=== PATIENT | male | born 1945 ===

== ENCOUNTER 2021-03-28 17:29 | Emergency (ER) | payer MEDICARE, MEDICAID, SELFPAY ==
--- NOTE | ~2021-03-28 | XR_ITS ---
EXAMINATION: XR CHEST CLINICAL INFORMATION: Wheezing and dizziness. COMPARISON: None TECHNIQUE: Frontal view of the chest was obtained. 7:36 PM FINDINGS: Small linear band of atelectasis or scarring just above left diaphragm. The lungs are otherwise normally aerated. No acute abnormality. No pulmonary vascular congestion. There is no pleural effusion. The heart size is normal. The cardiac and mediastinal contours are normal. There are calcifications of the thoracic aorta. Normal gas filled loops under both right and left diaphragm. No evidence of free air in the abdomen. There are multilevel degenerative changes of dorsal spine. XR/XR chest 1V IMPRESSION: No acute abnormality of chest.
--- NOTE | ~2021-03-28 | CT_ITS ---
EXAMINATION: CT HEAD WITHOUT CONTRAST CLINICAL INFORMATION: Dizzy 5 days, history of pituitary tumor COMPARISON: None TECHNIQUE: Contiguous axial imaging was performed from the skull base to vertex without intravenous administration of contrast. This CT examination was performed using dose optimization techniques as appropriate, variously including the following: *Automated exposure control *Adjustment of mA and/or kV according to patient size (this includes techniques or standardized protocols for targeted exams where dose is matched to indication/reason for exam; i.e. extremities or head) *Use of iterative reconstruction technique DLP: 780 mGy-cm FINDINGS: There is no evidence of acute intracranial hemorrhage or territorial infarction. Mass is noted in the left aspect of the sella, suboptimally assessed on CT. No significant mass effect or midline shift is seen. Corley to white matter differentiation is well preserved. No extra-axial fluid collections are identified. The ventricles are normal in size. There is mild periventricular white matter hypoattenuation consistent with chronic small vessel ischemic disease. Mild volume loss is noted. The osseous structures and soft tissues are normal. The mastoid air cells and visualized portions of the paranasal sinuses are well aerated. CT/CT head/brain wo con IMPRESSION: No acute intracranial pathology. Sellar mass in keeping with history of pituitary tumor, suboptimally assessed on CT.
--- NOTE | 2021-03-28 18:55 | ECG_ITS ---
Test Reason : dizzy Blood Pressure : / mmHG Vent. Rate : 057 BPM Atrial Rate : 057 BPM P-R Int : 216 ms QRS Dur : 080 ms QT Int : 448 ms P-R-T Axes : 042 036 063 degrees QTc Int : 436 ms Sinus bradycardia with 1st degree A-V block Nonspecific ST and T wave abnormality Abnormal ECG No previous ECGs available Referred By: Generic ED Physician Electronically Signed By:ALFONZO CERDA
[2021-03-28 18:57] VITALS: BP 185/100; PULSE 62; RESP 20; TEMP 36.2; O2SAT 96; BMI 30.2
[2021-03-28 19:27] LABS: MANUAL DIFF FLAG NO
[2021-03-28 19:44] LABS: Basophils Percent Auto 0.7 % (0-2); Eosinophils Absolute Auto 0.2 X10*3/uL (0.0-0.4); Eosinophils Percent Auto 2.6 % (0-4); Hematocrit 39.2 % (42.0-52.0); Hemoglobin 12.7 g/dl (14.0-18.0); Imm Gran Abs Auto 0.01 X10*3/uL (0.00-0.03); Imm Gran Pct Auto 0.2 % (0.0-0.4); Lymphocytes Absolute Auto 1.5 X10*3/uL (1.2-4.9); Lymphocytes Percent Auto 24.5 % (20-40); Mean Corpuscular HGB Conc 32.4 g/dl (31.0-36.0); Mean Corpuscular Hemoglobin 28.4 pg (27.0-33.0); Mean Corpuscular Volume 87.7 fL (80.0-98.0); Mean Platelet Volume 10.3 fL (9.4-12.4); Monocytes Absolute Auto 0.4 X10*3/uL (0.1-1.2); Monocytes Percent Auto 7.2 % (2-11); Neutrophils Percent Auto 64.8 % (45-73); Platelet Count 208 X10*3/uL (160-400); Red Blood Count 4.47 X10*6/uL (4.60-5.80); Red Cell Distribution Width 13.9 % (11.0-16.0); White Blood Count 6.1 X10*3/uL (4.8-10.8)
[2021-03-28 19:47] LABS: COVID-19 Test Negative (Negative); IDNOW Serial# 9DD0AD1C
[2021-03-28 19:55] LABS: Anion Gap 11 (12-20); Blood Urea Nitrogen 15 mg/dL (9-16); Calcium 9.6 mg/dL (8.4-10.2); Carbon Dioxide 28 mmol/L (22-29); Chloride 107 mmol/L (96-108); Creatinine Clr Calc Pharmacy 91.4; Estimated Glomerular Filt Rate > 60; Glucose Random 103 mg/dL (60-115); Potassium 4.3 mmol/L (3.3-5.1); Sodium 142 mmol/L (135-145)
[2021-03-28 20:00] LABS: Troponin-I High Sensitivity 9.1 ng/L (<3.5-35.0)
[2021-03-28 22:47] VITALS: BP 185/103; PULSE 67; RESP 13; O2SAT 99
--- NOTE | 2021-03-28 23:05 | ED_ITS ---
HPI - Dizziness General Chief Complaint: Dizziness Stated Complaint: weakness,dizziness fatigue Time Seen by Provider: 03/28/21 22:39 Source: patient Mode of arrival: ambulatory Limitations: no limitations History of Present Illness HPI Narrative: Patient is brought today to the emergency room by his daughter. Patient is Agerian/Faroese speaking. the Faroese engine installer from the [employer] system the patient could not understand well each other. The engine installer suggested to get an citizen of [place] or surinamese engine installer or Stateless, but none of those 3 languages were available today. Patient understand Icelandic, patient is able to communicate back to us with small sentences. Patient states that for the last 5 days, he has been dizzy. Patient has been taking meclizine. The dizziness is intermittent. At this time patient states that he does not feel dizzy. However, he does feel weak and it has been ongoing for 5 days. Patient denies headache, no chest pain, no shortness of breath. Patient went to see his [facility] physician today and patient was sent to the emergency room. Patient states that he has history of hemorrhoids but at this time they are not bleeding. At this time, patient's only complaint is feeling weak. Denies fever or chills, no UTI symptoms I spoke with the patient's daughter. Seems that the patient has been having memory issues, therefore not compliant with his blood pressure medication. Patient takes amlodipine but today took his 1st dose after many months of not taking his medications. The daughter also reports that the patient falls approximately once to twice a week, seems that patient has been having shuffling-like gait for several months. Also, in 2019, patient had a significant ulcer bleed, patient required 3 units of packed red blood cells transfused. Patient's daughter also informed us that patient did not receive any treatment for the pituitary tumor. It was monitored and these symptoms self-resolved. Related Data Home Medications Medication Instructions Recorded Confirmed amlodipine 10 mg tablet 10 mg PO DAILY 03/28/21 atorvastatin 40 mg tablet 40 mg PO DAILY 03/28/21 cetirizine 10 mg tablet 10 mg PO DAILY PRN 03/28/21 Allergies Allergy/AdvReac Type Severity Reaction Status Date / Time Seasonal Allergies Allergy Mild sneezing, Verified 03/28/21 16:22 watery eyes Review of Systems Verdana 4l Review of Systems: Verdana 4d Verdana 4d Constitutional : No Weight loss, No Fever, No Chills, No Night Sweats, complaining of weakness ENT/Mouth : No Hearing loss, No Ear Pain, No Nasal Congestion, No Sinus Pain, No Hoarseness, No sore throat, No Rhinorrhea, No Swallowing DifficultyDifficulty Eyes: No Eye Pain, No Swelling, No Redness, No Foreign Body, No Discharge, No Vision Changes Cardiovascular : No Chest Pain, No SOB, No Dyspnea on Exertion, No Orthopnea, No Edema, No Palpitations Respiratory : No Cough, No Sputum, No Wheezing, No Smoke Exposure, No Dyspnea Gastrointestinal : No Nausea, No Vomiting, No Diarrhea, No Constipation, No abdominal Pain, No Hematochezia, No Melena Genitourinary : no irregular bleeding, No Dysuria, No Urinary Frequency, No Hematuria, No Urinary Incontinence, No Urgency, No Flank Pain, No Urinary Flow Changes, No Hesitancy Musculoskeletal : No joint pain, No Myalgias, No Joint Swelling Skin : No Skin Lesions, No rash Neuro : No Weakness, No Numbness, No Paresthesias, No Loss of Consciousness, complaining of intermittent dizziness, No Headache Psych : No Anxiety/Panic, No Depression, No SI/HI/AH/VH, No Social Issues, Heme/Lymph: No Bruising, No Bleeding,No Lymphadenopathy Endocrine : No Polyuria, No Polydipsia, No Temperature Intolerance [facility] Past Medical History Medical History (Updated 03/29/21 @ 01:16 by Jessica Child MD) GI bleed Hyperlipidemia Hypertension Seasonal allergies Social History Social History Alcohol intake: never Patient Tobacco Use Status: Never used Tobacco Use of substances other than those prescribed or required for medical reasons: No Advance Directives: No Physical Exam Verdana 4l Vital Signs: Verdana 4d Verdana 4d Vital Signs: Verdana 4d Verdana 4Bd Last Vital Signs Verdana 4d Denture Model Maker New 4d Denture Model Maker New 4d Temp 97.1 F 03/28/21 18:57 Denture Model Maker New 4d Pulse 70 03/28/21 23:21 Denture Model Maker New 4d Resp 13 03/28/21 22:47 BP 195/116 H 03/28/21 23:21 Pulse Ox 99 03/28/21 22:47 BMI result Body Mass Index 30.2 Const: Other: Appearance: Alert. Oriented X3. No acute distress. Eyes: Pupils equal, round and reactive to light. ENT: Pharynx normal. Neck: Normal inspection. Neck supple. No lymph nodes noted. No crepitus CVS: Normal heart rate and rhythm. Pulses normal. Normal S1 and S2 Respiratory: No respiratory distress. Breath sounds normal. No Wheezing. No rales Abdomen: Soft and nontender. No rigidity. No distention. MONICA: Very small amount of blood-tinged mucus, no stool obtained Skin: Skin warm and dry. Normal skin color. Normal skin turgor. Extremities: No lower extremity edema. No Lacerations. No Rash Neuro: Oriented X 3. No motor deficit. No sensory deficit. Moving all extermities. No slurred speech. Course Course Course Narrative: I discussed with the patient's daughter that the patient is having trouble provi ding a urine sample because of incontinence. Patient is not agreeable with the idea of having a straight catheterization. Patient will have a urinalysis with her PCP. Also, discussed with the patient's daughter that the hemoglobin is on the lower side and the guaiac test was positive. It is likely secondary to hemorrhoids, however he may need another colonoscopy. The daughter states the patient had a colonoscopy 2018 and was negative. Also, physical therapy/case management was offered, but patient's daughter will arrange everything to the patient's primary care physician. At this time, patient states that he has no dizziness. Patient's blood pressure on discharge 185 systolic. This blood pressure is chronic. Patient has not been taking any of his medication for months. Patient did receive 1 dose of 100 mg p.o. labetalol, blood pressure dropped from 200 systolic to 185 systolic. Patient states he is asymptomatic. MDM - Dizziness Lab Data Result diagrams: 03/28/21 19:18 03/28/21 19:18 Labs: Lab Results 03/28/21 03/28/21 03/28/21 Range/Units 19:18 19:18 19:18 WBC 6.1 (4.8-10.8) X10*3/uL RBC 4.47 L (4.60-5.80) X10*6/uL Hgb 12.7 L (14.0-18.0) g/dl Hct 39.2 L (42.0-52.0) % MCV 87.7 (80.0-98.0) fL MCH 28.4 (27.0-33.0) pg MCHC 32.4 (31.0-36.0) g/dl RDW 13.9 (11.0-16.0) % Plt Count 208 (160-400) X10*3/uL MPV 10.3 (9.4-12.4) fL Immature Gran % (Auto) 0.2 (0.0-0.4) % Neut % (Auto) 64.8 (45-73) % Lymph % (Auto) 24.5 (20-40) % [place] % (Auto) 7.2 (2-11) % Eos % (Auto) 2.6 (0-4) % Baso % (Auto) 0.7 (0-2) % Lymph # (Auto) 1.5 (1.2-4.9) X10*3/uL [place] # (Auto) 0.4 (0.1-1.2) X10*3/uL Eos # (Auto) 0.2 (0.0-0.4) X10*3/uL Baso # (Auto) 0.0 (0.0-0.2) X10*3/uL Abs Immat Gran (auto) 0.01 (0.00-0.03) X10*3/uL Absolute Neuts (auto) 4.0 (2.0-8.3) x10*3/uL Absolute Nucleated RBC 0.000 (0.0-0.012) X10*3/uL Nucleated RBC % (auto) 0.0 (0.0-0.2) /100WBC Sodium 142 (135-145) mmol/L Potassium 4.3 (3.3-5.1) mmol/L Chloride 107 (96-108) mmol/L Carbon Dioxide 28 (22-29) mmol/L Anion Gap 11 L (12-20) BUN 15 (9-16) mg/dL Creatinine 0.81 (0.5-1.4) mg/dL Estim Creat Clear Calc 91.4 Estimated GFR > 60 Random Glucose 103 (60-115) mg/dL Calcium 9.6 (8.4-10.2) mg/dL Troponin I High Sens 9.1 (<3.5-35.0) ng/L Stool Occult Blood (NEGATIVE) COVID-19 ([facility]) (Negative) COVID-19 Clin Com 03/28/21 03/28/21 Range/Units 19:18 23:29 WBC (4.8-10.8) X10*3/uL RBC (4.60-5.80) X10*6/uL Hgb (14.0-18.0) g/dl Hct (42.0-52.0) % MCV (80.0-98.0) fL MCH (27.0-33.0) pg MCHC (31.0-36.0) g/dl RDW (11.0-16.0) % Plt Count (160-400) X10*3/uL MPV (9.4-12.4) fL Immature Gran % (Auto) (0.0-0.4) % Neut % (Auto) (45-73) % Lymph % (Auto) (20-40) % [place] % (Auto) (2-11) % Eos % (Auto) (0-4) % Baso % (Auto) (0-2) % Lymph # (Auto) (1.2-4.9) X10*3/uL [place] # (Auto) (0.1-1.2) X10*3/uL Eos # (Auto) (0.0-0.4) X10*3/uL Baso # (Auto) (0.0-0.2) X10*3/uL Abs Immat Gran (auto) (0.00-0.03) X10*3/uL Absolute Neuts (auto) (2.0-8.3) x10*3/uL Absolute Nucleated RBC (0.0-0.012) X10*3/uL Nucleated RBC % (auto) (0.0-0.2) /100WBC Sodium (135-145) mmol/L Potassium (3.3-5.1) mmol/L Chloride (96-108) mmol/L Carbon Dioxide (22-29) mmol/L Anion Gap (12-20) BUN (9-16) mg/dL Creatinine (0.5-1.4) mg/dL Estim Creat Clear Calc Estimated GFR Random Glucose (60-115) mg/dL Calcium (8.4-10.2) mg/dL Troponin I High Sens (<3.5-35.0) ng/L Stool Occult Blood POSITIVE (NEGATIVE) COVID-19 ([facility]) Negative (Negative) COVID-19 Clin Com See Note Imaging Data CT scan - head: Radiologist's impression: FINDINGS: There is no evidence of acute intracranial hemorrhage or territorial infarction. Mass is noted in the left aspect of the sella, suboptimally assessed on CT. No significant mass effect or midline shift is seen. Corley to white matter differentiation is well preserved. No extra-axial fluid collections are identified. The ventricles are normal in size. There is mild periventricular white matter hypoattenuation consistent with chronic small vessel ischemic disease. Mild volume loss is noted. The osseous structures and soft tissues are normal. The mastoid air cells and visualized portions of the paranasal sinuses are well aerated. ? CT/CT head/brain wo con IMPRESSION: No acute intracranial pathology. Sellar mass in keeping with history of pituitary tumor, suboptimally assessed on CT. Discharge Plan Discharge Clinical Impression: Weakness, Hypertension, Anemia Patient Disposition: Home, Self-Care Instructions: Weakness (ED) Additional Instructions: Please follow-up with your primary care physician tomorrow. If you have any worsening or new symptoms, please return to the emergency room or call 911 Prescriptions: No Action amlodipine 10 mg tablet 10 mg PO DAILY 0RF atorvastatin 40 mg tablet 40 mg PO DAILY 0RF cetirizine 10 mg tablet 10 mg PO DAILY [id number] Interventions: ED Discharge Assessment Last Done: 03/29/21 01:12
[2021-03-28 23:16] VITALS: BP 183/111; PULSE 63
[2021-03-28] MEDS: Labetalol HCL 100 MG TABLET PO (23:17)
[2021-03-28 23:19] VITALS: BP 189/110; PULSE 68
[2021-03-28 23:21] VITALS: BP 195/116; PULSE 70
[2021-03-28 23:33] LABS: OBS Int Ctl Valid YES; OBS1 POSITIVE (NEGATIVE)
[2021-03-29 01:13] VITALS: BP 185/110; PULSE 68; RESP 14; TEMP 36.4; O2SAT 93
== END 2021-03-29 01:22 | disposition home or self-care (01) ==
PROVIDERS: Emergency Provider Emergency Medicine
DX: R53.1 Weakness (principal); I10 Essential (primary) hypertension; D64.9 Anemia, unspecified; Z20.822 Contact with and (suspected) exposure to COVID-19; Z91.14 Patient's other noncompliance with medication regimen
CPT/HCPCS: 36415; 70450; 71045; 80048; 82272; 84484; 85025; 87635; 93005; 99285

== ENCOUNTER 2021-12-02 06:13 | Emergency (ER) | payer MEDICARE, MEDICAID, SELFPAY ==
--- NOTE | ~2021-12-02 | XR_ITS ---
EXAMINATION: XR HAND, LEFT CLINICAL INFORMATION: Fall. Left hand pain. COMPARISON: None TECHNIQUE: PA, lateral, and oblique views of the left hand. FINDINGS: There is irregular lucency involving the proximal end distal phalanx first digit most suggestive of fracture. No additional fracture seen. There is mild osteopenia There is no soft tissue swelling. XR/XR hand LT min 3V IMPRESSION: Suspect nondisplaced fracture base of distal phalanx proximal segment Mild osteopenia.
--- NOTE | ~2021-12-02 | CT_ITS ---
EXAMINATION: CT BRAIN AND CT CERVICAL SPINE WITHOUT CONTRAST. CLINICAL INFORMATION: Head injury. Fell down the stairs. COMPARISON: CT brain 03/28/2021 TECHNIQUE: 5 mm thin axial and reformatted 2 mm thin sagittal and coronal images of brain were obtained. Subsequently axial 3 mm thin and reformatted 2 mm thin sagittal coronal images of cervical spine were obtained. DL 1366 FINDINGS: Brain: There is no acute intra-axial, extra-axial bleed, masses or midline shift. Both lateral ventricles are symmetrical in size and configuration without enlargement. There is no acute infarction evolution. No evidence of edema. 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 Bone windows reveal no calvarial abnormality. Bilateral paranasal sinuses and mastoid air cells are symmetrical and normal. There is no scalp soft tissue abnormality. Cervical spine: On sagittal reconstructed images there is normal cervical lordosis. The vertebral heights and alignment is normal. There is loss of C5-C6, C6-C7 and C7-T1 disc heights with ventral and posterior spondylosis. No visible acute fracture, dislocations subluxation seen. The craniovertebral junction and the C1-C2 alignment is normal. There is left C3-C4, C4-C5 moderate facet joint arthropathy. No aggressive lytic or sclerotic process seen. The prevertebral and paravertebral soft tissues are normal. CT/CT head/brain wo IV con IMPRESSION: No acute intracranial process seen. No change in known left cerebellar mass from previous exam 03/28/2021. Degenerative disc changes cervical spine see 5-6, C6-C7 and C7-T1 disc levels. No visible acute fracture, dislocation or subluxation seen.
--- NOTE | ~2021-12-02 | CT_ITS ---
EXAMINATION: CT BRAIN AND CT CERVICAL SPINE WITHOUT CONTRAST. CLINICAL INFORMATION: Head injury. Fell down the stairs. COMPARISON: CT brain 03/28/2021 TECHNIQUE: 5 mm thin axial and reformatted 2 mm thin sagittal and coronal images of brain were obtained. Subsequently axial 3 mm thin and reformatted 2 mm thin sagittal coronal images of cervical spine were obtained. DL 1366 FINDINGS: Brain: There is no acute intra-axial, extra-axial bleed, masses or midline shift. Both lateral ventricles are symmetrical in size and configuration without enlargement. There is no acute infarction evolution. No evidence of edema. 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 Bone windows reveal no calvarial abnormality. Bilateral paranasal sinuses and mastoid air cells are symmetrical and normal. There is no scalp soft tissue abnormality. Cervical spine: On sagittal reconstructed images there is normal cervical lordosis. The vertebral heights and alignment is normal. There is loss of C5-C6, C6-C7 and C7-T1 disc heights with ventral and posterior spondylosis. No visible acute fracture, dislocations subluxation seen. The craniovertebral junction and the C1-C2 alignment is normal. There is left C3-C4, C4-C5 moderate facet joint arthropathy. No aggressive lytic or sclerotic process seen. The prevertebral and paravertebral soft tissues are normal. CT/CT cervical spine wo IV con IMPRESSION: No acute intracranial process seen. No change in known left cerebellar mass from previous exam 03/28/2021. Degenerative disc changes cervical spine see 5-6, C6-C7 and C7-T1 disc levels. No visible acute fracture, dislocation or subluxation seen.
[2021-12-02 06:31] VITALS: BP 155/94; PULSE 78; RESP 16; TEMP 37; O2SAT 97; BMI 32.1
--- NOTE | 2021-12-02 06:39 | ECG_ITS ---
Test Reason : chest pain Blood Pressure : / mmHG Vent. Rate : 070 BPM Atrial Rate : 070 BPM P-R Int : 224 ms QRS Dur : 080 ms QT Int : 408 ms P-R-T Axes : 060 -03 077 degrees QTc Int : 440 ms Sinus rhythm with 1st degree A-V block Otherwise normal ECG When compared with ECG of 28-MAR-2021 19:07, Nonspecific ST and T wave abnormality is no longer Present Referred By: Itz Rios Electronically Signed By:JUANITA DIAZ
--- NOTE | 2021-12-02 07:20 | ED_ITS ---
HPI - Fall General Chief Complaint: Fall Stated Complaint: lac on ear Time Seen by Provider: 12/02/21 07:08 Source: patient and family (Daughter, Kerri) Mode of arrival: ambulatory Limitations: language barrier (The patient speaks Slovak and Irish. He does speak some Moroccan. The patient's daughter gave most of the information since the patient does have memory deficits) History of Present Illness HPI Narrative: 76-year-old male who presents emergency department for evaluation of injuries from a fall. The patient was walking down stairs at around 04:30 hours when he lost his balance and fell. The patient was wearing ear buds at the time and he fell on his right side striking the right side of his head and ear as he fell. The ear bud broke and did cause a laceration to his ear. The patient had no l oss of consciousness. He has no headache, nausea or vomiting since the fall. He is complaining of right ear pain , neck pain, left hand pain and lower back pain with pain radiating down his left leg. The patient's daughter Kerri is here in the emergency department. She is a nurse. She states that her father has been falling frequently and was seen last week at [facility] for a fall. Patient had a negative workup at that time. The patient has been referred to physical therapy to try to help with his balance and strength issues. complaint: fall Onset (ago): hour(s) (3) Fall from: down stairs (#) (Walking down stairs, fell down 8 steps) Fall witnessed: no Place fall occurred: home Loss of consciousness: none Prolonged down time: no Symptoms prior to fall: other (He lost his balance) Context: history of frequent falls Location of injury: head, face (Right ear), neck and back (Lower back) Severity: moderate Severity scale (1-10): 7 Quality: sharp Associated symptoms (after fall): numbness (Left leg) Related Data Home Medications Medication Instructions Recorded Confirmed amlodipine 10 mg tablet 10 mg PO DAILY 03/28/21 atorvastatin 40 mg tablet 40 mg PO DAILY 03/28/21 cetirizine 10 mg tablet 10 mg PO DAILY PRN 03/28/21 Previous Rx's Medication Instructions Recorded cephalexin 500 mg capsule 500 mg PO TID 5 days #15 caps 12/02/21 Allergies Allergy/AdvReac Type Severity Reaction Status Date / Time Seasonal Allergies Allergy Mild sneezing, Verified 03/28/21 16:22 watery eyes Review of Systems Review of Systems: Yes all other systems are reviewed and are negative [facility] Past Medical History [facility] Narrative: Social history: The patient lives with his daughter me staton. He does not smoke cigarettes, drink alcohol or use drugs. Medical History GI bleed Hyperlipidemia Hypertension Seasonal allergies Social History Social History Alcohol intake: never Patient Tobacco Use Status: Never used Tobacco Advance Directives: Yes Advance Directives Information Provided: Yes Advance Directives on File: No Physical Exam Vital Signs: Vital Signs: Last Vital Signs Temp 98.6 F 12/02/21 06:31 Pulse 78 12/02/21 06:31 Resp 16 12/02/21 06:31 BP 155/94 H 12/02/21 06:31 Pulse Ox 97 12/02/21 06:31 O2 Del Method 12/02/21 06:31 BMI result Body Mass Index 32.1 Const: Other: Awake, alert, male patient, pleasant, cooperative, does answer questions appropriately, does not appear to be in distress Orientation/consciousness: oriented to person and oriented to place HEENT: Other: 4.0 cm, complex Flap laceration to the right ear. There is also a small area of skin avulsion which is actively bleeding Head: Yes normal to inspection, Yes normocephalic and Yes atraumatic General nose exam: Normal external nose present Face and sinus: Yes normal facial exam Mouth: Normal oral and palatal mucosa present Throat: Yes posterior oropharynx normal Eyes: General: appearance normal, both eyes and all related structures Pupils: Equal, round and reactive pupils present Neck: Other: C-spine tenderness diffusely and tenderness with paraspinal muscles bilaterally Neck: Yes normal visual inspection, Yes no lymphadenopathy, Yes trachea midline and Yes supple Chest: Chest palpation & inspection: normal inspection of the chest and normal palpation of entire chest wall Resp: Effort & Inspection: normal respiratory effort and able to speak in complete sentences Auscultation: clear to auscultation bilaterally Cardio: Rate: regular rate Rhythm: regular rhythm Heart sounds: S1 normal heart sound present, S2 normal heart sound present and no murmurs GI: Inspection: Yes normal to inspection Palpation (GI): Soft to palpation, nontender and no guarding Auscultation: normal bowel sounds : General: Yes no CVA tenderness Back/Spine/Pelvis: Other: Tender bilateral paraspinal muscles, no point tenderness palpation of the vertebrae, increased tenderness on the left compared to the right, negative straight leg raises bilaterally Back: no CVA tenderness Skin: General skin exam: no rashes or lesions noted Neuro: General: oriented to person and oriented to place Cranial nerves: Yes CN's II-XII intact bilaterally and Yes Equal, round and reactive pupils present Cognition (Neuro): normal cognition Motor exam (neuro): 5/5 motor strength present throughout Extrem: General: Yes normal to inspection Psych: Appearance: grossly normal Speech and movement: Normal speech and movement present Affect: normal affect Attitude: cooperative Course Course Course Narrative: 76-year-old male who presents emergency department for evaluation of injuries after falling down 8 steps at 04:30 hours this morning. The patient did strike his head when he fell and also injured his right ear from a year but that broke. He is currently complaining of neck pain, lower back pain and left hand pain. Examination did reveal a flap laceration to the right ear which will require repair. I did order laboratory evaluation includes CBC, CMP, PT/INR, PTT, EKG. I will also obtain a CT scan of the patient's head and cervical spine. X-rays of patient's left hand will be obtained as well. Patient did receive acetaminophen and ibuprofen prior to coming to emergency department for I did order Toradol 15 mg IV for his pain. The daughter would like to avoid narcotics in this patient since she is concerned that all neck is balance worse and making confused and I agree with this plan. 0900: The patient's your laceration was repaired by me using Vicryl Rapide 5.0 sutures times 14 sutures total. Patient tolerated the procedure well. Patient does have a small area of avulsion is air which is oozing blood, this was dressed with bacitracin and a Surgicel dressing. X-ray of the patient's left hand did reveal a fracture of the base of the distal phalanx of the thumb however the patient does not have tenderness palpation of this area in his tenderness is more over the base of the proximal phalanx of the thumb. Patient was placed in a thumb spica splint. 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 CT scan of the cervical spine revealed no acute fractures but significant degenerative disc disease of the cervical spine C5-6, C6-C7, C7-T1. The patient will be started on ibuprofen and Tylenol for pain. He has also started prophylactically on Keflex 500 mg 3 times a day for 5 days to try to prevent infection of the cartilage of his ear.. Procedures Procedure Narrative Procedure Narrative: Complex 4.0 flap laceration to the right ear: The patient's laceration was prepped with Betadine and anesthetized with 1% lidocaine with epinephrine. After the wound was anesthetized I pulled back the flap, there is exposed underlying cartilage but there does not appear to be any obvious cartilage fracture. The area was irrigated with normal saline. The flap was then tacked back down using 5.0 Vicryl Rapide sutures times 14 sutures. There is a small area of abrasion which is using blood which cannot be surgically repaired. This was dressed with bacitracin and Surgicel and a pressure dressing was applied by the nurse. Given the cartilage exposure, the patient was started prophyl actically on Keflex and given his 1st dose 500 mg orally here in the emergency department. The patient tolerated the procedure well. MDM - Fall Lab Data Result diagrams: 12/02/21 07:37 12/02/21 07:37 Labs: Lab Results 12/02/21 12/02/21 12/02/21 Range/Units 07:37 07:37 07:37 WBC 8.4 (4.8-10.8) X10*3/uL RBC 4.52 L (4.60-5.80) X10*6/uL Hgb 12.3 L (14.0-18.0) g/dl Hct 37.7 L (42.0-52.0) % MCV 83.4 (80.0-98.0) fL MCH 27.2 (27.0-33.0) pg MCHC 32.6 (31.0-36.0) g/dl RDW 14.5 (11.0-16.0) % Plt Count 203 (160-400) X10*3/uL MPV 9.5 (9.4-12.4) fL Immature Gran % (Auto) 0.5 H (0.0-0.4) % Neut % (Auto) 81.2 H (45-73) % Lymph % (Auto) 10.3 L (20-40) % [place] % (Auto) 6.8 (2-11) % Eos % (Auto) 0.8 (0-4) % Baso % (Auto) 0.4 (0-2) % Lymph # (Auto) 0.9 L (1.2-4.9) X10*3/uL [place] # (Auto) 0.6 (0.1-1.2) X10*3/uL Eos # (Auto) 0.1 (0.0-0.4) X10*3/uL Baso # (Auto) 0.0 (0.0-0.2) X10*3/uL Abs Immat Gran (auto) 0.04 H (0.00-0.03) X10*3/uL Absolute Neuts (auto) 6.9 (2.0-8.3) x10*3/uL Absolute Nucleated RBC 0.000 (0.0-0.012) X10*3/uL Nucleated RBC % (auto) 0.0 (0.0-0.2) /100WBC PT 12.3 (10.0-13.1) SEC INR 1.1 (0.9-1.1) APTT 34.0 (26.0-36.4) SEC Sodium 141 (135-145) mmol/L Potassium 3.8 (3.3-5.1) mmol/L Chloride 105 (96-108) mmol/L Carbon Dioxide 27 (22-29) mmol/L Anion Gap 13 (12-20) BUN 21 H (9-16) mg/dL Creatinine 0.83 (0.5-1.4) mg/dL Estim Creat Clear Calc 87.7 Estimated GFR > 60 Random Glucose 131 H (60-115) mg/dL Calcium 9.3 (8.4-10.2) mg/dL Total Bilirubin 0.3 (0.0-1.0) mg/dL AST 24 (5-37) U/L ALT 11 (0-40) U/L Alkaline Phosphatase 85 (39-117) U/L Total Protein 6.8 (6.5-8.0) g/dL Albumin 4.0 (3.5-5.0) g/dL Discharge Plan Discharge Clinical Impression: Fall down stairs Qualifiers: Encounter type: initial encounter Qualified Code(s): W10.8XXA - Fall (on) (from) other stairs and steps, initial encounter Complex laceration of right ear Qualifiers: Encounter type: initial encounter Qualified Code(s): S01.311A - Laceration without foreign body of right ear, initial encounter Acute neck sprain Qualifiers: Encounter type: initial encounter Qualified Code(s): S13.9XXA - Sprain of joints and ligaments of unspecified parts of neck, initial encounter Closed head injury Qualifiers: Encounter type: initial encounter Qualified Code(s): S09.90XA - Unspecified injury of head, initial encounter Patient Disposition: Home, Self-Care Instructions: Head Injury (ED), Cervical Sprain (ED), Thumb Fracture (ED) Additional Instructions: The CT scan of your brain did not reveal any skull fracture/broken bones or bleeding in the brain from the fall. The x-ray of your cervical spine did not reveal any acute fracture/broken bones but you do have degenerative disc disease which is normal for your age. The x-ray of your left thumb did reveal possible fracture of the base of the distal phalanx however were not tender in this area. I am treating you with a thumb spica splint, you should wear this splint for 2 weeks and follow-up with the orthopedic doctor on-call (Dr. Ta) for re-evaluation. I used Vicryl Rapide 5.0 sutures to repair your your laceration. These are dissolvable stitches that should dissolved in 7-10 days. If they do not dissolve completely then you should have your doctor remove the stitches that remain in place. You have a small skin avulsion which is using blood, this was dressed with Surgicel which is a special gauze that keeps blood right in the area and helps clotting. Try to leave the Surgicel dressing on for 2 days, replace the Surgi joe dressing if it falls off. Apply bacitracin twice a day until the stitches dissolved. Take Keflex (cephalexin) 500 mg pills, 1 pill 3 times a day prophylactically to try to prevent infection of the cartilage of your ear. Follow-up with your doctor in 2 days. Please return to the emergency department if your symptoms get worse or if you develop any symptoms that are concerning to you. Prescriptions: New cephalexin 500 mg capsule 500 mg PO TID 5 Days Qty: 15 0RF No Action amlodipine 10 mg tablet 10 mg PO DAILY atorvastatin 40 mg tablet 40 mg PO DAILY cetirizine 10 mg tablet 10 mg PO DAILY PRN Referrals: Wesley Ta MD [Physician] - 2 weeks
[2021-12-02 07:41] LABS: MANUAL DIFF FLAG NO
[2021-12-02 07:45] LABS: Basophils Percent Auto 0.4 % (0-2); Eosinophils Absolute Auto 0.1 X10*3/uL (0.0-0.4); Eosinophils Percent Auto 0.8 % (0-4); Hematocrit 37.7 % (42.0-52.0); Hemoglobin 12.3 g/dl (14.0-18.0); Imm Gran Abs Auto 0.04 X10*3/uL (0.00-0.03); Imm Gran Pct Auto 0.5 % (0.0-0.4); Lymphocytes Absolute Auto 0.9 X10*3/uL (1.2-4.9); Lymphocytes Percent Auto 10.3 % (20-40); Mean Corpuscular HGB Conc 32.6 g/dl (31.0-36.0); Mean Corpuscular Hemoglobin 27.2 pg (27.0-33.0); Mean Corpuscular Volume 83.4 fL (80.0-98.0); Mean Platelet Volume 9.5 fL (9.4-12.4); Monocytes Absolute Auto 0.6 X10*3/uL (0.1-1.2); Monocytes Percent Auto 6.8 % (2-11); Neutrophils Absolute Auto 6.9 x10*3/uL (2.0-8.3); Neutrophils Percent Auto 81.2 % (45-73); Platelet Count 203 X10*3/uL (160-400); Red Blood Count 4.52 X10*6/uL (4.60-5.80); Red Cell Distribution Width 14.5 % (11.0-16.0); White Blood Count 8.4 X10*3/uL (4.8-10.8)
[2021-12-02 07:47] LABS: INTERNATIONAL NORM RATIO 1.1 (0.9-1.1); Prothrombin Time 12.3 SEC (10.0-13.1)
[2021-12-02 08:02] LABS: Alanine Aminotransferase 11 U/L (0-40); Alkaline Phosphatase 85 U/L (39-117); Anion Gap 13 (12-20); Aspartate Amino Transferase 24 U/L (5-37); Bilirubin Total 0.3 mg/dL (0.0-1.0); Blood Urea Nitrogen 21 mg/dL (9-16); Calcium 9.3 mg/dL (8.4-10.2); Carbon Dioxide 27 mmol/L (22-29); Chloride 105 mmol/L (96-108); Creatinine Clr Calc Pharmacy 87.7; Estimated Glomerular Filt Rate > 60; Glucose Random 131 mg/dL (60-115); Potassium 3.8 mmol/L (3.3-5.1); Sodium 141 mmol/L (135-145); Total Protein 6.8 g/dL (6.5-8.0)
--- NOTE | 2021-12-02 08:12 | PC.NURSE ---
s/p fall right ear lac, provider at bedside doing sutures
[2021-12-02] MEDS: Diphth,Pertus(ACell),Tet Adult 0.5 ML SYRINGE IM (08:19)
[2021-12-02] MEDS: Lidocaine HCl 2% PF/Epi 1:200 20 ML VIAL INFILTRATI (08:21)
[2021-12-02] MEDS: Ketorolac Tromethamine 60 MG/2 ML VIAL IM (09:18)
[2021-12-02] MEDS: cephALEXin 500 MG CAPSULE PO (09:25)
== END 2021-12-02 10:00 | disposition home or self-care (01) ==
PROVIDERS: Emergency Provider Emergency Medicine Emergency Medical Services; PCP Student in an Organized Health Care Education/Training Program
DX: S09.90XA Unspecified injury of head, initial encounter (principal); R51.9 Headache, unspecified; S00.411A Abrasion of right ear, initial encounter; R07.89 Other chest pain; M54.2 Cervicalgia; M79.642 Pain in left hand; M54.50 Low back pain, unspecified; W10.9XXA Fall (on) (from) unspecified stairs and steps, initial encounter; Y93.9 Activity, unspecified; Y92.9 Unspecified place or not applicable; Y99.9 Unspecified external cause status; Z79.899 Other long term (current) drug therapy
CPT/HCPCS: 36415; 70450; 72125; 73130; 80053; 85025; 85610; 85730; 90471; 90715; 93005; 96372; 99284; J1885

== ENCOUNTER 2022-07-25 23:11 | Emergency (ER) | payer MEDICARE, MEDICAID, SELFPAY ==
--- NOTE | ~2022-07-25 | XR_ITS ---
EXAMINATION: XR FEMUR, LEFT CLINICAL INFORMATION: Status post fall COMPARISON: None available. TECHNIQUE: AP and lateral views of the left femur were obtained. FINDINGS: Alignment across the hip and knee is anatomic. No acute fracture is seen. No significant focal soft tissue abnormality identified. XR/XR femur LT 2V IMPRESSION: No acute findings identified.
--- NOTE | ~2022-07-25 | CT_ITS ---
EXAMINATION: NONCONTRAST HEAD CT NONCONTRAST CERVICAL SPINE CT INDICATION INFORMATION: Trauma COMPARISON: 12/02/2021 TECHNIQUE: Separate noncontrast CT examinations of the head and cervical spine were performed. Coronal head CT images and coronal and sagittal cervical spine images were created at the technologist workstation. DLP: 1289 mGy-cm DOSE LOWERING TECHNIQUES: This CT examination was performed using dose optimization techniques as appropriate, variously including the following: - Automated exposure control - Adjustment of mA and/or kV according to patient size (this includes techniques or standardized protocols for targeted exams were dose is matched to indication/reason for exam; i.e. extremities or head) - Use of iterative reconstruction technique FINDINGS: Head: There is no evidence of acute intracranial hemorrhage or territorial infarction. No abnormal mass-effect or midline shift is seen. Corley to white matter differentiation is well preserved. No extra-axial fluid collections are identified. The ventricles are normal in size. Left sellar mass appears similar to prior. There is mild periventricular white matter hypoattenuation consistent with chronic small vessel ischemic disease. Mild volume loss is noted. The osseous structures and soft tissues are normal. The mastoid air cells and visualized portions of the paranasal sinuses are well-aerated. Cervical spine: There is anatomic alignment of the vertebral bodies and posterior elements. Vertebral body heights are maintained. There is disc space narrowing and endplate osteophyte formation of the lower cervical spine. Mild to moderate multilevel facet arthropathy. No evidence of acute fracture. No prevertebral soft tissue swelling. Visualized portions of the lung apices are unremarkable. The thyroid gland is unremarkable. CT/CT cervical spine wo IV con IMPRESSION: 1. No acute findings identified in the head or cervical spine. 2. Chronic appearing changes as noted above.
--- NOTE | ~2022-07-25 | CT_ITS ---
EXAMINATION: CT CHEST, ABDOMEN AND PELVIS WITH CONTRAST CLINICAL INFORMATION: Trauma, fall COMPARISON: None TECHNIQUE: Multidetector volumetric imaging was performed through the chest, abdomen and pelvis following the administration of 85 mL of Omnipaque 350 intravenous contrast. Sagittal and coronal reformatted images were obtained on the technologist's workstation. Axial MIP volume rendering provided. This CT examination was performed using dose optimization techniques as appropriate, variously including the following: *Automated exposure control *Adjustment of mA and/or kV according to patient size (this includes techniques or standardized protocols for targeted exams where dose is matched to indication/reason for exam; i.e. extremities or head) *Use of iterative reconstruction technique DLP: 1819 mGy-cm FINDINGS: CHEST: Lungs: Suboptimally assessed due to respiratory motion artifact. Symmetric dependent regions of groundglass opacity bilaterally are favored to reflect atelectasis. Mediastinum: The visualized thyroid gland is unremarkable. There are subcentimeter mediastinal lymph nodes within the range of normal variation. Cardiac size is within normal limits; no pericardial effusion. Prominent ascending aorta measures 4.1 cm in diameter. Scattered calcifications noted along the aorta. Pleura: There is no significant effusion. No pleural mass or thickening. Chest Wall/Axilla: No axillary lymphadenopathy is present. ABDOMEN/PELVIS: Liver, Gallbladder, Biliary Tree: The liver is normal in size, shape, and attenuation. No focal hepatic lesion or biliary ductal dilatation is present. The gallbladder is unremarkable with no evidence of radiopaque gallstones, gallbladder wall thickening, or pericholecystic inflammatory changes. Pancreas: Unremarkable. Spleen: Unremarkable. Adrenal Glands: Unremarkable. Kidneys and Ureters: Bilateral nephrograms are symmetric. No hydronephrosis or obstructing calculus identified. There are numerous hypoattenuating lesions throughout both kidneys which are overall favored to represent cysts, though some are too small to definitively characterize; no dedicated follow-up recommended. Bladder: Unremarkable. Gastrointestinal Tract: No evidence of bowel obstruction or significant wall thickening. The appendix is unremarkable. No free fluid or free air is seen. Abdominal Wall: Fat-containing left inguinal hernia. There is a fluid collection in the deep subcutaneous tissues lateral to the right hip measuring approximately 10.2 x 3.4 x 14.1 cm. There is a thin peripheral rim and slight internal heterogeneity. This could reflect evolving hematoma if there is a history of recent trauma. Abscess could also be considered in the proper clinical setting. Lymphovascular Structures: Lymph nodes: Normal. Vascular: Moderate atherosclerotic calcification. Pelvic Viscera: Unremarkable. OSSEOUS STRUCTURES: There is a nondisplaced fracture of the anterolateral right ninth rib. Degenerative changes are noted in the spine. Proximal femurs appear intact. CT/CT abdomen pelvis w IV con IMPRESSION: 1. Nondisplaced fracture of the anterolateral right ninth rib. 2. Fluid collection in the deep subcutaneous tissues lateral to the right hip measuring up to 14.1 cm. This could reflect evolving hematoma if there is a history of recent trauma. Abscess could also be considered in the proper clinical setting. 3. Prominent ascending aorta measuring 4.1 cm in diameter.
--- NOTE | 2022-07-25 23:23 | ECG_ITS ---
Test Reason : CHEST PAIN Blood Pressure : / mmHG Vent. Rate : 074 BPM Atrial Rate : 074 BPM P-R Int : 218 ms QRS Dur : 078 ms QT Int : 408 ms P-R-T Axes : 072 -06 035 degrees QTc Int : 452 ms Sinus rhythm with 1st degree A-V block Inferior infarct , age undetermined Abnormal ECG When compared with ECG of 02-DEC-2021 07:29, No significant change was found Referred By: Kirill Marie Electronically Signed By:RUDDY GUTIERREZ MD
[2022-07-25 23:25] VITALS: BP 160/70; BP 162/89; PULSE 78; PULSE 81; RESP 16; TEMP 36.6; O2SAT 97; O2SAT 98; BMI 33.4
[2022-07-25 23:30] VITALS: BP 162/89; PULSE 81; RESP 16; TEMP 36.6; O2SAT 98
--- NOTE | 2022-07-25 23:34 | ED.WEAKNESS ---
HPI - Weakness General Chief complaint: Weakness Stated complaint: lethargy Time Seen by Provider: 07/25/22 23:34 Source: patient Mode of arrival: ambulatory Limitations: no limitations History of Present Illness HPI Narrative: Patient is 77 years old history of hypertension with dementia apparently fell about 7 days ago on the stairs about 8 steps no loss of consciousness family found him on the ground been watching him at home for concussion symptoms now bringing him as they noticed patient is more lethargic and confused and difficulty in walking patient denies any headache no neck pain no back has bruising or bilateral femur history of frequent falls in the past patient complaining of mid chest pain today, no shortness of breath Related Data Home Medications Medication Instructions Recorded Confirmed amlodipine 10 mg tablet 10 mg PO DAILY 03/28/21 atorvastatin 40 mg tablet 40 mg PO DAILY 03/28/21 cetirizine 10 mg tablet 10 mg PO DAILY PRN 03/28/21 Previous Rx's Medication Instructions Recorded cephalexin 500 mg capsule 500 mg PO TID 5 days #15 caps 12/02/21 ibuprofen 600 mg tablet 600 mg PO Q6H PRN fever or pain 07/26/22 #30 tabs Allergies Allergy/AdvReac Type Severity Reaction Status Date / Time Seasonal Allergies Allergy Mild sneezing, Verified 03/28/21 16:22 watery eyes Review of Systems Review of Systems: Yes all other systems are reviewed and are negative [facility] Past Medical History Medical History GI bleed Hyperlipidemia Hypertension Seasonal allergies Social History Social History Alcohol intake: never Patient Tobacco Use Status: Never used Tobacco Smoked in Last 30 Days: No Use of substances other than those prescribed or required for medical reasons: No Advance Directives: No Advance Directives Information Provided: No Physical Exam Vital Signs: Vital Signs: Last Vital Signs Temp 98.2 F 07/26/22 02:07 Pulse 79 07/26/22 02:07 Resp 16 07/26/22 02:07 BP 155/83 H 07/26/22 02:07 Pulse Ox 94 07/26/22 02:07 O2 Del Method Room Air 07/26/22 02:07 BMI result Body Mass Index 33.4 Appearance: Alert. Oriented X2. No acute distress. Eyes: PERRLA, No Nystagmus HEENT: Pharynx normal. Oral Mucosa moist AT NC Neck: Normal inspection. Neck supple. CVS: Normal heart rate and rhythm. Pulses normal. Respiratory: No respiratory distress. Equal air entry bilateral, no wheezing/rales/rhonchi lower rib tenderness+ Abdomen: Soft and nontender. Bowel sounds are present, no mass palpable, no CVA tenderness Skin: Skin warm and dry. Normal skin color. Normal skin turgor ecchymosis of different ages bilateral thigh. Extremities: No lower extremity edema. No calf tenderness stable good range of hip movements Neuro: Oriented X 3. No motor deficit. No sensory deficit.No cerebellar signs , cranial nerves II-XII intact Medications Administered Discontinued Medications Generic Name Dose Route Start Last Admin Trade Name Freq PRN Reason Stop Dose Admin Iohexol 85 ml 07/26/22 01:31 07/26/22 01:32 Iohexol 350 Mg/Ml 100 Ml Infus..Btl IV 07/26/22 01:32 85 ml ONCE ONE Administration Medical Decision Making Medical Decision Making [facility] Narrative: Patient dementia status post mechanical fall workup showed right 9th nondisplaced rib fracture patient family and health proxy does not want patient to go to rehab at this time will take the patient home patient able to ambulate few steps in the ER Lab Data [facility] Lab Attestation statement: I reviewed the patient's lab results. 07/26/22 00:23 07/26/22 00:23 Labs: Lab Results 07/26/22 07/26/22 07/26/22 Range/Units 00:23 00:23 00:23 WBC 5.7 (4.8-10.8) X10*3/uL RBC 3.72 L (4.60-5.80) X10*6/uL Hgb 10.5 L (14.0-18.0) g/dl Hct 32.1 L (42.0-52.0) % MCV 86.3 (80.0-98.0) fL MCH 28.2 (27.0-33.0) pg MCHC 32.7 (31.0-36.0) g/dl RDW 14.5 (11.0-16.0) % Plt Count 230 (160-400) X10*3/uL MPV 9.1 L (9.4-12.4) fL Immature Gran % (Auto) 0.4 (0.0-0.4) % Neut % (Auto) 72.4 (45-73) % Lymph % (Auto) 14.5 L (20-40) % [place] % (Auto) 9.3 (2-11) % Eos % (Auto) 3.0 (0-4) % Baso % (Auto) 0.4 (0-2) % Lymph # (Auto) 0.8 L (1.2-4.9) X10*3/uL [place] # (Auto) 0.5 (0.1-1.2) X10*3/uL Eos # (Auto) 0.2 (0.0-0.4) X10*3/uL Baso # (Auto) 0.0 (0.0-0.2) X10*3/uL Abs Immat Gran (auto) 0.02 (0.00-0.03) X10*3/uL Absolute Neuts (auto) 4.1 (2.0-8.3) x10*3/uL Absolute Nucleated RBC 0.000 (0.0-0.012) X10*3/uL Nucleated RBC % (auto) 0.0 (0.0-0.2) /100WBC PT 13.1 (10.0-13.1) SEC INR 1.1 (0.9-1.1) Sodium (135-145) mmol/L Potassium (3.3-5.1) mmol/L Chloride (96-108) mmol/L Carbon Dioxide (22-29) mmol/L Anion Gap (12-20) BUN (9-16) mg/dL Creatinine (0.5-1.4) mg/dL Estim Creat Clear Calc Estimated GFR Random Glucose (60-115) mg/dL Calcium (8.4-10.2) mg/dL Magnesium (1.6-2.6) mg/dL Total Bilirubin (0.0-1.0) mg/dL AST (5-37) U/L ALT (0-40) U/L Alkaline Phosphatase (39-117) U/L Troponin I High Sens 9.6 (<3.5-35.0) ng/L Total Protein (6.5-8.0) g/dL Albumin (3.5-5.0) g/dL Vitamin B12 (200-900) pg/mL Folate (> or = 4.0) ng/mL TSH (0.32-4.0) uIU/mL 07/26/22 07/26/22 Range/Units 00:23 00:23 WBC (4.8-10.8) X10*3/uL RBC (4.60-5.80) X10*6/uL Hgb (14.0-18.0) g/dl Hct (42.0-52.0) % MCV (80.0-98.0) fL MCH (27.0-33.0) pg MCHC (31.0-36.0) g/dl RDW (11.0-16.0) % Plt Count (160-400) X10*3/uL MPV (9.4-12.4) fL Immature Gran % (Auto) (0.0-0.4) % Neut % (Auto) (45-73) % Lymph % (Auto) (20-40) % [place] % (Auto) (2-11) % Eos % (Auto) (0-4) % Baso % (Auto) (0-2) % Lymph # (Auto) (1.2-4.9) X10*3/uL [place] # (Auto) (0.1-1.2) X10*3/uL Eos # (Auto) (0.0-0.4) X10*3/uL Baso # (Auto) (0.0-0.2) X10*3/uL Abs Immat Gran (auto) (0.00-0.03) X10*3/uL Absolute Neuts (auto) (2.0-8.3) x10*3/uL Absolute Nucleated RBC (0.0-0.012) X10*3/uL Nucleated RBC % (auto) (0.0-0.2) /100WBC PT (10.0-13.1) SEC INR (0.9-1.1) Sodium 144 (135-145) mmol/L Potassium 3.7 (3.3-5.1) mmol/L Chloride 110 H (96-108) mmol/L Carbon Dioxide 27 (22-29) mmol/L Anion Gap 11 L (12-20) BUN 22 H (9-16) mg/dL Creatinine 0.96 (0.5-1.4) mg/dL Estim Creat Clear Calc 78.3 Estimated GFR > 60 Random Glucose 109 (60-115) mg/dL Calcium 9.0 (8.4-10.2) mg/dL Magnesium 2.1 (1.6-2.6) mg/dL Total Bilirubin 0.5 (0.0-1.0) mg/dL AST 19 (5-37) U/L ALT 14 (0-40) U/L Alkaline Phosphatase 73 (39-117) U/L Troponin I High Sens (<3.5-35.0) ng/L Total Protein 6.0 L (6.5-8.0) g/dL Albumin 3.4 L (3.5-5.0) g/dL Vitamin B12 420 (200-900) pg/mL Folate 7.7 (> or = 4.0) ng/mL TSH 2.30 (0.32-4.0) uIU/mL Discharge Plan Discharge Clinical Impression: Weakness, Dementia, Rib fracture, Fall (on) (from) other stairs and steps, initial encounter Patient Disposition: Home, Self-Care Instructions: Rib Fracture (ED), Dementia (ED), Weakness (ED), Fall Prevention (ED) Additional Instructions: Patient has right 9th rib fracture which is nondisplaced Care and caution as advised Ibuprofen for pain Report to the ER if worsening of pain Prescriptions: New ibuprofen 600 mg tablet 600 mg PO Q6H PRN (Reason: fever or pain) Qty: 30 0RF No Action cephalexin 500 mg capsule 500 mg PO TID 5 Days Qty: 15 0RF amlodipine 10 mg tablet 10 mg PO DAILY atorvastatin 40 mg tablet 40 mg PO DAILY cetirizine 10 mg tablet 10 mg PO DAILY PRN Interventions: ED Discharge Assessment Last Done: 07/26/22 04:30 Discharge Date/Time: 07/26/22 04:30
[2022-07-26 00:29] LABS: Basophils Percent Auto 0.4 % (0-2); Eosinophils Absolute Auto 0.2 X10*3/uL (0.0-0.4); Hematocrit 32.1 % (42.0-52.0); Hemoglobin 10.5 g/dl (14.0-18.0); Imm Gran Abs Auto 0.02 X10*3/uL (0.00-0.03); Imm Gran Pct Auto 0.4 % (0.0-0.4); Lymphocytes Absolute Auto 0.8 X10*3/uL (1.2-4.9); Lymphocytes Percent Auto 14.5 % (20-40); MANUAL DIFF FLAG NO; Mean Corpuscular HGB Conc 32.7 g/dl (31.0-36.0); Mean Corpuscular Hemoglobin 28.2 pg (27.0-33.0); Mean Corpuscular Volume 86.3 fL (80.0-98.0); Mean Platelet Volume 9.1 fL (9.4-12.4); Monocytes Absolute Auto 0.5 X10*3/uL (0.1-1.2); Monocytes Percent Auto 9.3 % (2-11); Neutrophils Absolute Auto 4.1 x10*3/uL (2.0-8.3); Neutrophils Percent Auto 72.4 % (45-73); Platelet Count 230 X10*3/uL (160-400); Red Blood Count 3.72 X10*6/uL (4.60-5.80); Red Cell Distribution Width 14.5 % (11.0-16.0); White Blood Count 5.7 X10*3/uL (4.8-10.8)
[2022-07-26 00:35] LABS: INTERNATIONAL NORM RATIO 1.1 (0.9-1.1); Prothrombin Time 13.1 SEC (10.0-13.1)
--- OUTSIDE RECORDS SUMMARY | 2022-07-26 00:42 | XMS_ITS | Continuity of Care Document ---
Author Name Unknown Organization [facility] Primary [facility] e Cheng Address [address] [place] [address]- Care Team Providers Care Contractor General Building Name Role Phone Jermaine Sullivan Primary Care Physician Encounter [facility] Date(s): 04/27/22 - 05/27/22 [facility] Care Cheng [address] [place] [address]- Allergies, Adverse Reactions, Alerts No Known Allergies Immunizations Given and Recorded Vaccine Date Status Refusal Reason tetanus/diphtheria/pertussis, acel(Tdap) 12/02/21 Recorded Medications acetaminophen 325 mg oral capsule See Instructions, 2 tabs daily prn, 0 Refills, Maintenance, 12/27/21 16:49:00 EDT, Partial fill upon patient request if the prescription is for a schedule II opioid drug. Start Date: 12/27/21 Status: Ordered amLODIPine 10 mg oral tablet 1 tablet, By Mouth, Daily, # 90 tablet, 0 Refills, Maintenance, 02/08/22 10:10:00 [facility] #[id number], 175, cm, 12/28/21 14:37:00 EDT, Height Start Date: 02/08/22 Status: Ordered cetirizine 10 mg oral tablet 1 tablet, By Mouth, Daily, # 30 tablet, 0 Refills, Maintenance, 04/10/22 10:11:00 [facility] #[id number], 175, cm, 12/28/21 14:37:00 EDT, Height Start Date: 04/10/22 Status: Ordered Colace sodium 100 mg oral capsule 100 mg, 1, capsule, By Mouth, 2 times a day, PRN, # 20 capsule, Refills 0, Maintenance, for constipation, 05/23/21 15:25:00 EDT, Partial fill upon patient request if the prescription is for a schedule II opioid drug. Start Date: 05/23/21 Status: Ordered Disposable Liner/Shield/Pad/Undergarmet Disposable Liner/Shield/Pad/Undergarmet, See Instructions, # 156 each, Refills 5, Tot. Refills 5, Maintenance, R32, 05/19/22 17:00:00 EDT, Supply Start Date: 05/19/22 Status: Ordered ferrous sulfate 325 mg oral enteric coated tablet 325 mg, 1, tablet, By Mouth, Daily, # 90 tablet, Refills 3, Tot. Refills 3, Maintenance, 11/22/21 14:02:00 EDT, Route to Pharmacy Electronically, [facility] #[id number], Partial fill upon patient request if the prescription is for a schedule II o... Start Date: 11/22/21 Status: Ordered Glucosamine Chondroitin By Mouth, Daily, 0 Refills, Maintenance, 05/23/21 15:26:00 EDT, Partial fill upon patient request if the prescription is for a schedule II opioid drug. Start Date: 05/23/21 Status: Ordered Ibuprofen See Instructions, 400mg daily, Refills 0, Maintenance, 12/27/21 16:48:00 EDT, Instructions Replace Required Details, Partial fill upon patient request if the prescription is for a schedule II opioid drug. Start Date: 12/27/21 Status: Ordered Incontinence Underwear Incontinence Underwear, See Instructions, # 40 each, Refills 11, Tot. Refills 11, Maintenance, Use up to 8 per day. Size Large. DX: R39.81, 12/27/21 17:47:00 EDT, Supply, 175, cm, 12/27/21 16:54:00 EDT, Height Start Date: 12/27/21 Status: Ordered losartan 50 mg oral tablet 1 tablet, By Mouth, Daily, # 30 tablet, 3 Refills, Maintenance, 01/09/22 11:48:00 EST, [facility] #[id number], 175, cm, 12/28/21 14:37:00 EDT, Height Start Date: 01/09/22 Status: Ordered meclizine 25 mg oral tablet 1 tablet = 25 mg, By Mouth, 3 times a day, PRN for dizziness, # 30 tablet, 0 Refills, Maintenance, 05/23/21 15:24:00 EDT, Tablet, Partial fill upon patient request if the prescription is for a schedule II opioid drug. Start Date: 05/23/21 Status: Ordered Melatonin Daily at bedtime, 0 Refills, Maintenance, 05/23/21 15:24:00 EDT, Partial fill upon patient request if the prescription is for a schedule II opioid drug. Start Date: 05/23/21 Status: Ordered Protective Underwear/Pull-on, Large Protective Underwear/Pull-on, Large, See Instructions, # 160 each, Refills 5, Tot. Refills 5, Maintenance, 160 per month lifetime R32, 05/19/22 16:58:00 EDT, Supply Start Date: 05/19/22 Status: Ordered ROLLATOR ROLLATOR, See Instructions, # 1 each, Refills 0, Tot. Refills 0, Maintenance, DX: N17.10 HT: 5ft 10in WT: 214lbs, 06/03/21 14:25:00 EDT, Supply Start Date: 06/03/21 Status: Ordered Problem List Condition Confirmation Course Effective Dates Status H ealth Status Informant Bilateral leg edema Confirmed Active HLD (hyperlipidemia) Confirmed Active Hypertension Confirmed Active Obese class I Confirmed Active Knee osteoarthritis Confirmed Active Spinal stenosis Confirmed Active Urinary incontinence Confirmed Active Vertigo Confirmed Active Social History Social History Type Response Smoking Status Never (less than 100 in lifetime) entered on: 05/23/21 Sex Patient Care team information Care Team Personnel Name: Jermaine Sullivan Position: S PCO Associate Professional Member Role: PCP Address: Address: [address] [place] [address] [place] [address]- Care Team Related Persons Name: MANUEL BRIDGES Address: home [address] [place] [address] Name: MANUEL BRIDGES Address: home [address] [facility] [address] [place] [id number] Name: MANUEL BRIDGES Address: home [address] [place] [address] Name: DAYNA CÁRDENAS Address: [address] [place] [address] Name: DAYNA CÁRDENAS Address: home [address] [place] [address]
--- OUTSIDE RECORDS SUMMARY | 2022-07-26 00:42 | XMS_ITS | Continuity of Care Document ---
Author Name Unknown Organization [facility] Primary [facility] e Cheng Address [address] [place] [address]- Care Team Providers Care Welfare Service Aide Name Role Phone Jermaine Sullivan Primary Care Physician [phone] Encounter [facility] Date(s): 05/08/22 - 06/07/22 [facility] Care Cheng [address] [place] [address]- Allergies, Adverse Reactions, Alerts No Known Allergies [...] Daily, # 90 tablet, 0 Refills, Maintenance, 05/29/22 12:06:00 EDT, [facility] #[id number], 175, cm, 12/28/21 14:37:00 EDT, Height Start Date: 05/29/22 Status: Ordered cetirizine 10 mg oral tablet 1 tablet, By Mouth, Daily, # 30 tablet, 0 Refills, Maintenance, 04/10/22 10:11:00 EST, [facility] #[id number], 175, cm, 12/28/21 14:37:00 EDT, Height Start [...] 11/22/21 14:02:00 EDT, Route to Pharmacy Electronically, [facility] #[id number], Partial fill upon patient request if the [...] tablet, By Mouth, Daily, # 30 tablet, 2 Refills, Maintenance, 05/29/22 12:06:00 EDT, [facility] #[id number], 175, cm, 12/28/21 14:37:00 EDT, Height Start Date: 05/29/22 Status: Ordered meclizine 25 mg oral tablet [...] team information Care Team Personnel Name: Jermaine Slulivan Position: S PCO Associate Professional Member Role: PCP Address: Address: [address] [place] [address] [place] [address]- Care Team Related Persons Name: MANUEL BRIDGES Address: home [address] [facility] [address] [place] [id number] Name: MANUEL BRIDGES Address: home [address] [place] [address] Name: MANUEL BRIDGES Address: [address] [place] [address] Name: DAYNA CÁRDENAS Address: [address] [place] [address] Name: DAYNA CÁRDENAS Address: home [address] [place] [address]
--- OUTSIDE RECORDS SUMMARY | 2022-07-26 00:42 | XMS_ITS | Continuity of Care Document ---
Author Name Unknown Organization [facility] Primary Car e Cheng Address [address] [place] [address]- Care Team Providers Care Training Generalist Name Role Phone Jermaine Sullivan Primary Care Physician Encounter [facility] Date(s): 11/15/21 - 12/15/21 [facility] Care Cheng [address] [place] [address]- Allergies, Adverse Reactions, Alerts No Known Allergies Medications amLODIPine 10 mg oral tablet 1 tablet, By Mouth, Daily, # 90 tablet, 0 Refills, Maintenance, 11/11/21 14:50:00 EDT, [facility] #[id number], 175, cm, 08/04/21 16:06:00 EDT, Height Start Date: 11/11/21 Status: Ordered Colace sodium 100 mg oral capsule 100 mg, 1, capsule, By Mouth, 2 times a day, PRN, # 20 capsule, Refills 0, Maintenance, for constipation, 05/23/21 15:25:00 EDT, Partial fill upon patient request if the prescription is for a schedule II opioid drug. Start Date: 05/23/21 Status: Ordered Euflexxa Intra-articular, 0 Refills, Maintenance, 07/27/21 16:28:00 EDT, Partial fill upon patient request if the prescription is for a schedule II opioid drug. Start Date: 07/27/21 Status: Ordered ferrous sulfate 325 mg oral enteric coated tablet 325 mg, 1, tablet, By Mouth, Daily, # 90 tablet, Refills 3, Tot. Refills 3, Maintenance, 11/22/21 14:02:00 EDT, Route to Pharmacy Electronically, [facility] #[id number], Partial fill upon patient request if the prescription is for a schedule II o... Start Date: 11/22/21 Status: Ordered Glucosamine Chondroitin By Mouth, Daily, 0 Refills, Maintenance, 05/23/21 15:26:00 EDT, Partial fill upon patient request if the prescription is for a schedule II opioid drug. Start Date: 05/23/21 Status: Ordered Incontinence Underwear Incontinence Underwear, See Instructions, # 40 each, Refills 11, Tot. Refills 11, Maintenance, Use up to 8 per day. Size Large. DX: R39.81, 09/01/21 14:55:00 EDT, Supply, 175, cm, 08/04/21 16:06:00 EDT, Height Start Date: 09/01/21 Status: Ordered losartan 50 mg oral tablet 1 tablet, By Mouth, Daily, # 30 tablet, 0 Refills, Maintenance, 12/04/21 12:37:00 EDT, [facility] #[id number], 175, cm, 11/22/21 13:37:00 EDT, Height Start Date: 12/04/21 Status: Ordered meclizine 25 mg oral tablet [...] opioid drug. Start Date: 05/23/21 Status: Ordered ROLLATOR ROLLATOR, See Instructions, # 1 each, Refills 0, Tot. Refills 0, Maintenance, DX: N17.10 HT: 5ft 10in WT: 214lbs, 06/03/21 14:25:00 EDT, Supply Start Date: 06/03/21 Status: Ordered ZyrTEC 10 mg oral tablet 1 tablet = 10 mg, By Mouth, Daily, needs ov before future refills, # 30 tablet, 0 Refills, Maintenance, 11/11/21 8:31:00 EDT, Tablet, [facility] #[id number], Partial fill upon patient request ifthe prescription is for a schedule II opioid drug.,... Start Date: 11/11/21 Status: Ordered Problem List Condition Confirmation Course Effective Dates Status Health St [facility] Informant Hypertension Confirmed Active Obese class I Confirmed Active Urinary incontinence Confirmed Active Vertigo Confirmed Active Social History Social History Type Response Smoking Status Never (less than 100 in lifetime) entered on: 05/23/21 Sex Patient Care team information Personnel Name: Jermiane Sullivan Address: Address: [address] [place] [address] [place], [place] [address]
--- OUTSIDE RECORDS SUMMARY | 2022-07-26 00:42 | XMS_ITS | Continuity of Care Document ---
Author Name Unknown Organization [facility] ter Address [address] [place] [address]- Care Team Providers Care Talent Acquisition Sourcer Name Role Phone Jermaine Sullivan Primary [facility] Phys[id number] Date[facility] 11/25/[facility] - 12/25/[address] [address]- Attending Physician: Not on Staff, Attending MD Admitting Physician: Not on Staff, Admitting MD Referring Physician: Not on Staff, Referring MD Allergies, Adverse Reactions, Alerts No Known Allergies Medications amLODIPine 10 mg oral tablet 1 tablet, By Mouth, Daily, # 90 tablet, 0 Refills, Maintenance, 11/11/21 14:50:00 EDT, [facility] #[id number], 175, cm, 08/04/21 16:06:00 EDT, Height Start [...] 11/22/21 14:02:00 EDT, Route to Pharmacy Electronically, [facility] #[id number], Partial fill upon patient request if the [...] tablet, 0 Refills, Maintenance, 12/04/21 12:37:00 EDT, [facility] #[id number], 175, cm, 11/22/21 13:37:00 EDT, Height Start [...] 0 Refills, Maintenance, 11/11/21 8:31:00 EDT, Tablet, [facility] #[id number], Partial fill upon patient request ifthe prescription [...] Sex Patient Care team information Personnel Name: Jermaine Sullivan Address: Address: [address] [place] [address] [place] [address]
--- OUTSIDE RECORDS SUMMARY | 2022-07-26 00:42 | XMS_ITS | Continuity of Care Document ---
Author Name Unknown Organization [facility] Primary Car e Cheng Address [address] [place] [address]- Care Team Providers Care Publicity Director Name Role Phone Jermaine Sullivan Primary Care Physician [phone] Encounter [facility] Date(s): 11/18/21 - 12/18/21 [facility] Care Cheng [address] [place] [address]- Allergies, Adverse Reactions, Alerts No Known Allergies Medications amLODIPine 10 mg oral tablet 1 tablet, By Mouth, Daily, # 90 tablet, 0 Refills, Maintenance, 11/11/21 14:50:00 EDT, [facility] #[id number], 175, cm, 08/04/21 16:06:00 EDT, Height Start [...] 11/22/21 14:02:00 EDT, Route to Pharmacy Electronically, [facility] #[id number], Partial fill upon patient request if the [...] tablet, 0 Refills, Maintenance, 12/04/21 12:37:00 EDT, [facility] #[id number], 175, cm, 11/22/21 13:37:00 EDT, Height Start [...] 0 Refills, Maintenance, 11/11/21 8:31:00 EDT, Tablet, [facility] #[id number], Partial fill upon patient request ifthe prescription [...] information Personnel Name: Jermaine Sullivan Address: Address: [address] [place] [address] [place] [address]
--- OUTSIDE RECORDS SUMMARY | 2022-07-26 00:42 | XMS_ITS | Continuity of Care Document ---
Author Name Unknown Organization [facility] Primary [address] Address [address] [place] [address]- Care Team Providers Care Tape Duplicator Name Role Phone Jermaine Sullivan Primary Care Physician Encounter [facility] Date(s): 05/04/21 - 06/03/21 [facility] Care Cheng [address] [place], [place] [address] Allergies, Adverse Reactions, Alerts No Known Allergies Medications amLODIPine 10 mg oral tablet 10 mg, 1, tablet, By Mouth, Daily, # 30 tablet, Refills 0, Maintenance, 05/25/18 14:59:46 EDT Start Date: 05/25/18 Status: Ordered atorvastatin 40 mg oral tablet 1 tablet = 40 mg, By Mouth, Daily, # 30 tablet, 0 Refills, Maintenance, Tablet Start Date: 05/25/18 Status: Ordered losartan 50 mg oral tablet 50 mg, 1, tablet, By Mouth, Daily, # 30 tablet, Refills 0, Maintenance, 05/25/18 15:00:04 EDT Start Date: 05/25/18 Status: Ordered Problem List Condition Effective Dates Status Health Status Inform ant Hypertension(Confirmed) Active Obese class I(Confirmed) Active Vertigo(Confirmed) Active Vital Signs Most recent to oldest [Reference Range]: 1 Blood Pressure [90-138/55-84 mm Hg] 148/ 82mm Hg *H* (05/31/21 3:07 PM) Social History Social History Type Response Smoking Status Never (less than 100 in lifetime) entered on: 05/23/21 Sex
--- OUTSIDE RECORDS SUMMARY | 2022-07-26 00:42 | XMS_ITS | Continuity of Care Document ---
Author Name Unknown Organization [facility] Primary [facility] Address [address] [place] [address]- Care Team Providers Care Embroidery Designer Name Role Phone Not on Staff, PCP Primary Care Physician Unavail able Encounter [facility] Date(s): 04/19/21 - 05/19/21 [facility] Care Cheng [address] [place] [address]- Allergies, Adverse Reactions, Alerts No Known Allergies Medications amLODIPine 10 mg oral tablet 10 mg, 1, tablet, By Mouth, Daily, # 30 tablet, Refills 0, Maintenance, 05/25/18 14:59:46 EDT Start Date: 05/25/18 Status: Ordered atorvastatin 40 mg oral tablet 1 tablet = 40 mg, By Mouth, Daily, # 30 tablet, 0 Refills, Maintenance, Tablet Start Date: 05/25/18 Status: Ordered Iron 100 Plus 1 tablet, By Mouth, Daily, 0 Refills, Maintenance, 05/25/18 15:00:10 EDT Start Date: 05/25/18 Status: Ordered losartan 50 mg oral tablet 50 mg, 1, tablet, By Mouth, Daily, # 30 tablet, Refills 0, Maintenance, 05/25/18 15:00:04 EDT Start Date: 05/25/18 Status: Ordered ProAir HFA 90 mcg/inh inhalation aerosol with adapter 1, puffs, Inhalation, 2 times a day, PRN, # 1 each, Refills 0, Tot. Refills 0, Maintenance, 05/25/18 15:58:12 EDT, Aerosol, Route to Pharmacy Electronically, [id number], [facility]/pharmacy #[id number] Start Date: 05/25/18 Stop Date: 06/01/18 Status: Ordered
--- OUTSIDE RECORDS SUMMARY | 2022-07-26 00:42 | XMS_ITS | Continuity of Care Document ---
Author Name Unknown Organization [facility] Primary [facility] e [place] Address [address] [place] [address]- Care Team Providers Care Truck Car And Bus Cleaner Name Role Phone Jermaine Sullivan Primary Care Physician Encounter [facility] Date(s): 05/03/22 - 06/02/22 [facility] Care [place] [address] [place] [address]- Attending Physician: Oziel Kurtz Admitting Physician: AdmOziel hernandez Referring Physician: AdmtrOziel Allergies, Adverse Reactions, Alerts No Known Allergies [...] tablet, 0 Refills, Maintenance, 05/29/22 12:06:00 EDT, [facility] #[id number], 175, cm, 12/28/21 14:37:00 EDT, Height Start Date: 05/29/22 Status: Ordered cetirizine 10 mg oral tablet 1 tablet, By Mouth, Daily, # 30 tablet, 0 Refills, Maintenance, 04/10/22 10:11:00 EST, [facility] #[id number], 175, cm, 12/28/21 14:37:00 EDT, Height Start [...] 11/22/21 14:02:00 EDT, Route to Pharmacy Electronically, [facility] #[id number], Partial fill upon patient request if the [...] tablet, 2 Refills, Maintenance, 05/29/22 12:06:00 EDT, [facility] #[id number], 175, cm, 12/28/21 14:37:00 EDT, Height Start [...] 100 in lifetime) entered on: 05/23/21 Sex Hospital Consult note * Event Display: Inpatient Consult Note, Non-BH Authored Date: Note * Event Display: Non BH Lab Results Authored Date: * Event Display: Non BH Lab Results Authored Date: * Event Display: MRI Spine, Non- BH Authored Date: * Event Display: MRI Spine, Non- BH Authored Date: * Event Display: X-Ray Chest, Non- BH Authored Date: * Event Display: X-Ray Knee, Non- BH Authored Date: * Event Display: X-Ray Knee, Non- BH Authored Date: * Event Display: X-Ray Hip/Groin, Non- BH Authored Date: * Event Display: Non BH Lab Results Authored Date: * Event Display: X-Ray Knee, Non- BH Authored Date: * Event Display: Ultrasound Renal, Non BH Authored Date: * Event Display: Ultrasound Pelvis, Non-BH Authored Date: * Event Display: X-Ray Hand/Wrist, Non- BH Authored Date: * Event Display: Ultrasound Renal, Non BH Authored Date: * Event Display: Ultrasound Renal, Non BH Authored Date: * Event Display: CT Scan Abdomen, Non- BH Authored Date: * Event Display: CT Scan Abdomen, Non- BH Authored Date: * Event Display: X-Ray Spine, Non- BH Authored Date: * Event Display: X-Ray Abdomen, Non- BH Authored Date: CT Skeletal system Multisection for bone density * Event Display: Bone Density Authored Date: Patient Care team information Care Team Personnel Name: Jermaine Sullivan Position: S PCO Associate Professional Member Role: PCP Address: Address: [address] [place] [address] Care Team Related Persons Name: MANUEL BRIDGES Address: home [address] [place] [address] Name: MANUEL BRIDGES Address: home [address] [place] [address] Name: MANUEL BRIDGES Address: home [address] [place] [address] Name: DAYNA ÁCRDENAS Address: home [address] [place] [address] Name: DAYNA CÁRDENAS Address: home [address] [place] [address]
--- OUTSIDE RECORDS SUMMARY | 2022-07-26 00:42 | XMS_ITS | Continuity of Care Document ---
Author Name Unknown Organization [facility] [place] Address [address] [place] [address]- Care Team Providers Care Rocket Motor Tester Name Role Phone Jermaine Sullivan Primary Care Physician Encounter [facility] Date(s): 05/24/21 - 07/08/21 [facility] [address] [place] [address]- Attending Physician: Marco Mccoy MD Referring Physician: Jermaine Sullivan Allergies, Adverse Reactions, Alerts No Known Allergies Medications amLODIPine 10 mg oral tablet 10 mg, 1, tablet, By Mouth, Daily, # 30 tablet, Refills 0, Maintenance, 05/25/18 14:59:46 EDT Start Date: 05/25/18 Status: Ordered Problem List Condition Effective Dates Status Health Status Inform ant Hypertension(Confirmed) Active Obese class I(Confirmed) Active Vertigo(Confirmed) Active Social History Social History Type Response Smoking Status Never (less than 100 in lifetime) entered on: 05/23/21 Sex
--- OUTSIDE RECORDS SUMMARY | 2022-07-26 00:42 | XMS_ITS | Continuity of Care Document ---
Author Name Unknown Organization [facility] Primary Car e Cheng Address [address] [place] [address]- Care Team Providers Care Machine Staker Name Role Phone Jermaine Sullivan Primary Care Physician [phone] Encounter [facility] Date(s): 12/02/21 - 01/01/22 [facility] Care [place] [address] [place] [address]- Allergies, Adverse Reactions, Alerts No Known Allergies [...] tablet, 0 Refills, Maintenance, 11/11/21 14:50:00 EDT, [facility] #[id number], 175, cm, 08/04/21 16:06:00 EDT, Height Start Date: 11/11/21 Status: Ordered Colace sodium 100 mg oral capsule 100 mg, 1, capsule, By Mouth, 2 times a day, PRN, # 20 capsule, Refills 0, Maintenance, for constipation, 05/23/21 15:25:00 EDT, Partial fill upon patient request if the prescription is for a schedule II opioid drug. Start Date: 05/23/21 Status: Ordered ferrous sulfate 325 mg oral enteric coated tablet 325 mg, 1, tablet, By Mouth, Daily, # 90 tablet, Refills 3, Tot. Refills 3, Maintenance, 11/22/21 14:02:00 EDT, Route to Pharmacy Electronically, [facility] #[id number], Partial fill upon patient request if the [...] tablet, 0 Refills, Maintenance, 12/04/21 12:37:00 EDT, [facility] #[id number], 175, cm, 11/22/21 13:37:00 EDT, Height Start [...] 0 Refills, Maintenance, 11/11/21 8:31:00 EDT, [id number], Partial fill upon patient request ifthe prescription [...] information Personnel Name: Jermaine Sullivan Address: Address: [address] [place] [address] [place] [address]
--- OUTSIDE RECORDS SUMMARY | 2022-07-26 00:42 | XMS_ITS | Continuity of Care Document ---
Author Name Unknown Organization [facility] Primary Car e Cheng Address [address] [place] [address]- Care Team Providers Care Yarn Handler Name Role Phone Jermaine Sullivan Primary Care Physician Encounter [facility] Date(s): 11/17/21 - 12/17/21 [facility] Care [place] [address] [place] [address]- Allergies, Adverse Reactions, Alerts No Known Allergies Medications amLODIPine 10 mg oral tablet 1 tablet, By Mouth, Daily, # 90 tablet, 0 Refills, Maintenance, 11/11/21 14:50:00 EDT, [facility] #[id number], 175, cm, 08/04/21 16:06:00 EDT, Height Start [...] 11/22/21 14:02:00 EDT, Route to Pharmacy Electronically, [facility] #[id number], Partial fill upon patient request if the [...] tablet, 0 Refills, Maintenance, 12/04/21 12:37:00 EDT, [facility] #[id number], 175, cm, 11/22/21 13:37:00 EDT, Height Start [...] 0 Refills, Maintenance, 11/11/21 8:31:00 EDT, Tablet, [facility] #[id number], Partial fill upon patient request ifthe prescription [...] information Personnel Name: Jermaine Sullivan Address: Address: [address] [place] [address] [place] [address]
--- OUTSIDE RECORDS SUMMARY | 2022-07-26 00:42 | XMS_ITS | Continuity of Care Document ---
Author Name Unknown Organization [facility] Primary [facility] e Cheng Address [address] [place] [address]- Care Team Providers Care Soaker Hides Name Role Phone Jermaine Sullivan Primary Care Physician [phone] Encounter [facility] Date(s): 05/22/22 - 06/21/22 [facility] Care [place] [address] [place] [address]- Allergies, Adverse Reactions, Alerts No Known Allergies [...] tablet, 0 Refills, Maintenance, 05/29/22 12:06:00 EDT, [facility] #[id number], 175, cm, 12/28/21 14:37:00 EDT, Height Start Date: 05/29/22 Status: Ordered cetirizine 10 mg oral tablet 1 tablet, By Mouth, Daily, # 30 tablet, 0 Refills, Maintenance, 04/10/22 10:11:00 EST, [facility] #[id number], 175, cm, 12/28/21 14:37:00 EDT, Height Start [...] 11/22/21 14:02:00 EDT, Route to Pharmacy Electronically, [facility] #[id number], Partial fill upon patient request if the [...] tablet, 2 Refills, Maintenance, 05/29/22 12:06:00 EDT, [facility] #[id number], 175, cm, 12/28/21 14:37:00 EDT, Height Start [...] opioid drug. Start Date: 05/23/21 Status: Ordered MiraLax oral powder for reconstitution = 17 Gm, By Mouth, 2 times a day, dissolve in water or juice. May increase to 3 or more times a dayas needed for constipation, # 1,020 Gm, 5 Refills, Maintenance, 06/12/22 15:02:00 EDT, [facility] #[id number], Partial fill upon patient request... Start Date: 06/12/22 Stop Date: 12/09/22 Status: Ordered Protective Underwear/Pull-on, Large Protective Underwear/Pull-on, [...] Associate Professional Member Role: PCP Address: Address: [address] [place] [address] [place] [address]- Care Team Related Persons Name: MANUEL BRIDGES Address: home [address] [place] [address] Name: MANUEL BRIDGES Address: home [address] [place] [address] Name: MELIDAEDISONMORIS HOAM Address: home [address] [place] [address] Name: DAYNA CÁRDENAS Address: home [address] [place] [address] Name: DAYNA CÁRDENAS Address: home [address] [place] [address]
--- OUTSIDE RECORDS SUMMARY | 2022-07-26 00:42 | XMS_ITS | Continuity of Care Document ---
Author Name Unknown Organization [facility] Primary Car e [place] Address [address] [place] [address]- Care Team Providers Care Electronic Equipment Trades Worker Name Role Phone Jermaine Sullivan Primary Care Physician Encounter [facility] Date(s): 06/28/21 - 07/28/21 [facility] Care [place] [address] [place] [address]- Allergies, Adverse Reactions, Alerts No Known Allergies [...]
--- OUTSIDE RECORDS SUMMARY | 2022-07-26 00:42 | XMS_ITS | Continuity of Care Document ---
Author Name Unknown Organization [facility] Primary [facility] e Cheng Address [address] [place] [address]- Care Team Providers Care Alteration Worker Name Role Phone Jermaine Sullivan Primary Care Physician [phone] Encounter [facility] Date(s): 02/02/22 - 06/02/22 [facility] Care [place] [address] [place] [address]- Attending Physician: Jermaine Sullivan Allergies, Adverse Reactions, Alerts [...] tablet, 0 Refills, Maintenance, 05/29/22 12:06:00 EDT, [facility] #[id number], 175, cm, 12/28/21 14:37:00 EDT, Height Start Date: 05/29/22 Status: Ordered cetirizine 10 mg oral tablet 1 tablet, By Mouth, Daily, # 30 tablet, 0 Refills, Maintenance, 04/10/22 10:11:00 EST, [facility] #[id number], 175, cm, 12/28/21 14:37:00 EDT, Height Start [...] 11/22/21 14:02:00 EDT, Route to Pharmacy Electronically, [facility] #[id number], Partial fill upon patient request if the [...] tablet, 2 Refills, Maintenance, 05/29/22 12:06:00 EDT, [facility] #[id number], 175, cm, 12/28/21 14:37:00 EDT, Height Start [...] Associate Professional Member Role: PCP Address: Address: [address] [place] [address] [place] [address]- Care Team Related Persons Name: MANUEL BRIDGES Address: home [address] [place] [address] Name: MANUEL BRIDGES Address: home [address] [place] [address] Name: MANUEL BRIDGES Address: home [address] [place] [address] Name: DAYNA CÁRDENAS Address: home [address] [place] [address] Name: DAYNA CÁRDENAS Address: home [address] [place] [address]
--- OUTSIDE RECORDS SUMMARY | 2022-07-26 00:42 | XMS_ITS | Continuity of Care Document ---
Author Name Unknown Organization [facility] Primary Car e [place] Address [address] [place] [address]- Care Team Providers Care Cost Estimator Name Role Phone Jermaine Sullivan Primary Care Physician [phone] Encounter [facility] Date(s): 07/27/21 - 08/26/21 [facility] Care [place] [address] [place] [address]- Attending Physician: Oziel Kurtz Admitting Physician: Oziel Kurtz Referring Physician: AdmtrOziel Allergies, Adverse Reactions, Alerts [...]
--- OUTSIDE RECORDS SUMMARY | 2022-07-26 00:42 | XMS_ITS | Continuity of Care Document ---
Author Name Unknown Organization [facility] Address [address] [place] [address]- Care Team Providers Care Field Supervisor Name Role Phone Jermaine Sullivan Primary Care Physician Encounter [facility] Date(s): 08/04/21 - 09/03/21 [facility] [address] [place] [address]- Attending Physician: Oziel Kurtz Admitting Physician: AdmOziel hernandez Referring Physician: AdmtrOziel Allergies, Adverse Reactions, Alerts No Known Allergies Medications amLODIPine 10 mg oral tablet 10 mg, 1, tablet, By Mouth, Daily, # 30 tablet, Refills 0, Maintenance, 05/25/18 14:59:46 EDT Start Date: 05/25/18 Status: Ordered Problem List Condition Effective Dates Status Health Status Inform ant Hypertension(Confirmed) Active Obese class I(Confirmed) Active Urinary incontinence(Confirmed) Active Vertigo(Confirmed) Active Vital Signs Most recent to oldest [Reference Range]: 1 Blood Pressure [90-138/55-84 mm Hg] 130/ 78mm Hg (09/01/21 1:30 PM) Social History Social History Type Response Smoking Status Never (less than 100 in lifetime) entered on: 05/23/21 Sex
--- OUTSIDE RECORDS SUMMARY | 2022-07-26 00:42 | XMS_ITS | Continuity of Care Document ---
Author Name Unknown Organization [facility] Primary Car e Cheng Address [address] [place] [address]- Care Team Providers Care Spiral Binder Name Role Phone Jermaine Sullivan Primary Care Physician [phone] Encounter [facility] Date(s): 12/21/21 - 01/20/22 [facility] Care [place] [address] [place] [address]- Allergies, Adverse Reactions, Alerts No Known Allergies [...] tablet, 0 Refills, Maintenance, 11/11/21 14:50:00 EDT, [facility] #[id number], 175, cm, 08/04/21 16:06:00 EDT, Height Start Date: 11/11/21 Status: Ordered cetirizine 10 mg oral tablet 1 tablet, By Mouth, Daily, # 30 tablet, 0 Refills, Maintenance, 01/09/22 11:48:00 EST, [facility] #[id number], 175, cm, 12/28/21 14:37:00 EDT, Height Start Date: 01/09/22 Status: Ordered Colace sodium 100 mg oral [...] 11/22/21 14:02:00 EDT, Route to Pharmacy Electronically, [facility] #[id number], Partial fill upon patient request if the [...] tablet, 3 Refills, Maintenance, 01/09/22 11:48:00 EST, [facility] #[id number], 175, cm, 12/28/21 14:37:00 EDT, Height Start [...] Associate Professional Member Role: PCP Address: Address: [address] [place] [address] [place] [address]- Care Team Related Persons Name: MANUEL BRIDGES Address: home [address] [place] [address] Name: MANUEL BRIDGES Address: home [address] [place] [address] Name: MANUEL BRIDGES Address: home [address] [place] [address] Name: DAYNA CÁRDENAS Address: home [address] [place] [address] Name: DAYNA CÁRDENAS Address: home [address] [place] [address]
--- OUTSIDE RECORDS SUMMARY | 2022-07-26 00:42 | XMS_ITS | Continuity of Care Document ---
Author Name Unknown Organization [facility] Primary Car e Cheng Address [address] [place] [address]- Care Team Providers Care Senior Staff Specialized Employment Name Role Phone Jermaine Sullivan Primary Care Physician Encounter [facility] Date(s): 11/17/21 - 12/17/[address] [facility] Care [place] [address] [place] [address]- Allergies, Adverse Reactions, Alerts No Known Allergies Medications amLODIPine 10 mg oral tablet 1 tablet, By Mouth, Daily, # 90 tablet, 0 Refills, Maintenance, 11/11/21 14:50:00 EDT, [facility] #[id number], 175, cm, 08/04/21 16:06:00 EDT, Height Start [...] 11/22/21 14:02:00 EDT, Route to Pharmacy Electronically, [facility] #[id number], Partial fill upon patient request if the [...] tablet, 0 Refills, Maintenance, 12/04/21 12:37:00 EDT, [facility] #[id number], 175, cm, 11/22/21 13:37:00 EDT, Height Start [...] 0 Refills, Maintenance, 11/11/21 8:31:00 EDT, Tablet, [facility] #[id number], Partial fill upon patient request ifthe prescription [...] information Personnel Name: Jermaine Sullivan Address: Address: [address] [place] [address] [place] [address] [place]
--- OUTSIDE RECORDS SUMMARY | 2022-07-26 00:42 | XMS_ITS | Continuity of Care Document ---
Author Name Unknown Organization [facility] Primary [facility] e [place] Address [address] [place] [address]- Care Team Providers Care Patient Accounts Specialist Name Role Phone Jermaine Sullivan Primary Care Physician [phone] Encounter [facility] Date(s): 06/01/21 - 07/01/21 [facility] Care [place] [address] [place] [address]- Allergies, Adverse Reactions, Alerts No Known Allergies [...]
--- OUTSIDE RECORDS SUMMARY | 2022-07-26 00:42 | XMS_ITS | Continuity of Care Document ---
Author Name Unknown Organization [facility] Primary [facility] e Cheng Address [address] [place] [address]- Care Team Providers Care Architectural Drafter Name Role Phone Jermaine Sullivan Primary Care Physician Encounter [facility] Date(s): 05/31/22 - 06/30/22 [facility] Care [place] [address] [place] [address]- Allergies, Adverse Reactions, Alerts No Known Allergies [...] tablet, 0 Refills, Maintenance, 05/29/22 12:06:00 EDT, [facility] #[id number], 175, cm, 12/28/21 14:37:00 EDT, Height Start Date: 05/29/22 Status: Ordered cetirizine 10 mg oral tablet 1 tablet, By Mouth, Daily, # 30 tablet, 0 Refills, Maintenance, 04/10/22 10:11:00 EST, [facility] #[id number], 175, cm, 12/28/21 14:37:00 EDT, Height Start [...] 11/22/21 14:02:00 EDT, Route to Pharmacy Electronically, [facility] #[id number], Partial fill upon patient request if the [...] tablet, 2 Refills, Maintenance, 05/29/22 12:06:00 EDT, [facility] #[id number], 175, cm, 12/28/21 14:37:00 EDT, Height Start [...] Gm, 5 Refills, Maintenance, 06/12/22 15:02:00 EDT, [facility] #[id number], Partial fill upon patient request... Start Date: [...] Associate Professional Member Role: PCP Address: Address: [address] [place] [address] [place] [address]- Care Team Related Persons Name: MANUEL BRIDGES Address: home [address] [place] [address] Name: MANUEL BRIDGES Address: home [address] [place] [address] Name: MANUEL BRIDGES Address: home [address] [place] [address] Name: DAYNA CÁRDENAS Address: home [address] [place] [address] Name: DAYNA CÁRDENAS Address: home [address] [place] [address]
--- OUTSIDE RECORDS SUMMARY | 2022-07-26 00:42 | XMS_ITS | Continuity of Care Document ---
Author Name Unknown Organization [facility] [place] Address [address] [place] [address]- Care Team Providers Care Jewelry Designer Name Role Phone Jermaine Sulliavn Primary Care Physician Encounter [facility] Date(s): 07/14/21 - 08/20/21 [facility] [address] [place] [address]- Attending Physician: Darius CORDERO, Marco Hughes Allergies, Adverse Reactions, Alerts No Known Allergies [...]
--- OUTSIDE RECORDS SUMMARY | 2022-07-26 00:42 | XMS_ITS | Continuity of Care Document ---
Author Name Unknown Organization [facility] Primary [facility] e Cheng Address [address] [place] [address]- Care Team Providers Care Field Inspector Name Role Phone Jermaine Sullivan Primary Care Physician Encounter [facility] Date(s): 01/18/22 - 02/17/22 [facility] Care [place] [address] [place] [address]- Allergies, Adverse Reactions, Alerts No Known Allergies [...] 90 tablet, 0 Refills, Maintenance, 02/08/22 10:10:00 [facility] #[id number], 175, cm, 12/28/21 14:37:00 EDT, Height Start Date: 02/08/22 Status: Ordered cetirizine 10 mg oral tablet 1 tablet, By Mouth, Daily, # 30 tablet, 0 Refills, Maintenance, 02/08/22 10:10:00 [facility] #[id number], 175, cm, 12/28/21 14:37:00 EDT, Height Start Date: 02/08/22 Status: Ordered Colace sodium 100 mg oral [...] 11/22/21 14:02:00 EDT, Route to Pharmacy Electronically, [facility] #[id number], Partial fill upon patient request if the [...] tablet, 3 Refills, Maintenance, 01/09/22 11:48:00 EST, [facility] #57155, 175, cm, 12/28/21 14:37:00 EDT, Height Start [...] Care Team Personnel Name: Jermaine Sullivan Position: [facility] PCO Associate Professional Member Role: PCP Address: Address: [address] [place] [address]- Care Team Related Persons Name: MANUEL BRIDGES Address: home [address] [place] [address] Name: MANUEL BRIDGES Address: home [address] [facility] [address] [place] [address] Name: MANUEL BRIDGES Address: home [address] [place] [address] Name: DAYNA CÁRDENAS Address: [address] [place] [address] Name: DAYNA CÁRDENAS Address: home [address] [place] [address]
--- OUTSIDE RECORDS SUMMARY | 2022-07-26 00:42 | XMS_ITS | Continuity of Care Document ---
Author Name Unknown Organization [facility] Primary [facility] e [facility] Address [address] [place] [address]- Care Team Providers Care Certified Orthotist Practice Manager Name Role Phone Jermaine Sullivan Primary Care Physician Encounter [facility] Date(s): 11/16/21 - 12/16/21 [facility] Care [place] [address] [place] [address]- Allergies, Adverse Reactions, Alerts No Known Allergies Medications amLODIPine 10 mg oral tablet 1 tablet, By Mouth, Daily, # 90 tablet, 0 Refills, Maintenance, 11/11/21 14:50:00 EDT, [facility] #[id number], 175, cm, 08/04/21 16:06:00 EDT, Height Start [...] 11/22/21 14:02:00 EDT, Route to Pharmacy Electronically, [facility] #[id number], Partial fill upon patient request if the [...] tablet, 0 Refills, Maintenance, 12/04/21 12:37:00 EDT, [facility] #[id number], 175, cm, 11/22/21 13:37:00 EDT, Height Start [...] 0 Refills, Maintenance, 11/11/21 8:31:00 EDT, Tablet, [facility] #[id number], Partial fill upon patient request ifthe prescription [...] information Personnel Name: Jermaine Sullivan Address: Address: [address] [place] [address] [place] [address]
--- OUTSIDE RECORDS SUMMARY | 2022-07-26 00:42 | XMS_ITS | Continuity of Care Document ---
Author Name Unknown Organization [facility] Primary [facility] e [facility] Address [address] [place] [address]- Care Team Providers Care Music Publisher Name Role Phone Jermaine Sullivan Primary Care Physician [phone] Encounter [facility] Date(s): 04/26/22 - 05/26/22 [facility] Care [place] [address] [place] [address]- Allergies, Adverse Reactions, Alerts No Known Allergies [...] 90 tablet, 0 Refills, Maintenance, 02/08/22 10:10:00 [facility] #[id number], 175, cm, 12/28/21 14:37:00 EDT, Height Start Date: 02/08/22 Status: Ordered cetirizine 10 mg oral tablet 1 tablet, By Mouth, Daily, # 30 tablet, 0 Refills, Maintenance, 04/10/22 10:11:00 [facility] #[id number], 175, cm, 12/28/21 14:37:00 EDT, Height Start [...] 11/22/21 14:02:00 EDT, Route to Pharmacy Electronically, [facility] #[id number], Partial fill upon patient request if the [...] tablet, 3 Refills, Maintenance, 01/09/22 11:48:00 EST, [facility] #[id number], 175, cm, 12/28/21 14:37:00 EDT, Height Start [...] Associate Professional Member Role: PCP Address: Address: [address] [place] [address] [place] [address]- Care Team Related Persons Name: MANUEL BRIDGES Address: home [address] [place], [place] Name: MANUEL BRIDGES Address: home [address] [facility] [address] [place] [address] Name: MANUEL BRIDGES Address: [address] [place] [address] Name: DAYNA CÁRDENAS Address: [address] [place] [address] Name: DAYNA CÁRDENAS Address: home [address] [place] [address]
--- OUTSIDE RECORDS SUMMARY | 2022-07-26 00:42 | XMS_ITS | Continuity of Care Document ---
Author Name Unknown Organization [facility] Primary [facility] e [facility] Address [address] [place] [address]- Care Team Providers Care Enterprise Systems Administrator Name Role Phone Jermaine Sullivan Primary Care Physician Encounter [facility] Date(s): 06/21/22 - 07/21/22 [facility] Care Cheng [address] [place] [address]- Allergies, Adverse Reactions, Alerts No Known Allergies [...] tablet, 0 Refills, Maintenance, 05/29/22 12:06:00 EDT, [facility] #[id number], 175, cm, 12/28/21 14:37:00 EDT, Height Start Date: 05/29/22 Status: Ordered cetirizine 10 mg oral tablet 1 tablet, By Mouth, Daily, # 30 tablet, 0 Refills, Maintenance, 04/10/22 10:11:00 EST, [facility][id number], 175, cm, 12/28/21 14:37:00 EDT, Height Start [...] 11/22/21 14:02:00 EDT, Route to Pharmacy Electronically, [facility] #[id number], Partial fill upon patient request if the [...] tablet, 2 Refills, Maintenance, 05/29/22 12:06:00 EDT, [facility] #[id number], 175, cm, 12/28/21 14:37:00 EDT, Height Start [...] Gm, 5 Refills, Maintenance, 06/12/22 15:02:00 EDT, [facility] #[id number], Partial fill upon patient request... Start Date: [...] Associate Professional Member Role: PCP Address: Address: [address] [place] [address] [place] [address]- Care Team Related Persons Name: MANUEL BRIDGES Address: home [address] [place] [address] Name: MANUEL BRIDGES Address: home [address] [place] [address] Name: MANUEL BRIDGES Address: home [address] [place] [address] Name: DAYNA CÁRDENAS Address: home [address] [place] [address] Name: DAYNA CÁRDENAS Address: home [address] [place] [address]
--- OUTSIDE RECORDS SUMMARY | 2022-07-26 00:42 | XMS_ITS | Continuity of Care Document ---
Author Name Unknown Organization [facility] Primary [facility] e Cheng Address [address] [place] [address]- Care Team Providers Care Collet Gluer Name Role Phone Jermaine Sullivan Primary Care Physician Encounter [facility] Date(s): 11/17/21 - 12/23/21 [facility] Care Cheng [address] [place] [address]- Attending Physician: Jermaine Sullivan Allergies, Adverse Reactions, Alerts No Known Allergies Medications amLODIPine 10 mg oral tablet 1 tablet, By Mouth, Daily, # 90 tablet, 0 Refills, Maintenance, 11/11/21 14:50:00 EDT, [facility] #[id number], 175, cm, 08/04/21 16:06:00 EDT, Height Start [...] 11/22/21 14:02:00 EDT, Route to Pharmacy Electronically, [facility] #[id number], Partial fill upon patient request if the [...] tablet, 0 Refills, Maintenance, 12/04/21 12:37:00 EDT, [facility] #[id number], 175, cm, 11/22/21 13:37:00 EDT, Height Start [...] 0 Refills, Maintenance, 11/11/21 8:31:00 EDT, Tablet, [facility] #[id number], Partial fill upon patient request ifthe prescription [...] information Personnel Name: Jermaine Sullivan Address: Address: [address] [place] [address] [place] [address]
--- OUTSIDE RECORDS SUMMARY | 2022-07-26 00:42 | XMS_ITS | Continuity of Care Document ---
Author Name Unknown Organization [facility] Address [address] [place] [address]- Care Team Providers Care Pilot Steam Yacht Name Role Phone Jermaine Sullivan Primary Care Physician [place] [facility] Date(s): 06/12/22 - 07/12/22 [facility] [address] [place] [address]- Attending Physician: Oziel Kurtz Admitting Physician: Oziel Kurtz Referring Physician: Oziel Kurtz Allergies, Adverse Reactions, Alerts No Known Allergies [...] tablet, 0 Refills, Maintenance, 05/29/22 12:06:00 EDT, [facility] #[id number], 175, cm, 12/28/21 14:37:00 EDT, Height Start Date: 05/29/22 Status: Ordered cetirizine 10 mg oral tablet 1 tablet, By Mouth, Daily, # 30 tablet, 0 Refills, Maintenance, 04/10/22 10:11:00 EST, [facility] #[id number], 175, cm, 12/28/21 14:37:00 EDT, Height Start [...] 11/22/21 14:02:00 EDT, Route to Pharmacy Electronically, [facility] #[id number], Partial fill upon patient request if the [...] tablet, 2 Refills, Maintenance, 05/29/22 12:06:00 EDT, [facility] #[id number], 175, cm, 12/28/21 14:37:00 EDT, Height Start [...] Gm, 5 Refills, Maintenance, 06/12/22 15:02:00 EDT, [facility] #[id number], Partial fill upon patient request... Start Date: [...] Professional Member Role: PCP Address: Address: [address] [place] [address]- Care Team Related Persons Name: MANUEL BRIDGES Address: home [address] [place] [address] Name: MANUEL BRIDGES Address: home [address] [place] [address] Name: MANUEL BRIDGES Address: home [address] [place] [address] Name: DAYNA CÁRDENAS Address: [address] [place] [address] Name: DAYNA CÁRDENAS Address: home [address] [place] [address]
--- OUTSIDE RECORDS SUMMARY | 2022-07-26 00:42 | XMS_ITS | Continuity of Care Document ---
Author Name Unknown Organization [facility] Address [address] [place] [address]- Care Team Providers Care Manager Quality Compliance Name Role Phone Jermaine Sullivan Primary Care Physician [phone] Encounter 11/29/21 - 03/16/22 [facility] [address] [place] [address]- Discharge Disposition: CLIENT NO LONGER REQUIRES SKILLED CARE Allergies, Adverse Reactions, Alerts No Known Allergies [...] 90 tablet, 0 Refills, Maintenance, 02/08/22 10:10:00 [facility] #[id number], 175, cm, 12/28/21 14:37:00 EDT, Height Start Date: 02/08/22 Status: Ordered cetirizine 10 mg oral tablet 1 tablet, By Mouth, Daily, # 30 tablet, 0 Refills, Maintenance, 03/09/22 13:03:00 [facility] #[id number], 175, cm, 12/28/21 14:37:00 EDT, Height Start Date: 03/09/22 Status: Ordered Colace sodium 100 mg oral [...] 11/22/21 14:02:00 EDT, Route to Pharmacy Electronically, [facility] #[id number], Partial fill upon patient request if the [...] tablet, 3 Refills, Maintenance, 01/09/22 11:48:00 EST, [facility] #[id number], 175, cm, 12/28/21 14:37:00 EDT, Height Start [...] Care Team Personnel Name: Jermaine Sullivan Position: [facility] PCO Associate Professional Member Role: PCP Address: Address: [address] [place] [address]- Care Team Related Persons Name: MANUEL BRIDGES Address: home [address] [place] [address] Name: MANUEL BRIDGES Address: home [address] [place] [address] Name: MANUEL BRIDGES Address: home [address] [place] [address] Name: DAYNA CÁRDENAS Address: [address] [place] [address] Name: DAYNA CÁRDENAS Address: home [address] [place] [address]
--- OUTSIDE RECORDS SUMMARY | 2022-07-26 00:42 | XMS_ITS | Continuity of Care Document ---
Author Name Unknown Organization [facility] Primary [facility] [place] Address [address] [place] [address]- Care Team Providers Care Traction Power Engineer Name Role Phone Jermaine Sullivan Primary Care Physician [phone] Encounter [facility] Date(s): 11/22/21 - 12/22/21 [facility] Care [place] [address] [place] [address]- Attending Physician: Oziel Kurtz Admitting Physician: Admtr, Oziel Referring Physician: Admtr, Ar8 Allergies, Adverse Reactions, Alerts No Known Allergies Medications amLODIPine 10 mg oral tablet 1 tablet, By Mouth, Daily, # 90 tablet, 0 Refills, Maintenance, 11/11/21 14:50:00 EDT, [facility] #[id number], 175, cm, 08/04/21 16:06:00 EDT, Height Start [...] 11/22/21 14:02:00 EDT, Route to Pharmacy Electronically, [facility] #[id number], Partial fill upon patient request if the [...] tablet, 0 Refills, Maintenance, 12/04/21 12:37:00 EDT, [facility] #[id number], 175, cm, 11/22/21 13:37:00 EDT, Height Start [...] 0 Refills, Maintenance, 11/11/21 8:31:00 EDT, Tablet, [facility] #[id number], Partial fill upon patient request ifthe prescription [...] information Personnel Name: Jermaine Sullivan Address: Address: [address] [place] [address] [place] [address]
--- OUTSIDE RECORDS SUMMARY | 2022-07-26 00:42 | XMS_ITS | Continuity of Care Document ---
Author Name Unknown Organization [facility] Primary Car e [facility] Address [address] [place] [address]- Care Team Providers Care Body Builder Name Role Phone Jermaine Sullivan Primary Care Physician [phone] Encounter [facility] Date(s): 07/26/21 - 08/25/21 [facility] Care [place] [address] [place] [address]- Allergies, Adverse Reactions, Alerts No Known Allergies [...]
--- OUTSIDE RECORDS SUMMARY | 2022-07-26 00:42 | XMS_ITS | Continuity of Care Document ---
Author Name Unknown Organization [facility] Primary [facility] [place] Address [address] [place] [address]- Care Team Providers Care Hitcher Name Role Phone Jermaine Sullivan Primary Care Physician Encounter [facility] Date(s): 06/06/21 - 07/06/21 [facility] Care [place] [address] [place] [address]- Allergies, Adverse Reactions, Alerts No Known Allergies [...] Range]: 1 Blood Pressure [90-138/55-84 mm Hg] 138/ 82mm Hg (06/14/21 4:25 PM) Social History Social History Type Response Smoking Status Never (less than 100 in lifetime) entered on: 05/23/21 Sex
[2022-07-26 00:43] LABS: Alanine Aminotransferase 14 U/L (0-40); Albumin Level 3.4 g/dL (3.5-5.0); Alkaline Phosphatase 73 U/L (39-117); Anion Gap 11 (12-20); Aspartate Amino Transferase 19 U/L (5-37); Bilirubin Total 0.5 mg/dL (0.0-1.0); Blood Urea Nitrogen 22 mg/dL (9-16); Carbon Dioxide 27 mmol/L (22-29); Chloride 110 mmol/L (96-108); Creatinine Clr Calc Pharmacy 78.3; Estimated Glomerular Filt Rate > 60; Glucose Random 109 mg/dL (60-115); Magnesium 2.1 mg/dL (1.6-2.6); Potassium 3.7 mmol/L (3.3-5.1); Sodium 144 mmol/L (135-145)
--- OUTSIDE RECORDS SUMMARY | 2022-07-26 00:43 | XMS_ITS | Continuity of Care Document ---
Author Name Unknown Organization [facility] Primary [facility] e Cheng Address [address] [place] [address]- Care Team Providers Care Electrical Systems Drafter Name Role Phone Jermaine Sullivan Primary Care Physician [phone] Encounter [facility] Date(s): 11/15/21 - 12/15/21 [facility] Care Cheng [address] [place] [address]- Allergies, Adverse Reactions, Alerts No Known Allergies Medications amLODIPine 10 mg oral tablet 1 tablet, By Mouth, Daily, # 90 tablet, 0 Refills, Maintenance, 11/11/21 14:50:00 EDT, [facility] #[id number], 175, cm, 08/04/21 16:06:00 EDT, Height Start [...] 11/22/21 14:02:00 EDT, Route to Pharmacy Electronically, [facility] #[id number], Partial fill upon patient request if the [...] tablet, 0 Refills, Maintenance, 12/04/21 12:37:00 EDT, [facility] #[id number], 175, cm, 11/22/21 13:37:00 EDT, Height Start [...] 0 Refills, Maintenance, 11/11/21 8:31:00 EDT, Tablet, [facility] #[id number], Partial fill upon patient request ifthe prescription [...] information Personnel Name: Jermaine Sullivan Address: Address: [address] [place] [address] [place], [place] [address]
--- OUTSIDE RECORDS SUMMARY | 2022-07-26 00:43 | XMS_ITS | Continuity of Care Document ---
Author Name Unknown Organization [facility] [place] Address [address] [place] [address]- Care Team Providers Care Marketing Professor Name Role Phone Jermaine Sullivan Primary Care Physician [phone] Encounter [facility] Date(s): 07/14/21 - 08/27/21 [facility] Cheng [address] [place] [address]- Attending Physician: Darius CORDERO, Marco Hughes Allergies, [...]
--- OUTSIDE RECORDS SUMMARY | 2022-07-26 00:43 | XMS_ITS | Continuity of Care Document ---
Author Name Unknown Organization [facility] Primary Car e [facility] Address [address] [place] [address]- Care Team Providers Care Change Management Administrator Name Role Phone Jermaine Sullivan Primary Care Physician [phone] Encounter [facility] Date(s): 11/15/21 - 12/15/21 [facility] Care Cheng [address] [place] [address]- Allergies, Adverse Reactions, Alerts No Known Allergies Medications amLODIPine 10 mg oral tablet 1 tablet, By Mouth, Daily, # 90 tablet, 0 Refills, Maintenance, 11/11/21 14:50:00 EDT, [facility] #[id number], 175, cm, 08/04/21 16:06:00 EDT, Height Start [...] 11/22/21 14:02:00 EDT, Route to Pharmacy Electronically, [facility] #[id number], Partial fill upon patient request if the [...] tablet, 0 Refills, Maintenance, 12/04/21 12:37:00 EDT, [facility] #[id number], 175, cm, 11/22/21 13:37:00 EDT, Height Start [...] 0 Refills, Maintenance, 11/11/21 8:31:00 EDT, Tablet, [facility] #[id number], Partial fill upon patient request ifthe prescription [...] information Personnel Name: Jermaine Sullivan Address: Address: [address] [place] [address] [place] [address]
--- OUTSIDE RECORDS SUMMARY | 2022-07-26 00:43 | XMS_ITS | Continuity of Care Document ---
Author Name Unknown Organization [facility] Primary [facility] [place] Address [address] [place] [address]- Care Team Providers Care Manager Of Planning Name Role Phone Jermaine Sullivan Primary Care Physician Encounter [facility] Date(s): 05/23/21 - 08/26/21 [facility] Care [place] [address] [place] [address]- Attending Physician: Lionel CORDERO, Siobhan Hughes Allergies, Adverse Reactions, Alerts No Known [...]
[2022-07-26 00:49] LABS: Troponin-I High Sensitivity 9.6 ng/L (<3.5-35.0)
--- NOTE | 2022-07-26 00:59 | PC.NURSE ---
20g IV inserted to right AC
[2022-07-26] MEDS: iohexoL 350 MG/ML 100 ML INFUS..BTL 85 ML IV (01:32)
[2022-07-26 01:36] LABS: Folate 7.7 ng/mL (> or = 4.0); Vitamin B12 420 pg/mL (200-900)
[2022-07-26 02:07] VITALS: BP 155/83; PULSE 79; RESP 16; TEMP 36.8; O2SAT 94
--- NOTE | 2022-07-26 02:42 | MHC.EDTECH ---
Patient changed and cleaned
== END 2022-07-26 04:30 | disposition home or self-care (01) ==
PROVIDERS: Emergency Provider Internal Medicine; PCP Student in an Organized Health Care Education/Training Program
DX: S22.31XA Fracture of one rib, right side, initial encounter for closed fracture (principal); W10.8XXA Fall (on) (from) other stairs and steps, initial encounter; R53.1 Weakness; F03.90 Unspecified dementia, unspecified severity, without behavioral disturbance, psychotic disturbance, mood disturbance, and anxiety; I10 Essential (primary) hypertension; E78.5 Hyperlipidemia, unspecified; Z79.899 Other long term (current) drug therapy; Z79.02 Long term (current) use of antithrombotics/antiplatelets; Y93.9 Activity, unspecified; Y92.018 Other place in single-family (private) house as the place of occurrence of the external cause; Y99.9 Unspecified external cause status
CPT/HCPCS: 36415; 70450; 71260; 72125; 73552; 74177; 80053; 82607; 82746; 83735; 84443; 84484; 85025; 85610; 93005; 99284; 99285; Q9967

== ENCOUNTER 2022-11-15 12:28 | Observation (INO) | payer OTHER, SELFPAY ==
--- NOTE | ~2022-11-15 | CT_ITS ---
EXAMINATION: CT HEAD WITHOUT CONTRAST CLINICAL INFORMATION: Fall with altered mental status. COMPARISON: CT head 07/26/2022. TECHNIQUE: Contiguous axial imaging was performed from the skull base to vertex without intravenous administration of contrast. This CT examination was performed using dose optimization techniques as appropriate, variously including the following: *Automated exposure control *Adjustment of mA and/or kV according to patient size (this includes techniques or standardized protocols for targeted exams where dose is matched to indication/reason for exam; i.e. extremities or head) *Use of iterative reconstruction technique DLP: 868 mGy-cm FINDINGS: There is no acute intracranial hemorrhage or abnormal extra-axial collection. No intracranial mass effect or midline shift. Lateral and third ventricles are proportionate to the subarachnoid spaces. No hydrocephalus. Scattered nonspecific foci of hypoattenuation are visualized within the periventricular white matter that most likely represent a chronic manifestation of small vessel ischemia. Corley-white matter projection is otherwise preserved and there is no evidence of acute territorial infarct. The calvarium and skull base are intact. Mastoid air cells and middle ear cavities are well aerated. Mild paranasal sinus disease primarily affecting the ethmoid air cells. Globes and orbits are grossly symmetric. CT/CT head/brain wo IV con IMPRESSION: There are scattered chronic small vessel ischemic changes within the periventricular white matter. Otherwise unremarkable examination. No evidence of acute territorial infarct or hemorrhage.
--- NOTE | ~2022-11-15 | XR_ITS ---
Indication: Fall with shortness of breath EXAMINATION: Portable chest, right wrist and right elbow. Single view of the chest is compared to clinical laboratory technician film from CT dated 07/26/2022 and chest film dated 03/28/2021 There is no evidence of a displaced fracture. There is no pneumothorax. No effusion. The cardiac contour is comparable to previous. Some increasing bilateral basilar opacities may be atelectasis or infiltrate or possibly contusion given history. Tortuous versus ectatic arch with calcification. Paramediastinal density in the upper lung zone similar to previous. 4 views of the right wrist demonstrate probable old fracture deformity in the distal radius. Correlation recommended clinically. There is no convincing evidence for an acute fracture or dislocation. 3 views of the right elbow demonstrate some minimal incongruity and one view only involving the radial head toward the radial aspect. This may be degenerative in nature. Small fracture cannot be completely excluded XR/XR chest 1V IMPRESSION: Bilateral basilar opacities may be areas of atelectasis or infiltrate or possibly contusion given the history. There is no displaced fracture. No pneumothorax or effusion. No acute fracture or dislocation right wrist. Probable old fracture deformity distal radius. Correlation recommended clinically. As described on one view only there is minimal step-off of the radial head cortex contour toward the radial aspect. This could well be degenerative in nature. Underlying fracture cannot be completely excluded. No effusion is seen.
--- NOTE | ~2022-11-15 | XR_ITS ---
Indication: Fall with shortness of breath EXAMINATION: Portable chest, right wrist and right elbow. Single view of the chest is compared to manufacturer's service representative film from CT dated 07/26/2022 and chest film dated 03/28/2021 There is no evidence of a displaced fracture. There is no pneumothorax. No effusion. The cardiac contour is comparable to previous. Some increasing bilateral basilar opacities may be atelectasis or infiltrate or possibly contusion given history. Tortuous versus ectatic arch with calcification. Paramediastinal density in the upper lung zone similar to previous. 4 views of the right wrist demonstrate probable old fracture deformity in the distal radius. Correlation recommended clinically. There is no convincing evidence for an acute fracture or dislocation. 3 views of the right elbow demonstrate some minimal incongruity and one view only involving the radial head toward the radial aspect. This may be degenerative in nature. Small fracture cannot be completely excluded XR/XR wrist RT min 3V IMPRESSION: Bilateral basilar opacities may be areas of atelectasis or infiltrate or possibly contusion given the history. There is no displaced fracture. No pneumothorax or effusion. No acute fracture or dislocation right wrist. Probable old fracture deformity distal radius. Correlation recommended clinically. As described on one view only there is minimal step-off of the radial head cortex contour toward the radial aspect. This could well be degenerative in nature. Underlying fracture cannot be completely excluded. No effusion is seen.
--- NOTE | ~2022-11-15 | CT_ITS ---
EXAMINATION: CT CHEST WITH CONTRAST CLINICAL INFORMATION: Confusion and chest x-ray. Multiple falls. COMPARISON: Chest x-ray 11/15/2022 TECHNIQUE: Multidetector volumetric CT imaging of the chest was obtained after the administration of 50 mL of Omnipaque 350 intravenous contrast without immediate adverse reactions. Axial MIP volume rendering provided. Sagittal and coronal reformatted images were obtained. This CT examination was performed using dose optimization techniques as appropriate, variously including the following: *Automated exposure control *Adjustment of mA and/or kV according to patient size (this includes techniques or standardized protocols for targeted exams where dose is matched to indication/reason for exam; i.e. extremities or head) *Use of iterative reconstruction technique DLP: 496 mGy-cm FINDINGS: CREEL HAND: Well-expanded lungs. LUNGS: The lungs are well-expanded bilateral lower lobe compressive atelectasis and minimal bibasilar scarring. No consolidation, mass or contusion seen.. There is a 3 minute calcified nodule right upper lobe axial image 210/5. No additional noncalcified pulmonary nodules seen. MEDIASTINUM: The thyroid lobes are symmetrical and normal. Central trachea and the bronchi are widely patent. Heart size and the great vessels are normal caliber. There are small shotty pretracheal and precarinal lymph nodes. PLEURA: There is no pleural effusion. No pleural mass or thickening. AXILLA: No lymphadenopathy. UPPER ABDOMEN: Visualized liver, spleen, pancreas and bilateral adrenal glands are unremarkable. There there are bilateral upper pole renal cyst. No radiopaque gallstones seen.. OSSEOUS STRUCTURES: No aggressive lytic or sclerotic process seen. There is mild ventral spondylosis. CT/CT chest w IV con IMPRESSION: 1. Bilateral lower lobe compressive atelectasis and minimal bibasilar scarring. 2. There is a 3 mm calcified nodule right upper lobe. No noncalcified pulmonary nodules seen. 3. No abnormal mediastinal or axillary lymphadenopathy. 4. Bilateral upper pole renal cysts. Fleischner guidelines were followed.
--- NOTE | ~2022-11-15 | XR_ITS ---
Indication: Fall with shortness of breath EXAMINATION: Portable chest, right wrist and right elbow. Single view of the chest is compared to generating plant superintendent film from CT dated 07/26/2022 and chest film dated 03/28/2021 There is no evidence of a displaced fracture. There is no pneumothorax. No effusion. The cardiac contour is comparable to previous. Some increasing bilateral basilar opacities may be atelectasis or infiltrate or possibly contusion given history. Tortuous versus ectatic arch with calcification. Paramediastinal density in the upper lung zone similar to previous. 4 views of the right wrist demonstrate probable old fracture deformity in the distal radius. Correlation recommended clinically. There is no convincing evidence for an acute fracture or dislocation. 3 views of the right elbow demonstrate some minimal incongruity and one view only involving the radial head toward the radial aspect. This may be degenerative in nature. Small fracture cannot be completely excluded XR/XR elbow RT 2V IMPRESSION: Bilateral basilar opacities may be areas of atelectasis or infiltrate or possibly contusion given the history. There is no displaced fracture. No pneumothorax or effusion. No acute fracture or dislocation right wrist. Probable old fracture deformity distal radius. Correlation recommended clinically. As described on one view only there is minimal step-off of the radial head cortex contour toward the radial aspect. This could well be degenerative in nature. Underlying fracture cannot be completely excluded. No effusion is seen.
--- NOTE | 2022-11-15 12:41 | ECG_ITS ---
Test Reason : FALL Blood Pressure : / mmHG Vent. 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
[2022-11-15 12:51] VITALS: BP 157/86; BP 168/90; PULSE 63; PULSE 72; RESP 20; TEMP 36.7; O2SAT 96; O2SAT 97; BMI 32.2
--- NOTE | 2022-11-15 13:07 | ED.GENADULT ---
HPI - General Adult General Chief complaint: General Medical Stated complaint: SOB, INCR ALTERED S/P FALL /HEAD STRIKE T-1 Time Seen by Provider: 11/15/22 12:38 Source: patient and EMS Mode of arrival: EMS Limitations: no limitations History of Present Illness HPI narrative: This is a 77-year-old male history of hypertension, pituitary tumor, JAYASHREE on CPAP, anemia, GI bleed, hyperlipidemia presenting to the emergency department for evaluation of weakness, multiple falls within the past few weeks last fall this morning, according to family member who is at the bedside patient has been weak, falling frequently, yesterday had a fall that involved a head strike without loss of consciousness, since then patient has been altered according to family, slow to respond to questions and just has been acting differently. Daughter at the bedside reports patient has been having shortness of breath for a few months as well as a productive cough, no associated chest pain. Daughter reports he has been more weak than usual and this has also been worsening over the past few days. Daughter was used for interpretation. No fevers, chills, nausea, vomiting, abdominal pain, vision changes, dizziness Related Data Home Medications Medication Instructions Recorded Confirmed amlodipine 10 mg tablet 10 mg PO DAILY 03/28/21 atorvastatin 40 mg tablet 40 mg PO DAILY 03/28/21 cetirizine 10 mg tablet 10 mg PO DAILY PRN 03/28/21 Previous Rx's Medication Instructions Recorded cephalexin 500 mg capsule 500 mg PO TID 5 days #15 caps 12/02/21 ibuprofen 600 mg tablet 600 mg PO Q6H PRN fever or pain 07/26/22 #30 tabs albuterol sulfate 90 mcg/actuation 2 inh inhalation Q4-6H PRN 11/15/22 breath activated powder inhaler shortness of breath or wheezing #1 ea doxycycline hyclate 100 mg capsule 100 mg PO BID 10 days #20 caps 11/15/22 prednisone 20 mg tablet 20 mg PO DAILY 5 days #5 tabs 11/15/22 Allergies Allergy/AdvReac Type Severity Reaction Status Date / Time Seasonal Allergies Allergy Mild sneezing, Verified 03/28/21 16:22 watery eyes Review of Systems Review of Systems: Constitutional : No Weight loss, No Fever, No Chills, No Fatigue, No Malaise ENT/Mouth : No sore throat, No Rhinorrhea Eyes: No Eye Pain, No Swelling, No Redness Cardiovascular : No Chest Pain, + SOB, No Dyspnea on Exertion, No Orthopnea, No Edema, No Palpitations Respiratory : + Cough, + Sputum, No Wheezing Gastrointestinal : No Nausea, No Vomiting, No Diarrhea, No Constipation, No abdominal Pain, No Hematochezia, No Melena Genitourinary : No Dysuria, No Urinary Frequency, No Hematuria, Musculoskeletal : No joint pain, No Myalgias, No Joint Swelling Skin : No Skin Lesions, No rash Neuro : No Weakness, No Numbness, No Dizziness, No Headache Psych : No Anxiety/Panic, No Depression All other systems reviewed and are negative Yes all other systems are reviewed and are negative [facility] Past Medical History Attestation statement: The following information was validated with the patient. Source: old records reviewed and nursing notes reviewed Medical History GI bleed Hyperlipidemia Hypertension Seasonal allergies Social History Social History Alcohol intake: never Patient Tobacco Use Status: Never used Tobacco Advance Directives: Yes Advance Directives on File: No Physical Exam ED Vital Signs: Vital Signs - 24 hr 11/15/22 12:51 11/15/22 13:30 Temperature 98.0 F Pulse Rate 72 60 Respiratory Rate 20 16 Blood Pressure 157/86 H 135/82 Pulse Oximetry 97 93 Oxygen Delivery Method Room Air Room Air BMI result Body Mass Index 32.2 vss Appearance: Alert.? Oriented X3.? No acute distress.? Head: Normocephalic, atraumatic, no step-offs or deformities Eyes: Pupils equal, round and reactive to light.? Extraocular movements intact, pain-free. ENT: Pharynx normal.? Neck: Normal inspection.? Neck supple.? CVS: Normal heart rate and rhythm.? Pulses normal.? Respiratory: No respiratory distress.? Breath sounds normal.? Abdomen: Soft and nontender.? Skin: Skin warm and dry.? Normal skin color.? Normal skin turgor.? Extremities: No lower extremity edema.? No calf ttp. Global weakness. Neuro: Oriented X 3.? No motor deficit.? No sensory deficit. CN 2-12 intact . Normal [id number], negative Romberg and pronator drift GCS 15. NIH stroke scale 0. Course Reevaluation(s) Reevaluation #1: CBC appears to be around patient's baseline within normocytic anemia, chemistry no acute findings requiring intervention, troponin 19.2 a repeat troponin has been scheduled for 16:00, although low suspicion for ACS as patient does have a nonischemic EKG. Patient is noted to have an x-ray with bilateral basilar opacities which could be areas of atelectasis or infiltrate or possible contusion given the history based off this read of CT of the chest will be ordered for further evaluation. No fractures noted or pneumothorax. No acute fracture dislocation of the right wrist probable old fracture in the distal radius, daughter reports this is an old finding. As described there is a minimal step-off of the radial head cortex contoured towards the radial aspect of wrist likely degenerative, no point tenderness unlikely acute fracture. Patient moving all extremities without difficulty. CT of head no acute findings. Time: 14:26 Reevaluation #2: Daughter and patient refusing PT/CM patient has CCA at home. Time: 14:53 Reevaluation #3: Second troponin pending as well as repeat urine & Ct scan. Sign out to TIFFANIE Chang Time: 15:58 Medications Administered Discontinued Medications Generic Name Dose Route Start Last Admin Trade Name Freq PRN Reason Stop Dose Admin Iohexol 65 ml 11/15/22 15:47 11/15/22 15:48 Iohexol 350 Mg/Ml 100 Ml Infus..Btl IV 11/15/22 15:48 65 ml ONCE ONE Administration Medical Decision Making Medical Decision Making [facility] Narrative: 1305 77-year-old male presents status post multiple falls over the past few weeks, last fall morning, yesterday sustained a fall which included a head strike, no loss of consciousness. Not on blood thinners. Daughter reports increasing shortness of breath, cough, weakness, altered mental status. Physical examination essentially benign other than global weakness. NIH stroke scale 0. GCS 15 Will rule out intracranial hemorrhage. Unlikely posterior stroke, no signs of trauma to chest, abdomen, pelvis or neck. Will rule out metabolic derangements and urinary infection. No signs of elevated ICP. Other differentials include early dementia/Alzheimer's, gait instability, dehydration Plan labs, imaging, urine. Differential Diagnosis Differential Diagnoses: The differential diagnosis associated with the presentation includes Will rule out intracranial hemorrhage. Unlikely posterior stroke, no signs of trauma to chest, abdomen, pelvis or neck. Will rule out metabolic derangements and urinary infection. No signs of elevated ICP. Other differentials include early dementia/Alzheimer's, gait instability, dehydration Lab Data 11/15/22 13:09 11/15/22 13:09 Labs: Lab Results 11/15/22 Range/Units 13:09 WBC 5.3 (4.8-10.8) X10*3/uL RBC 4.10 L (4.60-5.80) X10*6/uL Hgb 11.4 L (14.0-18.0) g/dl Hct 35.0 L (42.0-52.0) % MCV 85.4 (80.0-98.0) fL MCH 27.8 (27.0-33.0) pg MCHC 32.6 (31.0-36.0) g/dl RDW 14.4 (11.0-16.0) % Plt Count 200 (160-400) X10*3/uL MPV 9.3 L (9.4-12.4) fL Immature Gran % (Auto) 0.4 (0.0-0.4) % Neut % (Auto) 62.8 (45-73) % Lymph % (Auto) 22.9 (20-40) % Gonzales % (Auto) 11.0 (2-11) % Eos % (Auto) 2.3 (0-4) % Baso % (Auto) 0.6 (0-2) % Lymph # (Auto) 1.2 (1.2-4.9) X10*3/uL Gonzales # (Auto) 0.6 (0.1-1.2) X10*3/uL Eos # (Auto) 0.1 (0.0-0.4) X10*3/uL Baso # (Auto) 0.0 (0.0-0.2) X10*3/uL Abs Immat Gran (auto) 0.02 (0.00-0.03) X10*3/uL Absolute Neuts (auto) 3.3 (2.0-8.3) x10*3/uL Absolute Nucleated RBC 0.000 (0.0-0.012) X10*3/uL Nucleated RBC % (auto) 0.0 (0.0-0.2) /100WBC Sodium 139 (135-145) mmol/L Potassium 3.9 (3.3-5.1) mmol/L Chloride 108 (96-108) mmol/L Carbon Dioxide 27 (22-29) mmol/L Anion Gap 8 L (12-20) BUN 17 H (9-16) mg/dL Creatinine 0.85 (0.5-1.4) mg/dL Estim Creat Clear Calc 87.0 Estimated GFR > 60 Random Glucose 97 (60-115) mg/dL Calcium 9.6 D (8.4-10.2) mg/dL Magnesium 2.2 (1.6-2.6) mg/dL Total Bilirubin 0.4 (0.0-1.0) mg/dL AST 14 (5-37) U/L ALT 7 (0-40) U/L Alkaline Phosphatase 78 (39-117) U/L Total Creatine Kinase 76 (38-174) U/L Troponin I High Sens 19.2 D (<3.5-35.0) ng/L B-Natriuretic Peptide 59 (<100) pg/mL Total Protein 6.7 (6.5-8.0) g/dL Albumin 3.7 (3.5-5.0) g/dL Critical Care Time Critical Care Time Critical Care Time: No Discharge Plan Discharge Clinical Impression: Frequent falls, Physical deconditioning, Bronchitis Patient Disposition: Home, Self-Care Additional Instructions: Take your medications as prescribed. If you were prescribed antibiotics today, it is important that you take your medication to their entirety, do not skip any doses, do not finish them early. Follow-up with your primary care provider this week. Return to the emergency department with new or worsening symptoms. Such as fevers, chills, chest pain, shortness of breath, nausea, vomiting, dizziness, headache, vision changes, lethargy In case of emergency call 911 Prescriptions: New doxycycline hyclate 100 mg capsule 100 mg PO BID 10 Days Qty: 20 0RF prednisone 20 mg tablet 20 mg PO DAILY 5 Days Qty: 5 0RF albuterol sulfate 90 mcg/actuation aerosol powdr breath activated 2 inh inhalation Q4-6H PRN (Reason: shortness of breath or wheezing) Qty: 1 0RF No Action cephalexin 500 mg capsule 500 mg PO TID 5 Days Qty: 15 0RF ibuprofen 600 mg tablet 600 mg PO Q6H PRN (Reason: fever or pain) Qty: 30 0RF amlodipine 10 mg tablet 10 mg PO DAILY atorvastatin 40 mg tablet 40 mg PO DAILY cetirizine 10 mg tablet 10 mg PO DAILY PRN
[2022-11-15 13:13] LABS: MANUAL DIFF FLAG NO
[2022-11-15 13:16] LABS: Basophils Percent Auto 0.6 % (0-2); Eosinophils Absolute Auto 0.1 X10*3/uL (0.0-0.4); Eosinophils Percent Auto 2.3 % (0-4); Hemoglobin 11.4 g/dl (14.0-18.0); Imm Gran Abs Auto 0.02 X10*3/uL (0.00-0.03); Imm Gran Pct Auto 0.4 % (0.0-0.4); Lymphocytes Absolute Auto 1.2 X10*3/uL (1.2-4.9); Lymphocytes Percent Auto 22.9 % (20-40); Mean Corpuscular HGB Conc 32.6 g/dl (31.0-36.0); Mean Corpuscular Hemoglobin 27.8 pg (27.0-33.0); Mean Corpuscular Volume 85.4 fL (80.0-98.0); Mean Platelet Volume 9.3 fL (9.4-12.4); Monocytes Absolute Auto 0.6 X10*3/uL (0.1-1.2); Neutrophils Absolute Auto 3.3 x10*3/uL (2.0-8.3); Neutrophils Percent Auto 62.8 % (45-73); Platelet Count 200 X10*3/uL (160-400); Red Cell Distribution Width 14.4 % (11.0-16.0); White Blood Count 5.3 X10*3/uL (4.8-10.8)
[2022-11-15 13:30] VITALS: BP 135/82; PULSE 60; RESP 16; O2SAT 93
[2022-11-15 13:38] LABS: Alanine Aminotransferase 7 U/L (0-40); Albumin Level 3.7 g/dL (3.5-5.0); Alkaline Phosphatase 78 U/L (39-117); Anion Gap 8 (12-20); Aspartate Amino Transferase 14 U/L (5-37); Bilirubin Total 0.4 mg/dL (0.0-1.0); Blood Urea Nitrogen 17 mg/dL (9-16); Calcium 9.6 mg/dL (8.4-10.2); Carbon Dioxide 27 mmol/L (22-29); Chloride 108 mmol/L (96-108); Estimated Glomerular Filt Rate > 60; Glucose Random 97 mg/dL (60-115); Magnesium 2.2 mg/dL (1.6-2.6); Potassium 3.9 mmol/L (3.3-5.1); Sodium 139 mmol/L (135-145); Total Protein 6.7 g/dL (6.5-8.0)
[2022-11-15 13:42] LABS: B Type Natriuretic Peptide 59 pg/mL (<100)
[2022-11-15 13:44] LABS: Troponin-I High Sensitivity 19.2 ng/L (<3.5-35.0)
[2022-11-15] MEDS: iohexoL 350 MG/ML 100 ML INFUS..BTL 65 ML IV (15:48)
[2022-11-15 15:56] VITALS: BP 137/86; PULSE 61; RESP 14; O2SAT 93
--- NOTE | 2022-11-15 16:10 | PC.NURSE ---
assumed care of patient at 1500, per daughter, patient is becoming increasingly more lethargic. IV fluids initiated on patient, condom cath placed on patient due to incontinence. Per patient and daughter, they do not want a straight cath. Pt has perked up a bit more, talking with this RN and daughter. Patient was able to self reposition with assistance
[2022-11-15 16:30] VITALS: RESP 17
[2022-11-15 16:34] LABS: COVID-19 Test Negative (Negative); IDNOW Serial# BCCEAD1C
[2022-11-15 17:09] LABS: Appearance Urine Clear; Color Urine Yellow; Glucose Urine UA Negative (Negative); Leukocyte Esterase Urine Negative (Negative); Nitrite Urine Negative (Negative); PH 7.5 (5.0-9.0); Urine Blood Negative (Negative); Urine Ketones Negative (Negative); Urine Protein Negative (Neg-Trace)
--- NOTE | 2022-11-15 17:19 | PC.NURSE ---
Pt changed due to soiled linens, patient was able to lift self up to put pants on. Pt appears more oriented now and offers no complaints to this RN. Pt requiring 2L NC O2 to maintain above 95%
--- NOTE | 2022-11-15 19:41 | PHA.MEDREC ---
Addendum entered by Mesha Rowell RPh 11/15/22 19:57: Patient's daughter arrived. Reported all medications. Reports taking amlodipine 5 mg, dose was decrease when losartan dose was increased. Original Note: Pharmacy Consult ? Medication Reconciliation Pharmacy has completed the medication reconciliation. Patient altered, called daughter with no answer. [employer] claim history and called pharmacy to confirm. Patient last filled amlodipine 06/01/22 therefore I removed for med list. Only recently medication is losartan. Mesha Rowell, PharmD
--- NOTE | 2022-11-15 20:37 | PM.IMHP ---
History of Present Illness Date of Service: 11/15/22 <DIANA Allan - Last Filed: 11/15/22 23:16> Attending physician on admission: Isatu Ocampo <DIANA Allan - Last Filed: 11/15/22 23:16> Chief Complaint: Multiple falls, generalized weakness, AMS <DIANA Allan - Last Filed: 11/15/22 23:16> Pt is a 77-year-old male with a PMH significant for?HTN, pituitary tumor, JAYASHREE on CPAP, and hx of GI bleed who presents to the ED for evaluation generalized weakness, multiple falls, and altered mental status. ?Patient is accompanied by his daughter provides most of the detailed HPI. Patient himself is alert but lethargic, slow to respond, get answers appropriately. Patient is somnolent at times but easily arousable but drifts in and out of sleep. Patient's daughter states that he has fallen 5 times in the past 7 days, twice with headstrikes including one with a small bleeding laceration to back of his skull yesterday. Pt had two falls earlier today and was evaluated by home PT who advised to come to the ED for further evaluation. Daughter notes one fall in particular seemed seizure-like : Patient fell in the kitchen and was nonresponsive but patient still had his eyes open, his hands clenched ?like claws?, and his face like a ?rictus . Has occasionally acted confused during this time. He has also has been experiencing increased shortness of breath and productive cough for the past 2 days. Daughter notes patient has always been very active both physically and mentally. Has been declining some during the past 3-4 years, but has markedly and sharply declined in the past 7 days. Of note, patient has been monitored for the past 15 years for a known pituitary tumor. Patient is not currently followed by Neurology, though has an order for an outpatient MRI for Parkinson's and dementia workup by PCP. Patient is also on a waiting list to see outpatient Neurology at [facility], though will not be seen for many months. In the ED patient was afebrile and slightly hypertensive up to 157/86, satting at 93% on RA. Labs were significant for stable normocytic anemia of 11.4/35.0, initial troponin 19.2 with repeat flat at 16.0. Electrolytes WNL. Renal function baseline. Hepatic function baseline. UA negative for UTI. Patient tested negative for COVID. CXR showed bilateral basilar opacities that may be areas of atelectasis or infiltrate or possibly contusion. No pneumothorax, effusion, or displaced fracture. X-ray of right wrist found no acute fracture or dislocation, but showed a probable old fracture deformity of distal radius. Also found minimal step-off of the radial head cortex toward the radial aspect that could be degenerative in nature but in underlying fracture cannot be completely excluded. CT of head found scattered chronic small vessel ischemia changes within the periventricular white matter but no evidence of acute territorial infarct or hemorrhage. CT of chest found bilateral lower lobe compressive atelectasis and minimal bibasilar scarring with a 3 mm calcified nodule of the right upper lobe. ?EKG demonstrated sinus rhythm with first-degree AV block and no evidence of ST elevations or depressions. Pt will be admitted to the hospital under observation for further evaluation of generalized weakness and altered mental status. <DIANA Allan - Last Filed: 11/15/22 23:16> Review of Systems Review of Systems: Frequent falls at home x7 days Lethargy Confusion Shortness of breath, productive cough x2 days Denies chest pain/pressure, palpitations No fever, chills, nausea, vomiting, abdominal pain <DIANA Allan - Last Filed: 11/15/22 23:16> [facility] Medical History: Medical History Seasonal allergies Hyperlipidemia Hypertension GI bleed <DIANA Allan - Last Filed: 11/15/22 23:16> Social History: Social History Alcohol intake: current Alcohol intake frequency: holidays/special occasions only Patient Tobacco Use Status: Never used Tobacco Smoked in Last 30 Days: No Use of substances other than those prescribed or required for medical reasons: No Advance Directives: Yes Advance Directives on File: No Advance Directives Date on File: 11/16/22 Nutrition Risks: No Nutritional Risk <DIANA Allan Last Filed: 11/15/22 23:16> Meds Allergies/Adverse reactions: Allergies Allergy/AdvReac Type Severity Reaction Status Date / Time Seasonal Allergies Allergy Mild sneezing, Verified 03/28/21 16:22 watery eyes <DIANA Allan - Last Filed: 11/15/22 23:16> Active Medications: Current Medications Acetaminophen (Acetaminophen 325 Mg Tablet) 650 mg PO Q6H PRN PRN Reason: Pain, Mild (Pain Scale 1-3) Enoxaparin Sodium (Enoxaparin Sodium 40 Mg/0.4 Ml Syringe) 40 mg SUBCUT Q24H LISA Melatonin (Melatonin 3 Mg Tablet) 6 mg PO BEDTIME PRN PRN Reason: Insomnia Ondansetron HCl (Ondansetron Hcl 4 Mg/2 Ml Vial) 4 mg IVPUSH Q8H PRN PRN Reason: Nausea and Vomiting Sodium Chloride (0.9 % Sodium Chloride Flush 3 Ml Syringe) 3 ml IVFLUSH QSHIFT LISA <DIANA Allan - Last Filed: 11/15/22 23:16> Home medications: Home Medications Medication Instructions Recorded Confirmed Last Taken Type amlodipine 5 mg tablet 5 mg PO BEDTIME 11/15/22 11/15/22 11/14/22 History ascorbic acid (vitamin C) 500 mg 500 mg PO DAILY 11/15/22 11/15/22 11/15/22 History tablet cholecalciferol (vitamin D3) 25 25 mcg PO DAILY 11/15/22 11/15/22 11/15/22 History mcg (1,000 unit) tablet cyanocobalamin (vitamin B-12) 1,000 mcg PO DAILY 11/15/22 11/15/22 11/15/22 History 1,000 mcg tablet ferrous sulfate 324 mg (65 mg 324 mg PO BEDTIME 11/15/22 11/15/22 11/14/22 History iron) tablet,delayed release losartan 100 mg tablet 100 mg PO DAILY 11/15/22 11/15/22 11/15/22 History <DIANA Allan - Last Filed: 11/15/22 23:16> Physical Exam Vital Signs and Narrative: Vital Signs: Last Vital Signs Temp 98.0 F 11/15/22 12:51 Pulse 61 11/15/22 15:56 Resp 17 11/15/22 16:30 BP 137/86 11/15/22 15:56 Pulse Ox 93 11/15/22 15:56 O2 Del Method Room Air 11/15/22 15:56 BMI result Body Mass Index 32.2 <DIANA Allan - Last Filed: 11/15/22 23:16> Constitutional: Alert, somnolent but arousable. Lethargic, slow to respond but answers appropriately, in no acute distress. Mental Status: Oriented to person, place and time. Eyes: Pupils are equal, round, and reactive to light. Ear, Nose, and Throat: Oropharynx clear, mucous membranes moist. Ears and nose without deformities. Trachea midline. Respiratory: Clear to auscultation bilaterally. No wheezing, rales, or rhonchi. Cardiovascular: S1, S2 regular. No murmurs, rubs, or gallops. Gastrointestinal: Abdomen soft, non-tender, non-distended. Normal bowel sounds. Neurologic: Cranial nerves II-XII are grossly intact bilaterally. No focal neurological deficits. Moves all extremities spontaneously. Skin: Dry, warm. Musculoskeletal: No cyanosis or clubbing. Extremities: Non pitting bilateral edema. <DIANA Allan - Last Filed: 11/15/22 23:16> Results Labs CBC and Chem 7: 11/15/22 13:09 11/15/22 13:09 <DIANA Allan - Last Filed: 11/15/22 23:16> Labs: Laboratory Results - last 24 hr 11/15/22 11/15/22 11/15/22 13:09 15:52 16:58 MCV 85.4 MCH 27.8 MCHC 32.6 RDW 14.4 Plt Count 200 MPV 9.3 L Immature Gran % (Auto) 0.4 Neut % (Auto) 62.8 Lymph % (Auto) 22.9 [place] % (Auto) 11.0 Eos % (Auto) 2.3 Baso % (Auto) 0.6 Lymph # (Auto) 1.2 [place] # (Auto) 0.6 Eos # (Auto) 0.1 Baso # (Auto) 0.0 Abs Immat Gran (auto) 0.02 Absolute Neuts (auto) 3.3 Absolute Nucleated RBC 0.000 Nucleated RBC % (auto) 0.0 Anion Gap 8 L Estim Creat Clear Calc 87.0 Estimated GFR > 60 Random Glucose 97 Calcium 9.6 D Magnesium 2.2 Total Bilirubin 0.4 AST 14 ALT 7 Alkaline Phosphatase 78 Total Creatine Kinase 76 B-Natriuretic Peptide 59 Total Protein 6.7 Albumin 3.7 Urine Color Yellow Urine Appearance Clear Urine pH 7.5 Ur Specific [place] 1.020 Urine Protein Negative Urine Glucose (UA) Negative Urine Ketones Negative Urine Blood Negative Urine Nitrite Negative Ur Leukocyte Esterase Negative COVID-19 (TINA) Negative COVID-19 Clin Com See Note <DIANA Allan - Last Filed: 11/15/22 23:16> Imaging Radiologist's Impressions: Impressions Chest X-Ray 11/15/22 13:47 IMPRESSION: Bilateral basilar opacities may be areas of atelectasis or infiltrate or possibly contusion given the history. There is no displaced fracture. No pneumothorax or effusion. No acute fracture or dislocation right wrist. Probable old fracture deformity distal radius. Correlation recommended clinically. As described on one view only there is minimal step-off of the radial head cortex contour toward the radial aspect. This could well be degenerative in nature. Underlying fracture cannot be completely excluded. No effusion is seen. Elbow X-Ray 11/15/22 13:47 IMPRESSION: Bilateral basilar opacities may be areas of atelectasis or infiltrate or possibly contusion given the history. There is no displaced fracture. No pneumothorax or effusion. No acute fracture or dislocation right wrist. Probable old fracture deformity distal radius. Correlation recommended clinically. As described on one view only there is minimal step-off of the radial head cortex contour toward the radial aspect. This could well be degenerative in nature. Underlying fracture cannot be completely excluded. No effusion is seen. Wrist X-Ray 11/15/22 13:47 IMPRESSION: Bilateral basilar opacities may be areas of atelectasis or infiltrate or possibly contusion given the history. There is no displaced fracture. No pneumothorax or effusion. No acute fracture or dislocation right wrist. Probable old fracture deformity distal radius. Correlation recommended clinically. As described on one view only there is minimal step-off of the radial head cortex contour toward the radial aspect. This could well be degenerative in nature. Underlying fracture cannot be completely excluded. No effusion is seen. Head CT 11/15/22 13:53 IMPRESSION: There are scattered chronic small vessel ischemic changes within the periventricular white matter. Otherwise unremarkable examination. No evidence of acute territorial infarct or hemorrhage. Chest CT 11/15/22 16:02 IMPRESSION: 1. Bilateral lower lobe compressive atelectasis and minimal bibasilar scarring. 2. There is a 3 mm calcified nodule right upper lobe. No noncalcified pulmonary nodules seen. 3. No abnormal mediastinal or axillary lymphadenopathy. 4. Bilateral upper pole renal cysts. Fleischner guidelines were followed. <DIANA Allan - Last Filed: 11/15/22 23:16> Assessment and Plan (1) Physical deconditioning: Status: Acute <DIANA Allan - Last Filed: 11/15/22 23:16> (2) Frequent falls: Status: Acute <DIANA Allan - Last Filed: 11/15/22 23:16> (3) Generalized weakness: Status: Acute <DIANA Allan - Last Filed: 11/15/22 23:16> is a 77-year-old male with a PMH significant for?HTN, pituitary tumor, JAYASHREE on CPAP, and hx of GI bleed who presents to the ED for evaluation generalized weakness, multiple falls, and altered mental status. ?Pt will be admitted to the hospital under observation for further evaluation of generalized weakness with frequent falls. Generalized weakness with frequent falls Has been ongoing for past 7 days Etiology unclear: Neurologic versus cardiac No clear infectious source: No leukocytosis, CT of chest negative for infiltrate, UA negative for UTI CT of head negative for acute territorial infarct or hemorrhage Neurology consult PT evaluation Monitor on telemetry HTN Continue losartan, amlodipine Normocytic anemia H&H 11.4/35.0, stable at baseline Continue ferrous sulfate Follow CBC JAYASHREE CPAP at night Full Code Attending:?Dr. Ocampo DVT Prophylaxis: Lovenox Patient admitted to the hospital under observation on telemetry for further evaluation of generalized weakness with frequent falls with close monitoring and specialist consultation. <DIANA Allan - Last Filed: 11/15/22 23:16> is a 77-year-old male with a PMH significant for?HTN, pituitary tumor, JAYASHREE on CPAP, and hx of GI bleed who presents to the ED for evaluation generalized weakness, multiple falls, and altered mental status. ?Pt will be admitted to the hospital under observation for further evaluation of generalized weakness with frequent falls. Generalized weakness with frequent falls Has been ongoing for past 7 days Etiology unclear: Neurologic versus deconditioning No clear infectious source: No leukocytosis, CT of chest negative for infiltrate, UA negative for UTI CT of head negative for acute territorial infarct or hemorrhage Neurology consult. TSH Vit B12 pending PT evaluation Monitor on telemetry HTN Continue losartan, amlodipine Normocytic anemia H&H 11.4/35.0, stable at baseline Continue ferrous sulfate Follow CBC JAYASHREE CPAP at night Full Code Attending:?Dr. Ocampo DVT Prophylaxis: Anikax Patient admitted to the hospital under observation on telemetry for further evaluation of generalized weakness with frequent falls with close monitoring and specialist consultation. <Isatu Ocampo MD - Last Filed: 11/16/22 00:44> Time Spent With Patient Time: Total time managing care of this patient today ____ minutes. <DIANA Allan - Last Filed: 11/15/22 23:16> Quality Stroke Does the patient have a stroke diagnosis?: No <DIANA Allan - Last Filed: 11/15/22 23:16> VTE Prior VTE?: No <DIANA Allan - Last Filed: 11/15/22 23:16> VTE Risk Level:: Medical - moderate - high <DIANA Allan - Last Filed: 11/15/22 23:16> VTE Device Contraindication: Treatment Not Indicated <DIANA Allan - Last Filed: 11/15/22 23:16> VTE Drug Contraindication: N/A - Med Ordered <DIANA Allan - Last Filed: 11/15/22 23:16>
[2022-11-15 20:48] LABS: Ammonia 27 umol/L (13-55)
[2022-11-15 21:15] LABS: Thyroid Stimulating Hormone 1.71 uIU/mL (0.32-4.0)
[2022-11-15 21:22] LABS: Vitamin B12 509 pg/mL (200-900)
[2022-11-15 23:38] VITALS: PULSE 60; O2SAT 94
[2022-11-16] VITALS: BP 154/82; PULSE 56; RESP 18; TEMP 36.4; O2SAT 97
[2022-11-16] MEDS: 0.9 % Sodium Chloride Flush 3 ML SYRINGE IVFLUSH ×2 (00:47→10:18)
[2022-11-16 03:06] VITALS: BP 167/73; PULSE 61; RESP 20; TEMP 36.4; O2SAT 99
[2022-11-16 06:40] VITALS: BMI 31.6
[2022-11-16 08:00] VITALS: BP 162/89; PULSE 62; RESP 20; TEMP 37.1; O2SAT 95
[2022-11-16 08:05] LABS: Alanine Aminotransferase 7 U/L (0-40); Albumin Level 3.5 g/dL (3.5-5.0); Alkaline Phosphatase 79 U/L (39-117); Anion Gap 10 (12-20); Aspartate Amino Transferase 12 U/L (5-37); Bilirubin Total 0.4 mg/dL (0.0-1.0); Blood Urea Nitrogen 11 mg/dL (9-16); Calcium 9.3 mg/dL (8.4-10.2); Carbon Dioxide 26 mmol/L (22-29); Chloride 109 mmol/L (96-108); Creatinine Clr Calc Pharmacy 96.4; Estimated Glomerular Filt Rate > 60; Glucose Random 90 mg/dL (60-115); Potassium 4.2 mmol/L (3.3-5.1); Sodium 141 mmol/L (135-145); Total Protein 6.5 g/dL (6.5-8.0)
[2022-11-16 08:35] LABS: TSH reflex Free T4 1.68 uIU/mL (0.32-4.0)
[2022-11-16 08:41] LABS: Folate 6.5 ng/mL (> or = 4.0); Vitamin B12 443 pg/mL (200-900)
[2022-11-16] MEDS: Cyanocobalamin (Vitamin B-12) 1,000 MCG TABLET 1000 MCG PO (10:16)
[2022-11-16] MEDS: Cholecalciferol (Vitamin D3) 25 MCG TABLET PO (10:17)
[2022-11-16] MEDS: Losartan Potassium 50 MG TABLET 100 MG PO (10:17)
[2022-11-16] MEDS: Ascorbic Acid 500 MG TABLET PO (10:17)
[2022-11-16] MEDS: Acetaminophen 325 MG TABLET 650 MG PO (10:18)
--- NOTE | 2022-11-16 11:49 | MHC.SL.SWA ---
Speech Pathologist Impression: Risk of Aspiration Due to: Reduced Cognition Dysphasia Diet Status: All aspects of swallow WFL Liquid Consistency and Strategies for Safe Swallow: Liquid Intake Recommendation: Thin Liquid Intake Strategies: Solid Food Consistency: Dietary Recommendations: Regular Additional Modifications to Solid Foods: Due to mild confusion, patient will need some supervision at the start of meal to assure that all containers are open and he can easily access all aspects of meal. Periodic checks recommended to assure patient is progressing with meal without spilling food or liquid. Oral Medication Intake: Whole with Liquid Please contact the pharmacy regarding appropriate crushable or liquid drug formulations that are available whenever modified delivery is recommended. Compensatory Strategies and Precautions to be Taken for Safe Swallow: Sitting Upright (90 deg) Liquids from Cup Small Bites and Sips Supervision While Eating and Drinking for Safe Swallow: Intermittent Supervision Foods to Avoid: Very cold food/liquid due to dental sensitivity. Swallowing Recommended Treatments: Recommendation for Speech: NA:Typical Evaluation Comment: Patient presents with all aspects of oral motor and swallow function WFL. Patient is mildly confused, will need some periodic supervision during meals to assure that he can access all foods/liquids and is progressing with meal (when family members are not present). Recommend UPGRADE to Regular Diet with Thin Liquids pills whole with puree. MD, RD, RN notified of recommendations by secure text. As all aspects of swallow are WFL, and patient is on least restrictive diet, recommend D/C speech at this time. Please re-contact if any additional concerns arise. Frequency/Duration: Date Range for Service Req: Timeline to reassess: Sales Engineer Account Manager Clinican/Clinical Fellow: No Supervisory Statement: I have reviewed and agree with the student/clinical fellow's documentation: N/A Speech Language Pathologist: Yvette Helton M.A., CCC-CRULLER MAKER MACHINE
[2022-11-16 12:00] VITALS: BP 166/82; PULSE 65; RESP 16; TEMP 36.7; O2SAT 94
--- NOTE | 2022-11-16 14:28 | MHC.CM.PN ---
CM met with Patient and Daughter/HCP at bedside and addressed [facility] with them (original given to Daughter and a copy placed on the chart). Patient lives in a house with his Daughter(Works a for [employer])and Son-in Law and he is active with [facility], receives 22 hours/week of [facility]/ [facility] services [employer] is reviewing the home for a possible stair lift. Home/resume said services is the goal and CM has initiated and will follow for dc planning. PCP is Dr. Jermaine Lao.
--- NOTE | 2022-11-16 15:56 | HO.PM.IMPN ---
Subjective Subjective Date of Service: 11/16/22 Interval History: history obtained by daughter patient Yi speaking , at present patient denies headache, no dizziness, no nausea ,no vomiting, no abdominal pain, offers no acute complaints, tolerated diet. Review of Systems all other system reviewed and negative Physical Exam Vital Signs: Vital Signs: Last Vital Signs Temp 98.1 F 11/16/22 12:00 Pulse 65 11/16/22 12:00 Resp 16 11/16/22 12:00 BP 166/82 H 11/16/22 12:00 Pulse Ox 94 11/16/22 12:00 O2 Del Method Room Air 11/16/22 12:00 BMI result Body Mass Index 31.6 Const: Other: General awake alert, resting comfortably in no acute distress. Neck supple no JVD. CVS regular rate rhythm, Respiratory lungs clear to auscultation, no respiratory distress, no wheeze, no rhonchi. Gastrointestinal abdomen soft, nontender, bowel sounds audible, no guarding , no rigidity. Extremities no edema. Neuro . normal speech, moderate cogwheel rigidity upper extremities with clumsy fine finger movements, difficulty getting up from chair, small stepped gait with significant loss of balance, no tremors Skin ecchymosis Objective Data Active Medications Acetaminophen (Acetaminophen 325 Mg Tablet) 650 mg PO Q6H PRN PRN Reason: Pain, Mild (Pain Scale 1-3) Last Admin: 11/16/22 10:18 Dose: 650 mg Documented By: KAMILA Amlodipine Besylate (Amlodipine Besylate 5 Mg Tablet) 5 mg PO BEDTIME [facility]; Protocol Last Admin: 11/16/22 00:07 Dose: Not Given Documented By: LAURIE Non-Admin Reason: pt sleeping Ascorbic Acid (Ascorbic Acid 500 Mg Tablet) 500 mg PO DAILY [facility] Last Admin: 11/16/22 10:17 Dose: 500 mg Documented By: KAMILA Cyanocobalamin (Cyanocobalamin (Vitamin B-12) 1,000 Mcg Tablet) 1,000 mcg PO DAILY [facility] Last Admin: 11/16/22 10:16 Dose: 1,000 mcg Documented By: KAMILA Enoxaparin Sodium (Enoxaparin Sodium 40 Mg/0.4 Ml Syringe) 40 mg SUBCUT Q24H [facility] Last Admin: 11/15/22 21:12 Dose: Not Given Documented By: WENDY Non-Admin Reason: see note Comments: per daughter, patient has extensive hx of rectal bleeding and should not have blood thinners Ferrous Sulfate (Ferrous Sulfate 324 Mg Tablet.Dr) 324 mg PO BEDTIME [facility] Last Admin: 11/16/22 00:07 Dose: Not Given Documented By: LAURIE Non-Admin Reason: pt sleeping Losartan Potassium (Losartan Potassium 50 Mg Tablet) 100 mg PO DAILY [facility]; Protocol Last Admin: 11/16/22 10:17 Dose: 100 mg Documented By: KAMILA Melatonin (Melatonin 3 Mg Tablet) 6 mg PO BEDTIME PRN PRN Reason: Insomnia Ondansetron HCl (Ondansetron Hcl 4 Mg/2 Ml Vial) 4 mg IVPUSH Q8H PRN PRN Reason: Nausea and Vomiting Sodium Chloride (0.9 % Sodium Chloride Flush 3 Ml Syringe) 3 ml IVFLUSH QSHIFT [facility] Last Admin: 11/16/22 10:18 Dose: 3 ml Documented By: KAMILA Vitamin D (Cholecalciferol (Vitamin D3) 25 Mcg Tablet) 25 mcg PO DAILY [facility] Last Admin: 11/16/22 10:17 Dose: 25 mcg Documented By: KAMILA Labs 11/15/22 13:09 11/16/22 06:46 Labs: Laboratory Results - last 24 hr 11/15/22 11/15/22 11/15/22 15:52 16:58 20:24 Anion Gap Estim Creat Clear Calc Estimated GFR Random Glucose Calcium Total Bilirubin AST ALT Alkaline Phosphatase Ammonia 27 Total Protein Albumin Vitamin B12 509 Folate TSH 1.71 Urine Color Yellow Urine Appearance Clear Urine pH 7.5 Ur Specific [place] 1.020 Urine Protein Negative Urine Glucose (UA) Negative Urine Ketones Negative Urine Blood Negative Urine Nitrite Negative Ur Leukocyte Esterase Negative COVID-19 ([facility]) Negative COVID-19 Clin Com See Note 11/16/22 06:46 Anion Gap 10 L Estim Creat Clear Calc 96.4 Estimated GFR > 60 Random Glucose 90 Calcium 9.3 Total Bilirubin 0.4 AST 12 ALT 7 Alkaline Phosphatase 79 Ammonia Total Protein 6.5 Albumin 3.5 Vitamin B12 443 Folate 6.5 TSH 1.68 Urine Color Urine Appearance Urine pH Ur Specific [place] Urine Protein Urine Glucose (UA) Urine Ketones Urine Blood Urine Nitrite Ur Leukocyte Esterase COVID-19 ([facility]) COVID-19 Clin Com Assessment and Plan (1) Generalized weakness: Status: Acute (2) Parkinsonism: Status: Acute (3) Physical deconditioning: Status: Acute Plan 77-year-old male with a PMH significant for?HTN, pituitary tumor, JAYASHREE on CPAP, and hx of GI bleed who presents to the ED for evaluation generalized weakness, multiple falls, and altered mental status. ?Pt will be admitted to the hospital under observation for further evaluation of generalized weakness with frequent falls. Generalized weakness with frequent falls history of recurrent falls for last couple years has been evaluated in emergency room in the past with negative workup, was brought in due to 5 falls in last 1 week and for concern for seizure CT head showed no acute abnormality, symptoms less likely related to history of pituitary tumor with normal electrolytes, sugars and stable vitals No clear infectious source: No leukocytosis, CT of chest negative for infiltrate, UA negative for UTI normal TSH, B12 and folate patient residing at home with daughter has [facility] PT OT services and a was ambulating with a wheeled walker, patient evaluated by PT and they recommend front wheeled walker versus Rollator due to balance deficit. seen by Neurology they diagnosed him with parkinsonism/ dementia complex involving during last few years patient started on carbidopa levodopa 25/100 3 times a day before meals HTN Continue losartan, amlodipine and follow BP closely chronic Normocytic anemia H&H 11.4/35.0, stable at baseline, Continue ferrous sulfate JAYASHREE CPAP at night Full Code DVT Prophylaxis: Lovenox admitted to the hospital under observation on telemetry for further evaluation of generalized weakness with frequent falls with close monitoring and specialist consultation. Time Spent With Patient Time: Total time managing care of this patient today ____ minutes. Quality Stroke Does the patient have a stroke diagnosis?: No VTE Prior VTE?: No VTE Risk Level:: Medical - moderate - high VTE Device Contraindication: Treatment Not Indicated VTE Drug Contraindication: N/A - Med Ordered
[2022-11-16 16:00] VITALS: BP 157/82; PULSE 66; RESP 18; TEMP 36.2; O2SAT 97
--- NOTE | 2022-11-16 16:13 | PM.NEUROCN ---
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 His daughter was here reported is history stating that his problem started probably about 3 years ago. He had fallen few times but had not passed out. He would lose is balance usually falling backwards. There was no sign of convulsion. He was also somewhat forgetful. Review of Systems Review of Systems: Multiple falls during last few years [facility] Past Medical History Medical History Seasonal allergies Hyperlipidemia Hypertension GI bleed Social History Social History Alcohol intake: current Alcohol intake frequency: holidays/special occasions only Patient Tobacco Use Status: Never used Tobacco Smoked in Last 30 Days: No Use of substances other than those prescribed or required for medical reasons: No Advance Directives: Yes Advance Directives on File: No Advance Directives Date on File: 11/16/22 Nutrition Risks: No Nutritional Risk service: No Meds Allergies Allergy/AdvReac Type Severity Reaction Status Date / Time Seasonal Allergies Allergy Mild sneezing, Verified 03/28/21 16:22 watery eyes Active Medications: Current Medications Acetaminophen (Acetaminophen 325 Mg Tablet) 650 mg PO Q6H PRN PRN Reason: Pain, Mild (Pain Scale 1-3) Last Admin: 11/16/22 10:18 Dose: 650 mg Amlodipine Besylate (Amlodipine Besylate 5 Mg Tablet) 5 mg PO BEDTIME [facility]; Protocol Last Admin: 11/16/22 00:07 Dose: Not Given Ascorbic Acid (Ascorbic Acid 500 Mg Tablet) 500 mg PO DAILY [facility] Last Admin: 11/16/22 10:17 Dose: 500 mg Cyanocobalamin (Cyanocobalamin (Vitamin B-12) 1,000 Mcg Tablet) 1,000 mcg PO DAILY [facility] Last Admin: 11/16/22 10:16 Dose: 1,000 mcg Enoxaparin Sodium (Enoxaparin Sodium 40 Mg/0.4 Ml Syringe) 40 mg SUBCUT Q24H [facility] Last Admin: 11/15/22 21:12 Dose: Not Given Ferrous Sulfate (Ferrous Sulfate 324 Mg Tablet.) 324 mg PO BEDTIME [facility] Last Admin: 11/16/22 00:07 Dose: Not Given Losartan Potassium (Losartan Potassium 50 Mg Tablet) 100 mg PO DAILY [facility]; Protocol Last Admin: 11/16/22 10:17 Dose: 100 mg Melatonin (Melatonin 3 Mg Tablet) 6 mg PO BEDTIME PRN PRN Reason: Insomnia Ondansetron HCl (Ondansetron Hcl 4 Mg/2 Ml Vial) 4 mg IVPUSH Q8H PRN PRN Reason: Nausea and Vomiting Sodium Chloride (0.9 % Sodium Chloride Flush 3 Ml Syringe) 3 ml IVFLUSH QSHIFT [facility] Last Admin: 11/16/22 10:18 Dose: 3 ml Vitamin D (Cholecalciferol (Vitamin D3) 25 Mcg Tablet) 25 mcg PO DAILY [facility] Last Admin: 11/16/22 10:17 Dose: 25 mcg Home Medications Medication Instructions Recorded Confirmed Last Taken Type amlodipine 5 mg tablet 5 mg PO BEDTIME 11/15/22 11/15/22 11/14/22 History ascorbic acid (vitamin C) 500 mg 500 mg PO DAILY 11/15/22 11/15/22 11/15/22 History tablet cholecalciferol (vitamin D3) 25 25 mcg PO DAILY 11/15/22 11/15/22 11/15/22 History mcg (1,000 unit) tablet cyanocobalamin (vitamin B-12) 1,000 mcg PO DAILY 11/15/22 11/15/22 11/15/22 History 1,000 mcg tablet ferrous sulfate 324 mg (65 mg 324 mg PO BEDTIME 11/15/22 11/15/22 11/14/22 History iron) tablet,delayed release losartan 100 mg tablet 100 mg PO DAILY 11/15/22 11/15/22 11/15/22 History Physical Exam Vital Signs: Vital Signs: Last Vital Signs Temp 97.2 F 11/16/22 16:00 Pulse 66 11/16/22 16:00 Resp 18 11/16/22 16:00 BP 157/82 H 11/16/22 16:00 Pulse Ox 97 11/16/22 16:00 O2 Del Method Room Air 11/16/22 16:00 BMI result Body Mass Index 31.6 Neuro: Other: Alert and awake with normal spontaneity of speech fluency comprehension and flat affect. He understood angle a lyons spoke some but mostly he spoke Spanish. Facial expression blinking were diminished. There was generalize moderate bradykinesia. Moderate cogwheeling rigidity was noted upper extremities with clumsy fine finger movements. He had difficulty getting up from chair and walked in a small stepped gait with significant loss of balance or truncal ataxia. Speech was soft but okay. There was no distinct tremor. Results Labs 11/15/22 13:09 11/16/22 06:46 Labs: BMP 11/16/22 06:46 Sodium 141 Potassium 4.2 Chloride 109 H Carbon Dioxide 26 BUN 11 Creatinine 0.76 Calcium 9.3 Liver Function 11/16/22 Range/Units 06:46 Total Bilirubin 0.4 (0.0-1.0) mg/dL AST 12 (5-37) U/L ALT 7 (0-40) U/L Alkaline Phosphatase 79 (39-117) U/L Albumin 3.5 (3.5-5.0) g/dL Urine 11/15/22 Range/Units 16:58 Urine Color Yellow Urine Appearance Clear Urine pH 7.5 (5.0-9.0) Ur Specific [place] 1.020 (1.005-1.025) Urine Protein Negative (Neg-Trace) mg/dL Urine Glucose (UA) Negative (Negative) mg/dL Head CT revealed moderate diffuse cerebral atrophy central and cortical with mild microvascular ischemic changes. Assessment and Plan (1) Parkinsonism: Status: Acute 77 years old man with parkinsonism/dementia complex evolving during last few years. There was no indication of normal-pressure hydrocephalus and brain imaging did not any focal lesion. At this time, my recommendation is to start him on carbidopa levodopa 25/100 3 times a day each does about an hour before meal. 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 His daughter was educated about this condition. Time Spent With Patient Time: Total time managing care of this patient today ____ minutes. Procedures Date of Service Date of Service: 11/16/22
--- NOTE | 2022-11-16 16:53 | PM.DS ---
DS: Providers Provider Date of Service: 11/16/22 Date of admission: 11/15/22 19:17 Primary care physician: DIANA Brice Consults: 11/15/22 22:29 Consult to Neurology Routine Consulting Provider: [facility] Reason for consultation: Multiple falls within past week, lethargy, generalized weakness, AMS DS: Diagnosis Discharge Diagnosis (1) Generalized weakness: Status: Acute (2) Parkinsonism: Status: Acute (3) Physical deconditioning: Status: Acute DS: Summary Hospital Course Hospital Course: Date of Service: 11/15/22 <DIANA Allan - Last Filed: 11/15/22 23:16> Attending physician on admission: Isatu Ocampo <DIANA Allan - Last Filed: 11/15/22 23:16> Chief Complaint: Multiple falls, generalized weakness, AMS <DIANA Allan - Last Filed: 11/15/22 23:16> Pt is a 77-year-old male with a PMH significant for?HTN, pituitary tumor, JAYASHREE on CPAP, and hx of GI bleed who presents to the ED for evaluation generalized weakness, multiple falls, and altered mental status. ?Patient is accompanied by his daughter provides most of the detailed HPI. Patient himself is alert but lethargic, slow to respond, get answers appropriately. Patient is somnolent at times but easily arousable but drifts in and out of sleep. Patient's daughter states that he has fallen 5 times in the past 7 days, twice with headstrikes including one with a small bleeding laceration to back of his skull yesterday. Pt had two falls earlier today and was evaluated by home PT who advised to come to the ED for further evaluation. Daughter notes one fall in particular seemed seizure-like : Patient fell in the kitchen and was nonresponsive but patient still had his eyes open, his hands clenched ?like claws?, and his face like a ?rictus . Has occasionally acted confused during this time. He has also has been experiencing increased shortness of breath and productive cough for the past 2 days. Daughter notes patient has always been very active both physically and mentally. Has been declining some during the past 3-4 years, but has markedly and sharply declined in the past 7 days. Of note, patient has been monitored for the past 15 years for a known pituitary tumor. Patient is not currently followed by Neurology, though has an order for an outpatient MRI for Parkinson's and dementia workup by PCP. Patient is also on a waiting list to see outpatient Neurology at [facility], though will not be seen for many months. In the ED patient was afebrile and slightly hypertensive up to 157/86, satting at 93% on RA. Labs were significant for stable normocytic anemia of 11.4/35.0, initial troponin 19.2 with repeat flat at 16.0. Electrolytes WNL. Renal function baseline. Hepatic function baseline. UA negative for UTI. Patient tested negative for COVID. CXR showed bilateral basilar opacities that may be areas of atelectasis or infiltrate or possibly contusion. No pneumothorax, effusion, or displaced fracture. X-ray of right wrist found no acute fracture or dislocation, but showed a probable old fracture deformity of distal radius. Also found minimal step-off of the radial head cortex toward the radial aspect that could be degenerative in nature but in underlying fracture cannot be completely excluded. CT of head found scattered chronic small vessel ischemia changes within the periventricular white matter but no evidence of acute territorial infarct or hemorrhage. CT of chest found bilateral lower lobe compressive atelectasis and minimal bibasilar scarring with a 3 mm calcified nodule of the right upper lobe. ?EKG demonstrated sinus rhythm with first-degree AV block and no evidence of ST elevations or depressions. Pt will be admitted to the hospital under observation for further evaluation of generalized weakness and altered mental status hospital course: 77-year-old male with a PMH significant for?HTN, pituitary tumor, JAYASHREE on CPAP, and hx of GI bleed who presents to the ED for evaluation generalized weakness, multiple falls, and altered mental status. ?Pt. admitted to the hospital under observation for further evaluation of generalized weakness with frequent falls, patient underwent extensive workup CT head showed no acute abnormality, symptoms less likely related to history of pituitary tumor with normal electrolytes, sugars and stable vitals No clear infectious source: No leukocytosis, CT of chest negative for infiltrate, UA negative for UTI, normal TSH, B12 and folate, patient seen by Dr. Garcia from Neurology diagnose patient to have parkinsonism/dementia complex involving during the last few years he felt there was no indication for normal pressure hydrocephalus he recommended carbidopa levodopa 25/100 3 times a day and our before meal and recommended outpatient neurology follow-up, patient evaluated by PT and they recommend front wheeled walker versus Rollator due to balance deficit, patient is being discharged home with [facility] in PT services. HTN Continue losartan, amlodipine and follow BP closely chronic Normocytic anemia H&H 11.4/35.0, stable at baseline, Continue ferrous sulfate JAYASHREE recommend to continue CPAP at night Time Spent with Patient Time attestation: Total time managing care of this patient today ____ minutes. Discharge coordination time: Greater than 30 minutes Quality: Safe Use of Opioids Does Pt have an Active Cancer Diagnosis on the Problem List?: No Quality: Stroke Does the patient have a stroke diagnosis?: No Physical Exam Vital Signs: Vital Signs: Last Vital Signs Temp 97.2 F 11/16/22 16:00 Pulse 66 11/16/22 16:00 Resp 18 11/16/22 16:00 BP 157/82 H 11/16/22 16:00 Pulse Ox 97 11/16/22 16:00 O2 Del Method Room Air 11/16/22 16:00 BMI result Body Mass Index 31.6 Const: Other: General awake alert, resting comfortably in no acute distress. Neck supple no JVD. CVS regular rate rhythm, Respiratory lungs clear to auscultation, no respiratory distress, no wheeze, no rhonchi. Gastrointestinal abdomen soft, nontender, bowel sounds audible, no guarding , no rigidity. Extremities no edema. Neuro . normal speech, moderate cogwheel rigidity upper extremities with clumsy fine finger movements, difficulty getting up from chair, small stepped gait with significant loss of balance, no tremors Skin ecchymosis DS: Data Data Completed and Pending Labs on day of discharge: Laboratory Results - last 24 hr 11/15/22 11/15/22 11/16/22 16:58 20:24 06:46 Sodium 141 Potassium 4.2 Chloride 109 H Carbon Dioxide 26 Anion Gap 10 L BUN 11 Creatinine 0.76 Estim Creat Clear Calc 96.4 Estimated GFR > 60 Random Glucose 90 Calcium 9.3 Total Bilirubin 0.4 AST 12 ALT 7 Alkaline Phosphatase 79 Ammonia 27 Total Protein 6.5 Albumin 3.5 Vitamin B12 509 443 Folate 6.5 TSH 1.71 1.68 Urine Color Yellow Urine Appearance Clear Urine pH 7.5 Ur Specific [place] 1.020 Urine Protein Negative Urine Glucose (UA) Negative Urine Ketones Negative Urine Blood Negative Urine Nitrite Negative Ur Leukocyte Esterase Negative Discharge Plan Discharge Anticipated Discharge Date/Time: 11/16/22 16:46 Patient Disposition: Home Health Service Discharge Diagnosis: generalized weakness recurrent falls parkinsonism/dementia Referrals: [facility] [Outside] - 1 Week Jermaine Lao PA [Primary Care Provider] - 1 Week Discharge Medications: New albuterol sulfate 90 mcg/actuation aerosol powdr breath activated 2 inh inhalation Q4-6H PRN (Reason: shortness of breath or wheezing) Qty: 1 0RF carbidopa-levodopa 25-100 mg Tablet 1 tab PO TID Qty: 90 0RF Continued losartan 100 mg tablet 100 mg PO DAILY cyanocobalamin (vitamin B-12) 1,000 mcg Tablet 1,000 mcg PO DAILY amlodipine 5 mg Tablet 5 mg PO BEDTIME ascorbic acid (vitamin C) 500 mg Tablet 500 mg PO DAILY cholecalciferol (vitamin D3) 25 mcg (1,000 unit) Tablet 25 mcg PO DAILY ferrous sulfate 324 mg (65 mg iron) Tablet,Delayed Release (Dr/Ec) 324 mg PO BEDTIME Discharge Orders: Discharge Order (Routine); Ordered 11/16/22 Ordered By: Beata Rojas Diet: Advance to usual diet Activity on Discharge: As tolerated Stand Alone Forms: Patient Portal Discharge page Activity Restrictions/Additional Instructions: Take carbidopa/ levodopa 1 hour before meals. Care Plan Goals: continue physical therapy at home Health Concerns: generalized weakness Plan of Treatment: outpatient follow-up with neurologist Dr. Garcia call for appointment in 1 month or follow-up with your primary neurologist Assessment: as above Discharge Date/Time: 11/16/22 17:51
--- NOTE | 2022-11-17 07:44 | MHC.CM.PN ---
Patient was dc to home late yesterday. Patient was active with [facility], who has been notified of the dc yesterday.
== END 2022-11-16 17:51 | disposition home health service (06) ==
LOC: HO.ED 18:05 → HO.EDOVER 19:23 → HO.S3 19:29 → HO.IMC 22:28
PROVIDERS: Physician Assistant; Student in an Organized Health Care Education/Training Program; Admitting Provider Student in an Organized Health Care Education/Training Program; Emergency Provider Emergency Medicine; PCP Student in an Organized Health Care Education/Training Program; Visit Provider Hospitalist
DX: G20 Parkinson's disease (principal); F02.80 Dementia in other diseases classified elsewhere, unspecified severity, without behavioral disturbance, psychotic disturbance, mood disturbance, and anxiety; R41.82 Altered mental status, unspecified; R53.1 Weakness; R29.6 Repeated falls; I10 Essential (primary) hypertension; D49.7 Neoplasm of unspecified behavior of endocrine glands and other parts of nervous system; E78.5 Hyperlipidemia, unspecified; R06.02 Shortness of breath; R91.1 Solitary pulmonary nodule; D64.9 Anemia, unspecified; G47.33 Obstructive sleep apnea (adult) (pediatric); Z20.822 Contact with and (suspected) exposure to COVID-19
CPT/HCPCS: 36415; 70450; 71045; 71260; 73070; 73110; 80053; 81003; 82140; 82550; 82607; 82746; 83735; 83880; 84443; 84484; 85025; 87635; 92610; 93005; 94660; 97162; 99222; 99285; Q9967

== ENCOUNTER → 2022-11-15 19:17 | Outpatient (BNV) | payer OTHER, SELFPAY | PROVIDERS: Admitting Provider Student in an Organized Health Care Education/Training Program; Emergency Provider Emergency Medicine; PCP Student in an Organized Health Care Education/Training Program; Visit Provider Student in an Organized Health Care Education/Training Program | DX: R53.1 Weakness (principal); G20 Parkinson's disease; R53.81 Other malaise; R29.6 Repeated falls | CPT/HCPCS: 99222; 99239 ==

== ENCOUNTER 2023-05-05 19:50 | Emergency (ER) | payer OTHER, SELFPAY ==
--- NOTE | ~2023-05-05 | CT_ITS ---
EXAMINATION: CT HEAD WITHOUT CONTRAST (STROKE PROTOCOL) CLINICAL INFORMATION: Stroke protocol. Altered mental status COMPARISON: CT head November 15, 2022 TECHNIQUE: Contiguous axial imaging was performed from the skull base to vertex without intravenous administration of contrast. Coronal and sagittal reformatted images are performed at the CT scanner. [This CT examination was performed using dose optimization techniques as appropriate, variously including the following: *Automated exposure control *Adjustment of mA and/or kV according to patient size (this includes techniques or standardized protocols for targeted exams where dose is matched to indication/reason for exam; i.e. extremities or head) *Use of iterative reconstruction technique] DLP: 795 mGy-cm. FINDINGS: There is no evidence of acute intracranial hemorrhage or territorial infarction. No abnormal mass-effect or midline shift is seen. [place] to white matter differentiation is well preserved. No extra-axial fluid collections are identified. There is generalized global volume loss. There is mild prominence of the ventricles and the sulci . There is mild hypodensity of the periventricular white matter due to chronic small vessel ischemic disease. There are vascular calcifications of the internal carotid arteries bilaterally. There is no osseous abnormality. The mastoid air cells and visualized portions of the paranasal sinuses are well-aerated. CT/CT head for stroke IMPRESSION: No acute intracranial pathology. This critical result was discussed with Itz Carbone at 2007 hours on 05/05/2023. It was ascertained that the content and urgency of the report was understood at the time of direct communication.
--- NOTE | ~2023-05-05 | XR_ITS ---
EXAMINATION: XR CHEST CLINICAL INFORMATION: Shortness of breath. COMPARISON: Chest x-ray November 15, 2022 TECHNIQUE: Frontal portable view of the chest was obtained. 9:14 PM FINDINGS: Lungs are clear. No pulmonary vascular congestion. There is no pleural effusion. The heart size is normal. The cardiac and mediastinal contours are normal. There are calcifications of the thoracic aorta. There are multilevel degenerative changes of dorsal spine. XR/XR chest 1V IMPRESSION: Unremarkable examination.
--- NOTE | 2023-05-05 19:54 | ECG_ITS ---
Test Reason : STROKE Blood Pressure : / mmHG Vent. Rate : 069 BPM Atrial Rate : 069 BPM P-R Int : 240 ms QRS Dur : 088 ms QT Int : 426 ms P-R-T Axes : 070 000 077 degrees QTc Int : 456 ms Sinus rhythm with 1st degree A-V block Otherwise normal ECG When compared with ECG of 15-NOV-2022 13:13, No significant change was found Referred By: Itz Rios Electronically Signed By:RUDDY GUTIERREZ MD
--- NOTE | 2023-05-05 19:56 | ED_ITS ---
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 According to his family had a sudden onset of diaphoresis and he soaked through his shirt. He felt very cold and clammy. The patient told his daughter that he thought he was going to . Had a brief period where he is unresponsive and was talking a high pitched voice which was unusual for him. According to the family the symptoms lasted about 30 minutes and they called an ambulance. Patient was brought in as a possible stroke alert. I evaluated the patient on the pc support specialist stretcher, he did follow commands in Wolof, he was able to open and close his eyes, stick out his tongue, move all extremities symmetrically. According to the family the patient has not been ill recently but he may have had an unwitnessed fall yesterday. He does fall frequently secondary to his Parkinson's disease. The patient has also been having difficulty swallowing liquids but not solids. Because this dysphagia, the patient was started on primary pramipexole and he has been on this medication for 1 week. Related Data Home Medications Medication Instructions Recorded Confirmed amlodipine 5 mg tablet 5 mg PO BEDTIME 11/15/22 11/15/22 ascorbic acid (vitamin C) 500 mg 500 mg PO DAILY 11/15/22 11/15/22 tablet cholecalciferol (vitamin D3) 25 25 mcg PO DAILY 11/15/22 11/15/22 mcg (1,000 unit) tablet cyanocobalamin (vitamin B-12) 1,000 mcg PO DAILY 11/15/22 11/15/22 1,000 mcg tablet ferrous sulfate 324 mg (65 mg 324 mg PO BEDTIME 11/15/22 11/15/22 iron) tablet,delayed release losartan 100 mg tablet 100 mg PO DAILY 11/15/22 11/15/22 Previous Rx's Medication Instructions Recorded albuterol sulfate 90 mcg/actuation 2 inh inhalation Q4-6H PRN 11/15/22 breath activated powder inhaler shortness of breath or wheezing #1 ea carbidopa 25 mg-levodopa 100 mg 1 tab PO TID #90 tabs 11/16/22 tablet diclofenac sodium 1 % topical gel 4 g topical QID PRN joint pain 05/06/23 (Voltaren Arthritis Pain) #100 grams Allergies Allergy/AdvReac Type Severity Reaction Status Date / Time Seasonal Allergies Allergy Mild sneezing, Verified 03/28/21 16:22 watery eyes PMFSH Past Medical History Medical History Seasonal allergies Hyperlipidemia Hypertension GI bleed Social History Social History Alcohol intake: current Alcohol intake frequency: holidays/special occasions only Patient Tobacco Use Status: Never used Tobacco Advance Directives: Yes Advance Directives Information Provided: No Advance Directives on File: No Advance Directives Date on File: 11/16/22 service: No Physical Exam 2 Vital Signs: Vital Signs: Last Vital Signs Temp 97.6 F 05/05/23 20:27 Pulse 74 05/05/23 23:21 Resp 26 H 05/05/23 23:21 BP 137/84 05/05/23 23:21 Pulse Ox 93 05/05/23 23:21 O2 Del Method Room Air 05/05/23 23:21 BMI result Body Mass Index 31.8 Medical Decision Making Medical Decision Making MDM Narrative: 77-year-old male with a history of hypertension, obstructive sleep apnea, Lewy body dementia, Parkinson's, frequent falls who presents emergency department for evaluation of altered mental status. According to his family had a sudden onset of diaphragm with a brief period of unresponsiveness , feeling of doom and a change in the picture of his voice with symptoms lasting 30 minute. Patient was transported by ambulance for possible stroke alert. Vital signs were unremarkable. Examination was normal. Differential diagnosis: ?Includes but is not limited to myocardial infarction, myocardial ischemia, pneumonia, stroke, urinary tract infection, electrolyte abnormality, anemia, adverse reaction to new medication Following evaluation was ordered: CBC, BMP, CPK, magnesium, PT/INR, PTT, troponin, ethanol, urinalysis, COVID-19, influenza, RSV, chest x-ray, CT scan of the head rule out stroke, EKG Course: 00:23 My interpretation patient's laboratory evaluation is as follows: CBC was normal, CMP revealed an elevated glucose of 120. Urinalysis was negative. Alcohol was below detectable limits. First troponin was 4.2, repeat 3 hour troponin was 3.5 which is reassuring that there was no significant increased. COVID-19, influenza and RSV were negative. Chest x-ray revealed no evidence of pneumonia. CT scan of the brain revealed no evidence of stroke, bleed or fracture 12 EKG was unremarkable. At this time I do not have a clear etiology for the patient's symptoms and I did discuss this with the family. It is possible the patient may have an early viral syndrome. the home and advised to continue taking his medications as prescribed. Family is requesting Voltaren topical gel for his left hip and knee joint pain which I did prescribe. Admission/Observation Consideration of admission/observation: Escalation of care including admission/observation considered Lab Data MDM Lab Attestation statement: I reviewed the patient's lab results. 05/05/23 20:09 05/05/23 20:30 Labs: Lab Results 05/05/23 05/05/23 05/05/23 Range/Units 20:06 20:09 20:12 WBC 6.0 (4.8-10.8) X10*3/uL RBC 4.71 (4.60-5.80) X10*6/uL Hgb 13.3 L (14.0-18.0) g/dl Hct 40.0 L (42.0-52.0) % MCV 84.9 (80.0-98.0) fL MCH 28.2 (27.0-33.0) pg MCHC 33.3 (31.0-36.0) g/dl RDW 14.2 (11.0-16.0) % Plt Count 216 (160-400) X10*3/uL MPV 9.6 (9.4-12.4) fL Immature Gran % (Auto) 0.2 (0.0-0.4) % Neut % (Auto) 69.8 (45-73) % Lymph % (Auto) 21.1 (20-40) % [place] % (Auto) 6.5 (2-11) % Eos % (Auto) 1.7 (0-4) % Baso % (Auto) 0.7 (0-2) % Lymph # (Auto) 1.3 (1.2-4.9) X10*3/uL Baldwin # (Auto) 0.4 (0.1-1.2) X10*3/uL Eos # (Auto) 0.1 (0.0-0.4) X10*3/uL Baso # (Auto) 0.0 (0.0-0.2) X10*3/uL Abs Immat Gran (auto) 0.01 (0.00-0.03) X10*3/uL Absolute Neuts (auto) 4.2 (2.0-8.3) x10*3/uL Absolute Nucleated RBC 0.000 (0.0-0.012) X10*3/uL Nucleated RBC % (auto) 0.0 (0.0-0.2) /100WBC PT 12.7 (11.1-13.3) SEC Whole Blood PT 14.1 H (11.1-13.5) sec INR 1.0 (0.9-1.1) Whole Blood INR 1.2 H (0.9-1.1) APTT 25.7 L (26.0-36.8) SEC Sodium (135-145) mmol/L Potassium (3.3-5.1) mmol/L Chloride (96-108) mmol/L Carbon Dioxide (22-29) mmol/L Anion Gap (12-20) BUN (9-16) mg/dL Creatinine (0.5-1.4) mg/dL Estim Creat Clear Calc Estimated GFR POC Glucose 108 (60-115) mg/dL Random Glucose (60-115) mg/dL Calcium (8.4-10.2) mg/dL Magnesium (1.6-2.6) mg/dL Total Bilirubin (0.0-1.0) mg/dL Direct Bilirubin (0.0-0.5) mg/dL AST (5-37) U/L ALT (0-40) U/L Alkaline Phosphatase (39-117) U/L Total Creatine Kinase (38-174) U/L Troponin I High Sens 4.2 D (<3.5-35.0) ng/L Total Protein (6.5-8.0) g/dL Albumin (3.5-5.0) g/dL Urine Color Urine Appearance Urine pH (5.0-9.0) Ur Specific [place] (1.005-1.025) Urine Protein (Neg-Trace) mg/dL Urine Glucose (UA) (Negative) mg/dL Urine Ketones (Negative) mg/dL Urine Blood (Negative) Urine Nitrite (Negative) Ur Leukocyte Esterase (Negative) Ethyl Alcohol mg/dL Influenza Type A (PCR) (Negative) Influenza Type B (PCR) (Negative) RSV RNA Qual (PCR) (Negative) SARS-CoV-2 RNA (RT-PCR) (Negative) 05/05/23 05/05/23 05/05/23 Range/Units 20:30 21:55 22:40 WBC (4.8-10.8) X10*3/uL RBC (4.60-5.80) X10*6/uL Hgb (14.0-18.0) g/dl Hct (42.0-52.0) % MCV (80.0-98.0) fL MCH (27.0-33.0) pg MCHC (31.0-36.0) g/dl RDW (11.0-16.0) % Plt Count (160-400) X10*3/uL MPV (9.4-12.4) fL Immature Gran % (Auto) (0.0-0.4) % Neut % (Auto) (45-73) % Lymph % (Auto) (20-40) % Baldwin % (Auto) (2-11) % Eos % (Auto) (0-4) % Baso % (Auto) (0-2) % Lymph # (Auto) (1.2-4.9) X10*3/uL [place] # (Auto) (0.1-1.2) X10*3/uL Eos # (Auto) (0.0-0.4) X10*3/uL Baso # (Auto) (0.0-0.2) X10*3/uL Abs Immat Gran (auto) (0.00-0.03) X10*3/uL Absolute Neuts (auto) (2.0-8.3) x10*3/uL Absolute Nucleated RBC (0.0-0.012) X10*3/uL Nucleated RBC % (auto) (0.0-0.2) /100WBC PT (11.1-13.3) SEC Whole Blood PT (11.1-13.5) sec INR (0.9-1.1) Whole Blood INR (0.9-1.1) APTT (26.0-36.8) SEC Sodium 139 (135-145) mmol/L Potassium 4.4 (3.3-5.1) mmol/L Chloride 109 H (96-108) mmol/L Carbon Dioxide 23 (22-29) mmol/L Anion Gap 11 L (12-20) BUN 20 H (9-16) mg/dL Creatinine 0.97 (0.5-1.4) mg/dL Estim Creat Clear Calc 75.7 Estimated GFR > 60 POC Glucose (60-115) mg/dL Random Glucose 120 H (60-115) mg/dL Calcium 9.3 (8.4-10.2) mg/dL Magnesium 2.1 (1.6-2.6) mg/dL Total Bilirubin 0.4 (0.0-1.0) mg/dL Direct Bilirubin 0.1 (0.0-0.5) mg/dL AST 17 (5-37) U/L ALT 9 (0-40) U/L Alkaline Phosphatase 89 (39-117) U/L Total Creatine Kinase 40 (38-174) U/L Troponin I High Sens (<3.5-35.0) ng/L Total Protein 7.0 (6.5-8.0) g/dL Albumin 3.7 (3.5-5.0) g/dL Urine Color Yellow Urine Appearance Clear Urine pH 6.5 (5.0-9.0) Ur Specific [place] 1.010 (1.005-1.025) Urine Protein Trace (Neg-Trace) mg/dL Urine Glucose (UA) Negative (Negative) mg/dL Urine Ketones Negative (Negative) mg/dL Urine Blood Negative (Negative) Urine Nitrite Negative (Negative) Ur Leukocyte Esterase Negative (Negative) Ethyl Alcohol < 10 mg/dL Influenza Type A (PCR) NEGATIVE (Negative) Influenza Type B (PCR) NEGATIVE (Negative) RSV RNA Qual (PCR) NEGATIVE (Negative) SARS-CoV-2 RNA (RT-PCR) NEGATIVE (Negative) 05/05/23 Range/Units 23:11 WBC (4.8-10.8) X10*3/uL RBC (4.60-5.80) X10*6/uL Hgb (14.0-18.0) g/dl Hct (42.0-52.0) % MCV (80.0-98.0) fL MCH (27.0-33.0) pg MCHC (31.0-36.0) g/dl RDW (11.0-16.0) % Plt Count (160-400) X10*3/uL MPV (9.4-12.4) fL Immature Gran % (Auto) (0.0-0.4) % Neut % (Auto) (45-73) % Lymph % (Auto) (20-40) % Baldwin % (Auto) (2-11) % Eos % (Auto) (0-4) % Baso % (Auto) (0-2) % Lymph # (Auto) (1.2-4.9) X10*3/uL [place] # (Auto) (0.1-1.2) X10*3/uL Eos # (Auto) (0.0-0.4) X10*3/uL Baso # (Auto) (0.0-0.2) X10*3/uL Abs Immat Gran (auto) (0.00-0.03) X10*3/uL Absolute Neuts (auto) (2.0-8.3) x10*3/uL Absolute Nucleated RBC (0.0-0.012) X10*3/uL Nucleated RBC % (auto) (0.0-0.2) /100WBC PT (11.1-13.3) SEC Whole Blood PT (11.1-13.5) sec INR (0.9-1.1) Whole Blood INR (0.9-1.1) APTT (26.0-36.8) SEC Sodium (135-145) mmol/L Potassium (3.3-5.1) mmol/L Chloride (96-108) mmol/L Carbon Dioxide (22-29) mmol/L Anion Gap (12-20) BUN (9-16) mg/dL Creatinine (0.5-1.4) mg/dL Estim Creat Clear Calc Estimated GFR POC Glucose (60-115) mg/dL Random Glucose (60-115) mg/dL Calcium (8.4-10.2) mg/dL Magnesium (1.6-2.6) mg/dL Total Bilirubin (0.0-1.0) mg/dL Direct Bilirubin (0.0-0.5) mg/dL AST (5-37) U/L ALT (0-40) U/L Alkaline Phosphatase (39-117) U/L Total Creatine Kinase (38-174) U/L Troponin I High Sens 3.5 (<3.5-35.0) ng/L Total Protein (6.5-8.0) g/dL Albumin (3.5-5.0) g/dL Urine Color Urine Appearance Urine pH (5.0-9.0) Ur Specific [place] (1.005-1.025) Urine Protein (Neg-Trace) mg/dL Urine Glucose (UA) (Negative) mg/dL Urine Ketones (Negative) mg/dL Urine Blood (Negative) Urine Nitrite (Negative) Ur Leukocyte Esterase (Negative) Ethyl Alcohol mg/dL Influenza Type A (PCR) (Negative) Influenza Type B (PCR) (Negative) RSV RNA Qual (PCR) (Negative) SARS-CoV-2 RNA (RT-PCR) (Negative) Independent Interpretation I performed an independent interpretation of an: EKG and Plain X-Ray Interpretation: My independent interpretation of the patient's chest x-ray is as follows: No acute disease My independent interpretation patient's 12 EKG done at 18:35 hours is as follows: Sinus rhythm with a rate of 69, first-degree AV block with a MS 240 milliseconds, normal QRS duration QTC interval, Q-wave in lead 3 and AVF, Q-wave in V1, no ST segment elevation, no ST segment depression, no PACs, no PVCs Radiology Impression Discussion of test interpretation with radiology: I have reviewed the radiologist's reading. Radiologist Impression: XR chest 1V IMPRESSION: Unremarkable examination. Dictated By: Vj Collado MD CT head for stroke IMPRESSION: No acute intracranial pathology. This critical result was discussed with Itz Carbone at 2007 hours on 05/05/2023. It was ascertained that the content and urgency of the report was understood at the time of direct communication. Dictated By: Vj Collado MD Independent Historian Clinical information obtained from an independent historian. History obtained from or confirmed by: Other (Daughter and son-in-law) Prescription Management I considered prescription management with: Pain Medication Chronic Conditions Patient?s care impacted by: Hypertension and Other (Lewy body dementia, Parkinson's disease) Discharge Plan Discharge Clinical Impression: Diaphoresis, Change in behavior Patient Disposition: Home, Self-Care Additional Instructions: At this time, I do not have a clear cause for the sweats and change in his behavior. His chest x-ray CT scan of the brain did not reveal any significant abnormalities. His laboratory evaluation and urinalysis was also unremarkable. Continue giving his medications as prescribed by his providers. Use Voltaren arthritis topical gel 4 times a day as needed for pain in his left hip and left knee. Follow-up with your doctor in 2 days. Please return to the emergency department if your symptoms get worse or if you develop any symptoms that are concerning to you. Prescriptions: New diclofenac sodium [Voltaren Arthritis Pain] 1 % gel 4 g topical QID PRN (Reason: joint pain) Qty: 100 0RF Rx Instructions: apply to left hip and left knee joint No Action albuterol sulfate 90 mcg/actuation aerosol powdr breath activated 2 inh inhalation Q4-6H PRN (Reason: shortness of breath or wheezing) Qty: 1 0RF losartan 100 mg tablet 100 mg PO DAILY cyanocobalamin (vitamin B-12) 1,000 mcg Tablet 1,000 mcg PO DAILY amlodipine 5 mg Tablet 5 mg PO BEDTIME ascorbic acid (vitamin C) 500 mg Tablet 500 mg PO DAILY cholecalciferol (vitamin D3) 25 mcg (1,000 unit) Tablet 25 mcg PO DAILY ferrous sulfate 324 mg (65 mg iron) Tablet,Delayed Release (Dr/Ec) 324 mg PO BEDTIME carbidopa-levodopa 25-100 mg Tablet 1 tab PO TID Qty: 90 0RF
[2023-05-05 19:58] VITALS: BP 145/83; PULSE 65; O2SAT 96; BMI 31.8
[2023-05-05 20:13] LABS: MANUAL DIFF FLAG NO
[2023-05-05 20:14] LABS: Basophils Percent Auto 0.7 % (0-2); Eosinophils Absolute Auto 0.1 X10*3/uL (0.0-0.4); Eosinophils Percent Auto 1.7 % (0-4); Hemoglobin 13.3 g/dl (14.0-18.0); Imm Gran Abs Auto 0.01 X10*3/uL (0.00-0.03); Imm Gran Pct Auto 0.2 % (0.0-0.4); Lymphocytes Absolute Auto 1.3 X10*3/uL (1.2-4.9); Lymphocytes Percent Auto 21.1 % (20-40); Mean Corpuscular HGB Conc 33.3 g/dl (31.0-36.0); Mean Corpuscular Hemoglobin 28.2 pg (27.0-33.0); Mean Corpuscular Volume 84.9 fL (80.0-98.0); Mean Platelet Volume 9.6 fL (9.4-12.4); Monocytes Absolute Auto 0.4 X10*3/uL (0.1-1.2); Monocytes Percent Auto 6.5 % (2-11); Neutrophils Absolute Auto 4.2 x10*3/uL (2.0-8.3); Neutrophils Percent Auto 69.8 % (45-73); Platelet Count 216 X10*3/uL (160-400); Red Blood Count 4.71 X10*6/uL (4.60-5.80); Red Cell Distribution Width 14.2 % (11.0-16.0)
[2023-05-05 20:20] LABS: Prothrombin Time 12.7 SEC (11.1-13.3)
[2023-05-05 20:23] LABS: Partial Thromboplastin Time 25.7 SEC (26.0-36.8); Stroke Lab Use COMPLETE
[2023-05-05 20:27] VITALS: BP 139/83; PULSE 68; RESP 23; TEMP 36.4; O2SAT 95
[2023-05-05 20:41] LABS: Troponin-I High Sensitivity 4.2 ng/L (<3.5-35.0)
[2023-05-05 20:50] LABS: Prothrombin Time Whole Bld POC 14.1 sec (11.1-13.5); ~PT, ~INR - Anti Coag Clinic 1.2 (0.9-1.1)
[2023-05-05 20:51] LABS: Glucose, Whole Blood 108 mg/dL (60-115)
[2023-05-05 20:52] LABS: Alanine Aminotransferase 9 U/L (0-40); Albumin Level 3.7 g/dL (3.5-5.0); Alkaline Phosphatase 89 U/L (39-117); Anion Gap 11 (12-20); Aspartate Amino Transferase 17 U/L (5-37); Bilirubin Direct 0.1 mg/dL (0.0-0.5); Bilirubin Total 0.4 mg/dL (0.0-1.0); Blood Urea Nitrogen 20 mg/dL (9-16); Calcium 9.3 mg/dL (8.4-10.2); Carbon Dioxide 23 mmol/L (22-29); Chloride 109 mmol/L (96-108); Creatinine Clr Calc Pharmacy 75.7; Estimated Glomerular Filt Rate > 60; Ethanol < 10 mg/dL; Glucose Random 120 mg/dL (60-115); Magnesium 2.1 mg/dL (1.6-2.6); Potassium 4.4 mmol/L (3.3-5.1); Sodium 139 mmol/L (135-145)
[2023-05-05 22:39] LABS: Influenza A PCR NEGATIVE (Negative); Influenza B PCR NEGATIVE (Negative); Resp Syncy Virus RNA Qual PCR NEGATIVE (Negative); SARS COV2 PCR INHOUSE NEGATIVE (Negative)
[2023-05-05 22:47] LABS: Appearance Urine Clear; Color Urine Yellow; Glucose Urine UA Negative (Negative); Leukocyte Esterase Urine Negative (Negative); Nitrite Urine Negative (Negative); PH 6.5 (5.0-9.0); Urine Blood Negative (Negative); Urine Ketones Negative (Negative); Urine Protein Trace mg/dL (Neg-Trace)
--- NOTE | 2023-05-05 22:58 | PC.NURSE ---
bedside swallow eval performed by this rn pt reported feeling of difficulty while swallowing. dr capellan made aware pt failed swallow eval. per dr capellan plan for fluids is to attempt thickened liquids
[2023-05-05 23:21] VITALS: BP 137/84; PULSE 74; RESP 26; O2SAT 93
[2023-05-05 23:58] LABS: Troponin-I High Sensitivity 3.5 ng/L (<3.5-35.0)
[2023-05-06 00:35] VITALS: BP 127/73; PULSE 77; RESP 16; O2SAT 92
--- NOTE | 2023-05-06 01:00 | PC.NURSE ---
bilateral ivs removed from L and R arms. pt family at bedside for discharge pt and family provided with discharge packet verbalized understanding of discharge plan. pt utilized wheelchair to family car at discharge
== END 2023-05-06 01:04 | disposition home or self-care (01) ==
PROVIDERS: Emergency Provider Emergency Medicine Emergency Medical Services; PCP Student in an Organized Health Care Education/Training Program
DX: R41.82 Altered mental status, unspecified (principal); R61 Generalized hyperhidrosis; I10 Essential (primary) hypertension; G47.33 Obstructive sleep apnea (adult) (pediatric); G31.83 Neurocognitive disorder with Lewy bodies; F02.80 Dementia in other diseases classified elsewhere, unspecified severity, without behavioral disturbance, psychotic disturbance, mood disturbance, and anxiety; G20.A1 Parkinson's disease without dyskinesia, without mention of fluctuations; Z11.52 Encounter for screening for COVID-19; Z20.828 Contact with and (suspected) exposure to other viral communicable diseases; Z79.899 Other long term (current) drug therapy
CPT/HCPCS: 0241U; 36415; 70450; 71045; 80048; 80076; 80307; 81003; 82550; 82947; 83735; 84484; 85025; 85610; 85730; 93005; 99284; 99285

== ENCOUNTER → 2023-05-05 19:54 | Outpatient (BNV) | payer OTHER, SELFPAY | PROVIDERS: Emergency Provider Emergency Medicine Emergency Medical Services; PCP Student in an Organized Health Care Education/Training Program; Visit Provider Internal Medicine Cardiovascular Disease | DX: I44.0 Atrioventricular block, first degree (principal) | CPT/HCPCS: 93010 ==

== ENCOUNTER 2023-06-20 13:45 | Outpatient (AMB) | payer OTHER, SELFPAY ==
--- NOTE | 2023-06-20 13:49 | A.OFFVIS_ITS ---
Vital Signs 06/20/23 13:50 Height 5 ft 10 in BP 130/70 Blood Pressure Location Lt brachial Position Sitting Pulse 64 Pulse Source Pulse Oximeter Pulse Oximetry (%) 96 Oxygen Delivery Method Room Air Intake Visit Reasons: Shortness of breath Intake Note: pt is here as a new patient for shortness of breath, even with talking, he holds his breath when doing things. 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 Required: No Allergies Seasonal Allergies Allergy (Mild, Verified 06/20/23 14:31) sneezing, watery eyes Medication List - Last Reconciled 06/20/23 by Magali Frey MD albuterol sulfate 90 mcg/actuation 2 inhalations inhalation Q4-6H PRN amantadine HCl 100 mg PO BID amlodipine 10 mg PO BEDTIME ascorbic acid (vitamin C) 500 mg PO DAILY cetirizine 10 mg PO DAILY cholecalciferol (vitamin D3) 25 mcg PO DAILY cyanocobalamin (vitamin B-12) 1,000 mcg PO DAILY diclofenac sodium 1% (Voltaren Arthritis Pain) 4 grams topical QID PRN ferrous sulfate 324 mg PO BEDTIME losartan 50 mg PO DAILY Do you need a note to return to daycare/school/sports/work: No HPI HPI Shortness of breath: Details: This 78 -year-old male with a PMH significant for?HTN, pituitary tumor, JAYASHREE on CPAP, and hx of GI bleed who presents to the ED for evaluation generalized weakness, multiple falls, and altered mental status. ?Pt will be admitted to the hospital under observation This 78 years old gentleman is brought in today by his daughter, for pulmonary evaluation and also for ongoing management of his sleep apnea. 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 .He is a nonsmoker in the past He never had any chronic pulmonary disease. Now his main complaint as indicated by the daughter is that he gets short of breath sometime even at rest, without any explanation. He does not get any attacks of wheezing, also does not have more than normal amount of cough. His swallowing is somewhat slow but he has had no choking episodes. He has no significant respiratory infections. This gentleman has multiple medical problems including hypertension which is controlled, history of pituitary tumor in the past, history of obstructive sleep apnea and he has been using CPAP for the past few years. Has history of GI bleeding in the past. During the past 1 year he has had slow mobility, frequent falls, and slow speech. He was admitted here at [facility] in October 2022 after a few falls. He was seen by. Neurologist Dr. Garcia He was diagnosed to have parkinsonism/degenerative dementia, He was started on carbidopa-levodopa, but later on stopped and changed to amantadine 100 mg b.i.d.. Hypertension and cardiovascular issues are well controlled with the medication. Because of impaired locomotion he is mostly in the wheelchair, at home does walk around with Rollator walker. [facility] Medical History (Updated 06/20/23 @ 14:56 by Magali Frey MD) JAYASHREE on CPAP Mild bibasilar atelectasis DE LOS SANTOS (dyspnea on exertion) Dementia Physical deconditioning Frequent falls Seasonal allergies Hyperlipidemia Hypertension GI bleed Social History Alcohol intake: current Alcohol intake frequency: does not drink Patient Tobacco Use Status: Never used Tobacco Advance Directives Date on File: 11/16/22 service: No Review of Systems Const Details: Most of the information is provided by his daughter. And the information is basically same as stated up in the history of present illness. All systems reviewed & are unremarkable except as noted in HPI and below Physical Exam Vital Signs: Last Vital Signs Pulse 64 06/20/23 13:50 BP 130/70 06/20/23 13:50 Pulse Ox 96 06/20/23 13:50 Oxygen Delivery Method Room Air 06/20/23 13:50 Const General: comfortable, no acute distress, alert and awake (But slow in conversation) Orientation/consciousness: patient oriented x3 HEENT Head: Yes normal to inspection General nose exam: No nasal polyps present and No nasal discharge present Face and sinus: Yes sinuses nontender Mouth: oropharynx normal Throat: Yes posterior oropharynx normal Eyes General: appearance normal, both eyes and all related structures Neck Neck: Yes normal visual inspection, Yes no lymphadenopathy, Yes trachea midline and Yes no JVD Thyroid: Thyroid normal Chest Chest palpation & inspection: normal inspection of the chest, normal palpation of entire chest wall and no tenderness Resp Other: Percussion note is resonant. Breath sounds are equal. On both sides Breath sounds are slightly diminished over the lower lobe areas. However no adventitious sounds are heard. Cardio Palpation: normal PMI Rate: regular rate Rhythm: regular rhythm Heart sounds: no gallops and no murmurs GI Palpation (GI): Soft to palpation, Tenderness to palpation present (GI), No hepatosplenomegaly present and Palpable mass present Auscultation: normal bowel sounds Back/Spine/Pelvis Thoracic/Lumbar Spine: thoracic and lumbar spine normal to inspection Skin General skin exam: no rashes or lesions noted Neuro General: patient oriented x3, No gait normal (He is in the wheelchair not able to stand or walk due to his poor balance) and no focal motor deficits Cranial nerves: Yes CN's II-XII intact bilaterally and Yes Other cranial nerve findings present (There is no focal motor or sensory deficit however he has general weakness ) Extrem General: Yes normal to inspection, Yes no clubbing, cyanosis or edema and Yes no calf tenderness Psych Speech and movement: Normal speech and movement present Results Reviewed Results Reviewed: Records of his hospitalization at [facility] in October [address] scan of the chest on 11/15/22 IMPRESSION: 1. Bilateral lower lobe compressive atelectasis and minimal bibasilar scarring. 2. There is a 3 mm calcified nodule right upper lobe. No noncalcified pulmonary nodules seen. 3. No abnormal mediastinal or axillary lymphadenopathy. 4. Bilateral upper pole renal cysts. CHEST XRAY 05/05/23 AT [facility], REVIEWED AND WAS BASICALLY UNREM ARKABLE. 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 HIS DYSPNEA IS SOMETIME AT REST SOMETIME WITH EXERTION IS MILD, AND MOST LIKELY RELATED TO BIBASILAR ATELECTASIS. HE IS CANDIDATE OF GETTING BIBASILAR ATELECTASIS MAINLY DUE TO HYPOVENTILATION, . HE IS CANDIDATE HAVE RECURRENT PULMONARY ASPIRATIONS BUT SO FOR HE HAS BEEN WITHOUT THIS ISSUE. HE DOES HAVE OBSTRUCTIVE SLEEP APNEA WHICH IS BEING TREATED VERY WELL WITH THESE APPLICATION OF CPAP, ACCORDING TO HIS DAUGHTER HE IS VERY COMPLIANT AND SLEEPS WELL AT NIGHT. WE ARE TRYING TO GET THE INFORMATION ABOUT HER ORIGINAL SLEEP STUDY AND SETTINGS OF THE CPAP. AND WOULD PROVIDE INSTRUCTIONS NEEDED FOR CONTINUED. USE OF THE CPAP FOR PULMONARY EVALUATION, I DO NOT THINK HE CAN PERFORM ANY MEANINGFUL PULMONARY FUNCTION TEST. IMAGING REVIEWED FROM HIS PREVIOUS CT SCAN AND CHEST X-RAY IS STATED ABOVE. HE DOES NOT HAVE ANY SIGNIFICANT HYPOXEMIA AT THIS TIME. HAS A TREATMENT PLAN I HAVE STARTED HIM ON INCENTIVE SPIROMETRY, GIVEN FULL INSTRUCTIONS TO HIS DAUGHTER AND SHE WILL MAKE SURE THAT HE DOES BREATHING EXERCISES EVERY 2 HOURS WHILE AWAKE. SHE IS VERY SATISFIED WITH THIS INSTRUCTION. HE IS ADVISED TO CONTINUE USING THE CPAP HE IS AND WE WILL GET IN TOUCH WITH THE [employer], [facility], AND PROVIDE ONGOING SUPPORT. AT THIS POINT I WILL SEE HIM BACK IN 3 MONTHS FOR FOLLOW-UP. Coding Level of Care Code New Pt Level 4 (34276) Diagnoses Parkinsonism G20 DE LOS SANTOS (dyspnea on exertion) R06.09 Mild bibasilar atelectasis J98.11 JAYASHREE on CPAP G47.33
[2023-06-20 13:50] VITALS: BP 130/70; PULSE 64; O2SAT 96
== END 2023-06-20 14:23 | disposition home or self-care (01) ==
PROVIDERS: PCP Student in an Organized Health Care Education/Training Program; Visit Provider Internal Medicine
DX: G20.C Parkinsonism, unspecified (principal); R06.09 Other forms of dyspnea; J98.11 Atelectasis; G47.33 Obstructive sleep apnea (adult) (pediatric)
CPT/HCPCS: 99204

== ENCOUNTER → 2023-06-20 13:45 | Outpatient (BNVA) | payer OTHER, SELFPAY | PROVIDERS: PCP Student in an Organized Health Care Education/Training Program; Visit Provider Internal Medicine | DX: G20.A1 Parkinson's disease without dyskinesia, without mention of fluctuations (principal); G47.33 Obstructive sleep apnea (adult) (pediatric); R06.09 Other forms of dyspnea; J98.11 Atelectasis | CPT/HCPCS: 99202 ==

== ENCOUNTER 2023-08-13 17:50 | Emergency (ER) | payer OTHER, SELFPAY ==
--- NOTE | ~2023-08-13 | CT_ITS ---
EXAMINATION: CT HEAD WITHOUT CONTRAST CT CERVICAL SPINE WITHOUT CONTRAST CLINICAL INFORMATION: Fall. History of pituitary tumor. COMPARISON: CT head May 05, 2023. CT head and cervical spine July 26, 2022. CT head March 28, 2021 TECHNIQUE: Imaging was performed from the skull base to vertex without intravenous administration of contrast. In addition, helical noncontrast CT imaging was acquired through the cervical spine and source images were reviewed along with axial reconstructions and sagittal and coronal MPRs. [This CT examination was performed using dose optimization techniques as appropriate, variously including the following: *Automated exposure control *Adjustment of mA and/or kV according to patient size (this includes techniques or standardized protocols for targeted exams where dose is matched to indication/reason for exam; i.e. extremities or head) *Use of iterative reconstruction technique] DLP: 1343 mGy-cm FINDINGS: HEAD: No intracranial mass, hemorrhage, or midline shift is visualized. There is generalized global volume loss. There is mild prominence of the ventricles and the sulci . There is mild hypodensity of the periventricular white matter due to chronic small vessel ischemic disease. There are vascular calcifications of the internal carotid arteries bilaterally. No extra-axial collections are identified. Enlargement of the pituitary unchanged since CAT scan March 28, 2021. The paranasal sinuses and mastoid air cells are well aerated. CERVICAL SPINE: There is no evidence of acute cervical spine fracture. Vertebral bodies remain normal in height. Cervical vertebrae have normal alignment. There is multilevel degenerative spondylosis of the cervical spine with disc height narrowing and endplate spurs and facet joint arthrosis No pre- or paravertebral soft tissue abnormality is identified. Limited assessment of the lung apices is unremarkable. CT/CT cervical spine wo IV con IMPRESSION: 1. No acute intracranial pathology. 2. No CT evidence of acute cervical spine fracture or traumatic subluxation
[2023-08-13 17:59] VITALS: BP 157/89; BP 158/60; PULSE 70; PULSE 72; RESP 16; TEMP 36.9; O2SAT 96; O2SAT 97; BMI 31.5
--- NOTE | 2023-08-13 18:12 | ED.FALL ---
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 Last night patient suffered a mechanical fall which resulted in striking the back of his head without loss of consciousness, not on any chronic anticoagulation but daughter states that today he has been more drowsy than usual, has nausea without vomiting, and then the daughter states that there were a couple of episodes of patient appearing to stare through her but otherwise patient himself denies pain. Related Data Home Medications ?Medication ?Instructions ?Recorded ?Confirmed ascorbic acid (vitamin C) 500 mg 500 mg PO DAILY 11/15/22 06/20/23 tablet cholecalciferol (vitamin D3) 25 25 mcg PO DAILY 11/15/22 06/20/23 mcg (1,000 unit) tablet cyanocobalamin (vitamin B-12) 1,000 mcg PO DAILY 11/15/22 06/20/23 1,000 mcg tablet ferrous sulfate 324 mg (65 mg 324 mg PO BEDTIME 11/15/22 06/20/23 iron) tablet,delayed release amantadine HCl 100 mg tablet 100 mg PO BID 06/20/23 06/20/23 amlodipine 5 mg tablet 10 mg PO BEDTIME 06/20/23 06/20/23 cetirizine 10 mg tablet 10 mg PO DAILY 06/20/23 06/20/23 losartan 100 mg tablet 50 mg PO DAILY 06/20/23 06/20/23 Previous Rx's ?Medication ?Instructions ?Recorded albuterol sulfate 90 mcg/actuation 2 inh inhalation Q4-6H PRN 11/15/22 breath activated powder inhaler shortness of breath or wheezing #1 ea diclofenac sodium 1 % topical gel 4 g topical QID PRN joint pain 05/06/23 (Voltaren Arthritis Pain) #100 grams Allergies Allergy/AdvReac Type Severity Reaction Status Date / Time Seasonal Allergies Allergy Mild sneezing, Verified 08/13/23 18:10 watery eyes Review of Systems Review of Systems: Pertinent positives and negatives as stated in HPI PMF Past Medical History Source: nursing notes reviewed Medical History JAYASHREE on CPAP Mild bibasilar atelectasis DE LOS SANTOS (dyspnea on exertion) Dementia Physical deconditioning Frequent falls Seasonal allergies Hyperlipidemia Hypertension GI bleed Social History Social History Alcohol intake: current Alcohol intake frequency: does not drink Patient Tobacco Use Status: Never used Tobacco Advance Directives: Yes Advance Directives Information Provided: No Advance Directives on File: No Advance Directives Date on File: 11/16/22 Do you have a plan to hurt others: No Plan service: No Physical Exam Vital Signs: Vital Signs: Last Vital Signs Temp 98.4 F 08/13/23 17:59 Pulse 72 08/13/23 17:59 Resp 16 08/13/23 17:59 BP 157/89 H 08/13/23 17:59 Pulse Ox 96 08/13/23 17:59 O2 Del Method Room Air 08/13/23 17:59 BMI result Body Mass Index 31.5 VITAL SIGNS: Reviewed. GENERAL: Well developed, well nourished, in no acute distress. HEAD: Normocephalic/atraumatic EYES: PERRLA, EOMI EARS: Ext canals without abnormality NOSE: Nares patent bilateral OROPHARYNX: no oral lesions noted, posterior pharynx clear NECK: Supple, no adenopathy LUNGS: Normal breath sounds. No adventitious sounds or accessory muscle use. SpO2<96> CARDIOVASCULAR: Regular rate and rhythm without noted murmurs, no JVD or lower extremity edema. ABDOMEN: Soft, non-tender, non-distended with bowel sounds. MUSCULOSKELETAL: No tenderness, deformities, or effusions noted on gross inspection. EXTREMITIES: No cyanosis, clubbing or edema. SKIN: Inspection of the skin reveals no rashes NEUROLOGIC: Alert and oriented x 3. Strength and sensation to light touch were grossly intact x 4, no facial asymmetry, no pronator drift, cranial nerves 2-12 are grossly intact. Medical Decision Making Medical Decision Making MDM Narrative: 78-year-old male with history and clinical presentation, DDX: Concussion, will rule out intracranial hemorrhage/mass effect/cervical spine fracture or subluxation. No clinical suspicion at this time for underlying infectious etiology or arrhythmia. I reviewed imaging studies which are negative for intracranial hemorrhage or mass effect and cervical spine is negative for fracture or subluxation. Patient is otherwise discharged home and daughter was encouraged to follow-up with palliative care services which she states were already in place and may be discuss transition into hospice given the extent of patient's underlying medical condition of Lewy body dementia. I discussed at length patient's imaging findings, and provided alternatives for steps that the daughter can take for additional assistance within the home. She endorses to me that the family does not want patient be placed in a group home. Differential Diagnosis Differential Diagnoses: The differential diagnosis associated with the presentation includes Please see the discussion Admission/Observation Consideration of admission/observation: Escalation of care including admission/observation considered Please see the discussion above Radiology Impression Discussion of test interpretation with radiology: I have reviewed the radiologist's reading. Radiologist Impression: Please see the discussion above Critical Care Time Critical Care Time Critical Care Time: Yes Total Critical Care Time: 45 Attestation: I personally attest to this time spent taking care of the patient. Discharge Plan Discharge Clinical Impression: Generalized weakness, Fall, Concussion Patient Disposition: Home, Self-Care Instructions: Fall Prevention for Older Adults (ED), Weakness (ED) Additional Instructions: Do not hesitate to return to the emergency room for any worsening of symptoms Prescriptions: No Action albuterol sulfate 90 mcg/actuation aerosol powdr breath activated 2 inh inhalation Q4-6H PRN (Reason: shortness of breath or wheezing) Qty: 1 0RF cyanocobalamin (vitamin B-12) 1,000 mcg Tablet 1,000 mcg PO DAILY ascorbic acid (vitamin C) 500 mg Tablet 500 mg PO DAILY cholecalciferol (vitamin D3) 25 mcg (1,000 unit) Tablet 25 mcg PO DAILY ferrous sulfate 324 mg (65 mg iron) Tablet,Delayed Release (Dr/Ec) 324 mg PO BEDTIME amlodipine 5 mg tablet 10 mg PO BEDTIME losartan 100 mg tablet 50 mg PO DAILY diclofenac sodium [Voltaren Arthritis Pain] 1 % gel 4 g topical QID PRN (Reason: joint pain) Qty: 100 0RF Rx Instructions: apply to left hip and left knee joint amantadine HCl 100 mg tablet 100 mg PO BID cetirizine 10 mg tablet 10 mg PO DAILY Referrals: Jermaine Lao PA [Primary Care Provider] - Print Language: Pashto
--- OUTSIDE RECORDS SUMMARY | 2023-08-13 19:09 | XMS_ITS | Continuity of Care Document ---
Author Organization [facility] Address [address] [place] [address]- Care Team Providers Care Reticle Printer Name Role Phone Jermaine Sullivan Primary Care Physician [phone] Encounter [facility] Date(s): 08/09/22 - 09/08/22 [facility] [address] [place] [address]- Allergies, Adverse Reactions, Alerts No Known Allergies [...] tablet, By Mouth, Daily, # 90 tablet, 1 Refills, Maintenance, 09/01/22 9:55:00 EDT, [facility] #[id number], 175, cm, 06/12/22 14:35:00 EDT, Height Start Date: 09/01/22 Status: Ordered Bilateral Class I (20-30mmHg) Thigh-high Stockings Bilateral Class I (20-30mmHg) Thigh-high Stockings, See Instructions, # 2 kit, Refills 2, Tot. Refills 2, Maintenance, Dx: Use daily. On in a.m. off at bedtime, 08/15/22 10:21:00 EDT, Supply, 17... Start Date: 08/15/22 Status: Ordered cetirizine 10 mg oral tablet 1 tablet, By Mouth, Daily, # 30 tablet, 0 Refills, Maintenance, 04/10/22 10:11:00 EST, [facility] #[id number], 175, cm, 12/28/21 14:37:00 EDT, Height Start [...] 11/22/21 14:02:00 EDT, Route to Pharmacy Electronically, [facility] #[id number], Partial fill upon patient request if the [...] Height Start Date: 12/27/21 Status: Ordered losartan 100 mg oral tablet 1 tablet, By Mouth, Daily, # 90 tablet, 0 Refills, Maintenance, 08/15/22 10:39:00 EDT, [facility] #[id number], 175, cm, 06/12/22 14:35:00 EDT, Height Start Date: 08/15/22 Status: Ordered meclizine 25 mg oral tablet [...] Gm, 5 Refills, Maintenance, 06/12/22 15:02:00 EDT, [facility] #[id number], Partial fill upon patient request... Start Date: [...] Associate Professional Member Role: PCP Address: Address: [address] [place] [address] [place] [address]- Care Team Related Persons Name: MANUEL BRIDGES Address: home [address] [place] [address] Name: MANUEL BRIDGES Address: home [address] [place] [address] Name: MANUEL BRIDGES Address: home [address] [place] [address] Name: DAYNA CÁRDENAS Address: home [address] [place] [address] Name: DAYNA CÁRDENAS Address: home [address] [place] [address]
--- OUTSIDE RECORDS SUMMARY | 2023-08-13 19:09 | XMS_ITS | Continuity of Care Document ---
Author Organization [facility] Address [address] [place] [address]- Care Team Providers Care Shop Estimator Name Role Phone Jermaine Sullivan Primary Care Physician [phone] Encounter [facility] Date(s): 08/15/22 - 10/27/22 [facility] [address] [place] [address]- Attending Physician: Lionel CORDERO, Siobhan Hughes Allergies, [...] tablet, 1 Refills, Maintenance, 09/01/22 9:55:00 EDT, [facility] #[id number], 175, cm, 06/12/22 14:35:00 EDT, Height Start [...] tablet, By Mouth, Daily, # 30 tablet, 5 Refills, Maintenance, 10/18/22 11:11:00 EDT, [facility] #[id number], 175, cm, 10/08/22 15:02:00 EDT, Height Start Date: 10/18/22 Status: Ordered Colace sodium 100 mg oral capsule 100 mg, 1, capsule, By Mouth, 2 times a day, PRN, # 20 capsule, Refills 0, Maintenance, for constipation, 05/23/21 15:25:00 EDT, Partial fill upon patient request if the prescription is for a schedule II opioid drug. Start Date: 05/23/21 Status: Ordered Collagen 0 Refills, Maintenance, 10/08/22 15:09:00 EDT, Partial fill upon patient request if the prescription is for a schedule II opioid drug. Start Date: 10/08/22 Status: Ordered Disposable Liner/Shield/Pad/Undergarmet Disposable Liner/Shield/Pad/Undergarmet, See Instructions, # 156 each, Refills 5, Tot. Refills 5, Maintenance, R32, 05/19/22 17:00:00 EDT, Supply Start Date: 05/19/22 Status: Ordered ferrous sulfate 325 mg oral enteric coated tablet 325 mg, 1, tablet, By Mouth, Daily, # 90 tablet, Refills 3, Tot. Refills 3, Maintenance, 11/22/21 14:02:00 EDT, Route to Pharmacy Electronically, [facility] #[id number], Partial fill upon patient request if the prescription is for a schedule II o... Start Date: 11/22/21 Status: Ordered Fish Oil By Mouth, 0 Refills, Maintenance, 10/08/22 15:08:00 EDT, Partial fill upon patient request if the prescription is for a schedule II opioid drug. Start Date: 10/08/22 Status: Ordered Glucosamine Chondroitin By Mouth, Daily, [...] tablet, 0 Refills, Maintenance, 08/15/22 10:39:00 EDT, [facility] #[id number], 175, cm, 06/12/22 14:35:00 EDT, Height Start Date: 08/15/22 Status: Ordered Magnesium Citrate By Mouth, 0 Refills, Maintenance, 10/08/22 15:09:00 EDT, Partial fill upon patient request if the prescription is for a schedule II opioid drug. Start Date: 10/08/22 Status: Ordered meclizine 25 mg oral tablet [...] Gm, 5 Refills, Maintenance, 06/12/22 15:02:00 EDT, [facility] #[id number], Partial fill upon patient request... Start Date: [...] EDT, Supply Start Date: 06/03/21 Status: Ordered Salonpas Gel-Patch Topically, 3 times a day, 0 Refills, Maintenance, 10/08/22 15:09:00 EDT, Partial fill upon patient request if the prescription is for a schedule II opioid drug. Start Date: 10/08/22 Status: Ordered Vitamin D2 By Mouth, 0 Refills, Maintenance, 10/08/22 15:08:00 EDT, Partial fill upon patient request if the prescription is for a schedule II opioid drug. Start Date: 10/08/22 Status: Ordered Problem List Condition Confirmation Course [...] Care Team Personnel Name: Jermaine Sullivan Position: [facility] Associate Professional Member Role: PCP Address: Address: [address] [place] [address]- Care Team Related Persons Name: MANUEL BRIDGES Address: home [address] [place] [id number] Name: MANUEL BRIDGES Address: home [address] [place] [address] Name: MANUEL BRIDGES Address: [address] [place] [address] Name: DAYNA CÁRDENAS Address: home [address] [place] [address] Name: DAYNA CÁRDENAS Address: home [address] [place] [address]
--- OUTSIDE RECORDS SUMMARY | 2023-08-13 19:09 | XMS_ITS | Continuity of Care Document ---
Author Organization [facility] Primary Car e Cheng Address [address] [place] [address]- Care Team Providers Care Program Project Manager Name Role Phone Jermaine Sullivan Primary Care Physician [phone] Encounter [facility] Date(s): 11/16/22 - 12/29/22 [facility] Care Cheng [address] [place] [address]- Attending Physician: Lionel CORDERO, Siobhan Hughes Allergies, [...] tablet, 1 Refills, Maintenance, 09/01/22 9:55:00 EDT, [facility] #[id number], 175, cm, 06/12/22 14:35:00 EDT, Height Start [...] tablet, 5 Refills, Maintenance, 10/18/22 11:11:00 EDT, [facility] #[id number], 175, cm, 10/08/22 15:02:00 EDT, Height Start Date: 10/18/22 Status: Ordered Disposable Liner/Shield/Pad/Undergarmet Disposable Liner/Shield/Pad/Undergarmet, See Instructions, # 156 each, Refills 5, Tot. Refills 5, Maintenance, R32, 05/19/22 17:00:00 EDT, Supply Start Date: 05/19/22 Status: Ordered Disposable Pads (chux) Disposable Pads (chux), See Instructions, # 150 each, Refills 5, Tot. Refills 5, Maintenance, uses five per day Dx: R32, M48.00, M17.9, R60.0, 12/14/22 11:31:00 EDT, Supply Start Date: 12/14/22 Status: Ordered ferrous sulfate 325 mg oral enteric coated tablet 1, tablet, By Mouth, Daily, # 90 tablet, Refills 0, Maintenance, 12/04/22 10:35:00 EDT, Route to Pharmacy Electronically, [facility] #[id number], 175, cm, 11/29/22 14:11:00 EDT, Height Start Date: 12/04/22 Status: Ordered Fish Oil By Mouth, 0 Refills, Maintenance, 10/08/22 15:08:00 EDT, Partial fill upon patient request if the prescription is for a schedule II opioid drug. Start Date: 10/08/22 Status: Ordered [place] Belt [place] Belt, See Instructions, # 1 each, Refills 0, Tot. Refills 0, Maintenance, use as directed DX: M48.00, M17.90, R42, 11/07/22 13:55:00 EDT, Supply Start Date: 11/07/22 Status: Ordered Glucosamine Chondroitin By Mouth, Daily, 0 Refills, Maintenance, 05/23/21 15:26:00 EDT, Partial fill upon patient request if the prescription is for a schedule II opioid drug. Start Date: 05/23/21 Status: Ordered Large Overnight Pull Ups Large Overnight Pull Ups, See Instructions, # 30 each, Refills 11, Tot. Refills 11, Maintenance, use on at bedtime Dx: R32, 11/14/22 11:17:00 EDT, Supply Start Date: 11/14/22 Status: Ordered lidocaine 1.8% topical film 1 patch, Topically, Daily, leave on up to 12 hours, # 30 each, 0 Refills, Maintenance, 11/14/22 11:39:00 EDT, Film, [facility] #[id number], Partial fill upon patient request if the prescription is for a schedule II opioid drug., 1 patch Topically... Start Date: 11/14/22 Status: Ordered losartan 100 mg oral tablet 1 tablet, By Mouth, Daily, # 90 tablet, 0 Refills, Maintenance, 10/31/22 14:33:00 EDT, [facility] #[id number], 175, cm, 10/08/22 15:02:00 EDT, Height Start Date: 10/31/22 Status: Ordered Magnesium Citrate By Mouth, 0 Refills, Maintenance, 10/08/22 15:09:00 EDT, Partial fill upon patient request if the prescription is for a schedule II opioid drug. Start Date: 10/08/22 Status: Ordered Male Guard Male Guard, See Instructions, PRN Pain , Severe, # 150 each, Refills 5, Tot. Refills 5, Maintenance, uses 5 per day Dx: R32, M48.00, M17.9, R60.0, 12/14/22 11:29:00 EDT, Supply Start Date: 12/14/22 Status: Ordered Male Incontinence Pads Male Incontinence Pads, See Instructions, # 120 each, Refills 11, Tot. Refills 11, Maintenance, Use4 a day/120 per month Dx: R32, 11/14/22 11:15:00 EDT, Supply Start Date: 11/14/22 Status: Ordered meclizine 25 mg oral tablet [...] EDT, Supply Start Date: 05/19/22 Status: Ordered Pull ups Size large Pull ups Size large, See Instructions, # 120 each, Refills 5, Tot. Refills 5, Maintenance, Use fourdaily Dx: R32, M48.00, M17.9, R60.0, 12/14/22 11:32:00 EDT, Supply Start Date: 12/14/22 Status: Ordered ROLLATOR ROLLATOR, See Instructions, # [...] opioid drug. Start Date: 10/08/22 Status: Ordered Transport Wheelchair Transport Wheelchair, See Instructions, # 1 each, Refills 0, Tot. Refills 0, Maintenance, use as directed/needed DX: M48.00, M17.90, R42, 11/07/22 13:56:00 EDT, Supply Start Date: 11/07/22 Status: Ordered Vitamin D2 By Mouth, 0 Refills, Maintenance, 10/08/22 15:08:00 EDT, Partial fill upon patient request if the prescription is for a schedule II opioid drug. Start Date: 10/08/22 Status: Ordered Wipes Wipes, See Instructions, # 2 pack/packet, Refills 5, Tot. Refills 5, Maintenance, uses 2 packs per month Dx: R32, M48.00, M17.9, R60.0, 12/14/22 11:31:00 EDT, Supply Start Date: 12/14/22 Status: Ordered Problem List Condition Confirmation Course Effective Dates Status H ealth Status Informant Bilateral leg edema Confirmed Active HLD (hyperlipidemia) Confirmed Active Hypertension Confirmed Active Obese class I Confirmed Active Knee osteoarthritis Confirmed Active Spinal stenosis Confirmed Active Urinary incontinence Confirmed Active Vertigo Confirmed Active Social History Social History Type Response Smoking Status Never (less than 100 in lifetime) entered on: 3/28/22 Sex Patient Care team information Care Team Personnel Name: Jermaine Sullivan Position: [facility] Associate Professional Member Role: PCP Address: Address: [address] [place] [address] [place] [address]- Care Team Related Persons Name: MANUEL BRIDGES Address: home [address] [place] [address] Name: MANUEL BRIDGES Address: home [address] [place] [address] Name: MANUEL BRIDGES Address: home [address] [place] [address] Name: DAYNA CÁRDENAS Address: home [address] [place] [address] Name: DAYNA CÁRDENAS Address: home [address] [place] [address]
--- OUTSIDE RECORDS SUMMARY | 2023-08-13 19:09 | XMS_ITS | Continuity of Care Document ---
Author Organization [facility] Address [address] [place] [address]- Care Team Providers Care Digital Marketing Analyst Name Role Phone Jermaine Sullivan Primary Care Physician [phone] Encounter [facility] Date(s): 10/08/22 - 10/15/22 [facility] [address] [place] [address]- Encounter Diagnosis Thumb pain(Discharge Diagnosis) - 10/08/22 Attending Physician: Tara Xavier MD Referring Physician: Jermaine Sullivan Allergies, Adverse [...] tablet, 1 Refills, Maintenance, 09/01/22 9:55:00 EDT, [facility] #[id number], 175, cm, 06/12/22 14:35:00 EDT, Height Start [...] tablet, 0 Refills, Maintenance, 04/10/22 10:11:00 EST, [facility] #[id number], 175, cm, 12/28/21 14:37:00 EDT, Height Start [...] 11/22/21 14:02:00 EDT, Route to Pharmacy Electronically, [facility] #[id number], Partial fill upon patient request if the [...] tablet, 0 Refills, Maintenance, 08/15/22 10:39:00 EDT, [facility] #[id number], 175, cm, 06/12/22 14:35:00 EDT, Height Start [...] Gm, 5 Refills, Maintenance, 06/12/22 15:02:00 EDT, [facility] #[id number], Partial fill upon patient request... 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 Thumb pain Discharge Diagnosis 10/08/22 Vital Signs Most recent to oldest [Reference Range]: 1 Height 175 cm (10/08/22 3:02 PM) Oxygen Saturation [94-100 %] 97 % (10/08/22 3:02 PM) Pulse Rate [55-90 bpm] 61 bpm (10/08/22 3:02 PM) Blood Pressure [90-138/55-84 mm Hg] 132/ 79mm Hg (10/08/22 3:02 PM) Respiratory Rate [16-30 br/min] 20 br/mi n (10/08/22 3:02 PM) Temperature [96.8-100.4 DegF] 98.5 DegF (10/08/22 3:02 PM) Blood pressure sites Arm, right (10/08/22 3:02 PM) Temperature Route Temporal (10/08/22 3:02 PM) Social History Social History Type Response Smoking Status Never (less than 100 in lifetime) entered on: 05/23/21 Sex Patient Care team information Care Team Personnel Name: Jermaine Sullivan Position: [facility] Associate Professional Member Role: PCP Address: Address: [address] [place] [address] [place] [address]- Care Team Related Persons Name: MANUEL BRIDGES Address: home [address] [place] [address] Name: MANUEL BRIDGES Address: home [address] [place] [address] Name: MANUEL BRIDGES Address: home [address] [place] [address] Name: DAYNA CÁRDENAS Address: [address] [place] [address] Name: DAYNA CÁRDENAS Address: home [address] [place] [address]
--- OUTSIDE RECORDS SUMMARY | 2023-08-13 19:09 | XMS_ITS | Continuity of Care Document ---
Author Organization [facility] Primary Car e Cheng Address [address] [place] [address]- Care Team Providers Care Java Analyst Name Role Phone Jermaine Sullivan Primary Care Physician Encounter [facility] Date(s): 05/25/23 - 06/24/23 [facility] Care Cheng [address] [place] [address]- Allergies, Adverse Reactions, Alerts No Known Allergies Immunizations Given and Recorded Vaccine Date Status Refusal Reason tetanus/diphtheria/pertussis, acel(Tdap) 12/02/21 Recorded Medications acetaminophen 325 mg oral capsule See Instructions, 2 tabs daily prn, 0 Refills, Maintenance, 12/27/21 16:49:00 EDT, Partial fill upon patient request if the prescription is for a schedule II opioid drug. Start Date: 12/27/21 Status: Ordered amantadine 100 mg oral tablet TAKE 1 TABLET BY MOUTH TWICE DAILY Start Date: 02/09/23 Status: Ordered amLODIPine 10 mg oral tablet 1 tablet, By Mouth, Daily, # 90 tablet, 1 Refills, Maintenance, 09/01/22 9:55:00 EDT, [facility] #[id number], 175, cm, 06/12/22 14:35:00 EDT, Height Start [...] tablet, 5 Refills, Maintenance, 10/18/22 11:11:00 EDT, [facility] #[id number], 175, cm, 10/08/22 15:02:00 EDT, Height Start Date: 10/18/22 Status: Ordered CleanCut walk-in tub conversion kit CleanCut walk-in tub conversion kit, See Instructions, # 1 each, Refills 0, Tot. Refills 0, Maintenance, use daily Dx: M48.00, M17.9, G31.83, 06/06/23 12:46:00 EDT, Supply Start Date: 06/06/23 Status: Ordered Disposable Liner/Shield/Pad/Undergarmet Disposable Liner/Shield/Pad/Undergarmet, See [...] sulfate 325 mg oral enteric coated tablet See Instructions, 1 tablet By Mouth three times a week, # 30 each, Refills 0, Tot. Refills 0, Maintenance, 01/10/23 16:19:00 EST, Instructions Replace Required Details, Route to Pharmacy Electronically, [facility] #[id number], 175, cm, 01/10/23 1... Start Date: 01/10/23 Status: Ordered [place] Belt [place] Belt, See Instructions, # 1 each, Refills [...] Refills 11, Tot. Refills 11, Maintenance, use one at bedtime Dx: R32, 05/25/23 11:34:00 EDT, Supply, 175, cm, 02/09/23 17:29:00 EST, Height Start Date: 05/25/23 Status: Ordered lidocaine 1.8% topical film 1 patch, Topically, Daily, leave on up to 12 hours, # 30 each, 0 Refills, Maintenance, 05/25/23 20:44:00 EDT, Film, [facility] #[id number], Partial fill upon patient request if the prescription is for a schedule II opioid drug., 1 patch Topically... Start Date: 05/25/23 Status: Ordered losartan 100 mg oral tablet 1 tablet, By Mouth, Daily, # 90 tablet, 0 Refills, Maintenance, 06/13/23 7:35:00 EDT, [facility] #[id number], 175, cm, 02/09/23 17:29:00 EST, Height Start Date: 06/13/23 Status: Ordered Male Guard Male Guard, See [...] opioid drug. Start Date: 05/23/21 Status: Ordered Powersear Lift Chair Powersear Lift Chair, See Instructions, # 1 each, Refills 0, Tot. Refills 0, Maintenance, use as directed Dx: M48.00, 01/17/23 14:05:00 EST, Supply Start Date: 01/17/23 Status: Ordered Protective Underwear/Pull-on, Large Protective Underwear/Pull-on, [...] EDT, Supply Start Date: 06/03/21 Status: Ordered Stair lift Stair lift, See Instructions, # 1 each, Refills 0, Tot. Refills 0, Maintenance, DX: M48.00, M17.90,R42, 04/30/23 12:43:00 EST, Supply Start Date: 04/30/23 Status: Ordered Transport Wheelchair Transport Wheelchair, See Instructions, # 1 each, Refills 0, Tot. Refills 0, Maintenance, use as directed/needed DX: M48.00, M17.90, R42, 11/07/22 13:56:00 EDT, Supply Start Date: 11/07/22 Status: Ordered Vitamin D2 By Mouth, 0 Refills, Maintenance, 10/08/22 15:08:00 EDT, Partial fill upon patient request if the prescription is for a schedule II opioid drug. Start Date: 10/08/22 Status: Ordered Wheelchair Ramp Wheelchair Ramp, See Instructions, # 1 each, Refills 0, Tot. Refills 0, Maintenance, to be installed dx: G31.83, M17.9, M48.00, 05/16/23 18:16:00 EDT, Supply Start Date: 05/16/23 Status: Ordered Wipes Wipes, See Instructions, # [...] I Confirmed Active Knee osteoarthritis Confirmed Active Lewy body disease Confirmed Active Spinal stenosis Confirmed Active Urinary incontinence Confirmed Active Vertigo Confirmed Active Social History Social History Type Response Smoking Status Never (less than 100 in lifetime) entered on: 05/23/21 Sex Patient Care team information Care Team Personnel Name: Jermaine Sullivan Position: S PCO Associate Professional Member Role: PCP Address: Address: [address] [place] [address]- Care Team Related Persons Name: MANUEL BRIDGES Address: home [address] [place] [address] Name: MANUEL BRIDGES Address: [address] [place] [address] Name: MANUEL BRIDGES Address: [address] [place] [address] Name: DAYNA CÁRDENAS Address: [address] [place] [address] Name: DAYNA CÁRDENAS Address: [address] [place] [address]
--- OUTSIDE RECORDS SUMMARY | 2023-08-13 19:09 | XMS_ITS | Continuity of Care Document ---
Author Organization [facility] Primary Car e Cheng Address [address] [place] [address]- Care Team Providers Care Animal [place] Code Enforcement Officer Name Role Phone Jermaine Sullivan Primary Care Physician [phone] Encounter [facility] Date(s): 05/25/23 - 06/24/23 [facility] Care Cheng [address] [place] [address]- Allergies, Adverse Reactions, Alerts No Known Allergies [...] tablet, 1 Refills, Maintenance, 09/01/22 9:55:00 EDT, [facility] #[id number], 175, cm, 06/12/22 14:35:00 EDT, Height Start [...] tablet, 5 Refills, Maintenance, 10/18/22 11:11:00 EDT, [facility] #[id number], 175, cm, 10/08/22 15:02:00 EDT, Height Start [...] Replace Required Details, Route to Pharmacy Electronically, [facility] #[id number], 175, cm, 01/10/23 1... Start Date: 01/10/23 Status: Ordered [place] Belt [place] Belt, See Instructions, # 1 each, Refills [...] 0 Refills, Maintenance, 05/25/23 20:44:00 EDT, Film, [facility] #[id number], Partial fill upon patient request if the prescription is for a schedule II opioid drug., 1 patch Topically... Start Date: 05/25/23 Status: Ordered losartan 100 mg oral tablet 1 tablet, By Mouth, Daily, # 90 tablet, 0 Refills, Maintenance, 06/13/23 7:35:00 EDT, [facility] #[id number], 175, cm, 02/09/23 17:29:00 EST, Height Start [...] Associate Professional Member Role: PCP Address: Address: [address] [place] [address]- Care Team Related Persons Name: MANUEL BRIDGES Address: home [address] [place] [address] Name: MANUEL BRIDGES Address: home [address] [place] [address] Name: MANUEL BRIDGES Address: [address] [place] [address] Name: DAYNA CÁRDENAS Address: [address] [place] [address] Name: DAYNA CÁRDENAS Address: [address] [place] [address]
--- OUTSIDE RECORDS SUMMARY | 2023-08-13 19:09 | XMS_ITS | Continuity of Care Document ---
Author Organization [facility] Primary Car e Cheng Address [address] [place] [address]- Care Team Providers Care Media/Instructional Designer Name Role Phone Jermaine Sullivan Primary Care Physician Encounter [facility] Date(s): 09/28/22 - 10/28/22 [facility] Care Cheng [address] [place] [address]- Allergies, Adverse Reactions, Alerts No Known Allergies [...] tablet, 1 Refills, Maintenance, 09/01/22 9:55:00 EDT, [facility] #[id number], 175, cm, 06/12/22 14:35:00 EDT, Height Start [...] tablet, 5 Refills, Maintenance, 10/18/22 11:11:00 EDT, [facility] #[id number], 175, cm, 10/08/22 15:02:00 EDT, Height Start [...] 11/22/21 14:02:00 EDT, Route to Pharmacy Electronically, [facility] #[id number], Partial fill upon patient request if the [...] tablet, 0 Refills, Maintenance, 08/15/22 10:39:00 EDT, [facility] #39691, 175, cm, 06/12/22 14:35:00 EDT, Height Start [...] Gm, 5 Refills, Maintenance, 06/12/22 15:02:00 EDT, [facility] #[id number], Partial fill upon patient request... Start Date: [...] Care Team Personnel Name: Jermaine Sullivan Position: [facility] PCO Associate Professional Member Role: PCP Address: Address: [address] [place] [address] Care Team Related Persons Name: MANUEL BRIDGES Address: home [address] [address] Name: MANUEL BRIDGES Address: home [address] [place] [address] Name: MANUEL BRIDGES Address: home [address] [place] [address] Name: DAYNA CÁRDENAS Address: home [address] [place] [address] Name: DAYNA CÁRDENAS Address: home [address] [place] [address]
--- OUTSIDE RECORDS SUMMARY | 2023-08-13 19:09 | XMS_ITS | Continuity of Care Document ---
Author Organization [facility] Primary Car e Cheng Address [address] [place] [address]- Care Team Providers Care Buyer Tobacco Head Name Role Phone Jermaine Sullivan Primary Care Physician [phone] Encounter [facility] Date(s): 12/08/22 - 01/07/23 [facility] Primary Care Cheng [address] [place] [address]- Allergies, Adverse Reactions, Alerts No Known Allergies [...] tablet, 1 Refills, Maintenance, 09/01/22 9:55:00 EDT, [facility] #[id number], 175, cm, 06/12/22 14:35:00 EDT, Height Start [...] tablet, 5 Refills, Maintenance, 10/18/22 11:11:00 EDT, [facility] #[id number], 175, cm, 10/08/22 15:02:00 EDT, Height Start [...] 12/04/22 10:35:00 EDT, Route to Pharmacy Electronically, [facility] #[id number], 175, cm, 11/29/22 14:11:00 EDT, Height Start Date: 12/04/22 Status: Ordered Fish Oil By Mouth, 0 Refills, Maintenance, 10/08/22 15:08:00 EDT, Partial fill upon patient request if the prescription is for a schedule II opioid drug. Start Date: 10/08/22 Status: Ordered Berkeley Belt Berkeley Belt, See Instructions, # 1 each, Refills [...] 0 Refills, Maintenance, 11/14/22 11:39:00 EDT, Film, [facility] #[id number], Partial fill upon patient request if the prescription is for a schedule II opioid drug., 1 patch Topically... Start Date: 11/14/22 Status: Ordered losartan 100 mg oral tablet 1 tablet, By Mouth, Daily, # 90 tablet, 0 Refills, Maintenance, 10/31/22 14:33:00 EDT, [facility] #[id number], 175, cm, 10/08/22 15:02:00 EDT, Height Start [...] Associate Professional Member Role: PCP Address: Address: [address] [place] [address] [place] [address]- Care Team Related Persons Name: MANUEL BRIDGES Address: home [address] [place] [address] Name: MANUEL RBIDGES Address: home [address] [place] [address] Name: MANUEL BRIDGES Address: [address] [place] [address] Name: DAYNA CÁRDENAS Address: [address] [place] [address] Name: DAYNA CÁRDENAS Address: [address] [place] [address]
--- OUTSIDE RECORDS SUMMARY | 2023-08-13 19:09 | XMS_ITS | Continuity of Care Document ---
Author Organization [facility] Primary Car e Cheng Address [address] [place] [address]- Care Team Providers Care Pressing Department Supervisor Name Role Phone Jermaine Sullivan Primary Care Physician [phone] Encounter [facility] Date(s): 05/23/23 - 06/22/23 [facility] Care Cheng [address] [place] [address]- Allergies, Adverse Reactions, Alerts No Known Allergies [...] tablet, 1 Refills, Maintenance, 09/01/22 9:55:00 EDT, [facility] #[id number], 175, cm, 06/12/22 14:35:00 EDT, Height Start [...] tablet, 5 Refills, Maintenance, 10/18/22 11:11:00 EDT, [facility] #[id number], 175, cm, 10/08/22 15:02:00 EDT, Height Start [...] Replace Required Details, Route to Pharmacy Electronically, [facility] #[id number], 175, cm, 01/10/23 1... Start Date: 01/10/23 Status: Ordered [place] Belt White[place] Belt, See Instructions, # 1 each, Refills [...] 0 Refills, Maintenance, 05/25/23 20:44:00 EDT, Film, [facility] #[id number], Partial fill upon patient request if the prescription is for a schedule II opioid drug., 1 patch Topically... Start Date: 05/25/23 Status: Ordered losartan 100 mg oral tablet 1 tablet, By Mouth, Daily, # 90 tablet, 0 Refills, Maintenance, 06/13/23 7:35:00 EDT, [facility] #69763, 175, cm, 02/09/23 17:29:00 EST, Height Start [...] Professional Member Role: PCP Address: Address: [address] [place] [address] [place] [address]- Care Team Related Persons Name: MANUEL BRIDGES Address: home [address] [place] [address] Name: MANUEL BRIDGES Address: [address] [place] [address] Name: MANUEL BRIDGES Address: [address] [place] [address] Name: DAYNA CÁRDENAS Address: [address] [place] [address] Name: DAYNA CÁRDENAS Address: [address] [place] [address]
--- OUTSIDE RECORDS SUMMARY | 2023-08-13 19:09 | XMS_ITS | Continuity of Care Document ---
Author Organization [facility] Primary Car e Cheng Address [address] [place] [address]- Care Team Providers Care Personnel Records Clerk Name Role Phone Jermaine Sullivan Primary Care Physician [phone] Encounter [facility] Date(s): 11/14/22 - 12/14/22 [facility] Care Cheng [address] [place] [address]- Allergies, Adverse Reactions, Alerts No Known Allergies [...] tablet, 1 Refills, Maintenance, 09/01/22 9:55:00 EDT, [facility] #[id number], 175, cm, 06/12/22 14:35:00 EDT, Height Start [...] tablet, 5 Refills, Maintenance, 10/18/22 11:11:00 EDT, [facility] #[id number], 175, cm, 10/08/22 15:02:00 EDT, Height Start [...] 12/04/22 10:35:00 EDT, Route to Pharmacy Electronically, [facility] #[id number], 175, cm, 11/29/22 14:11:00 EDT, Height Start Date: 12/04/22 Status: Ordered Fish Oil By Mouth, 0 Refills, Maintenance, 10/08/22 15:08:00 EDT, Partial fill upon patient request if the prescription is for a schedule II opioid drug. Start Date: 10/08/22 Status: Ordered [place] Belt [place] Belt, See Instructions, # 1 each, Refills [...] 0 Refills, Maintenance, 11/14/22 11:39:00 EDT, Film, [facility] #[id number], Partial fill upon patient request if the prescription is for a schedule II opioid drug., 1 patch Topically... Start Date: 11/14/22 Status: Ordered losartan 100 mg oral tablet 1 tablet, By Mouth, Daily, # 90 tablet, 0 Refills, Maintenance, 10/31/22 14:33:00 EDT, [facility] #[id number], 175, cm, 10/08/22 15:02:00 EDT, Height Start [...] Associate Professional Member Role: PCP Address: Address: [address] [place] [address] [place] [address]- Care Team Related Persons Name: MANUEL BRIDGES Address: home [address] [place] [address] Name: MANUEL BRIDGES Address: home [address] [place] [address] Name: MANUEL BRIDGES Address: home [address] [place] [address] Name: DAYNA CÁRDENAS Address: [address] [place] [address] Name: DAYNA CÁRDENAS Address: home [address] [place] [address]
--- OUTSIDE RECORDS SUMMARY | 2023-08-13 19:09 | XMS_ITS | Continuity of Care Document ---
Author Organization [facility] Primary Car e Cheng Address [address] [place] [address]- Care Team Providers Care Technical Producer Name Role Phone Jermaine Sullivan Primary Care Physician [phone] Encounter [facility] Date(s): 05/25/23 - 06/24/23 [facility] Care Cheng [address] [place] [address]- Allergies, Adverse Reactions, Alerts No Known Allergies [...] tablet, 1 Refills, Maintenance, 09/01/22 9:55:00 EDT, [facility] #[id number], 175, cm, 06/12/22 14:35:00 EDT, Height Start [...] tablet, 5 Refills, Maintenance, 10/18/22 11:11:00 EDT, [facility] #[id number], 175, cm, 10/08/22 15:02:00 EDT, Height Start [...] Replace Required Details, Route to Pharmacy Electronically, [facility] #[id number], 175, cm, 01/10/23 1... Start Date: 01/10/23 Status: Ordered O'Kean Belt O'Kean Belt, See Instructions, # 1 each, Refills [...] 0 Refills, Maintenance, 05/25/23 20:44:00 EDT, Film, [facility] #[id number], Partial fill upon patient request if the prescription is for a schedule II opioid drug., 1 patch Topically... Start Date: 05/25/23 Status: Ordered losartan 100 mg oral tablet 1 tablet, By Mouth, Daily, # 90 tablet, 0 Refills, Maintenance, 06/13/23 7:35:00 EDT, [facility] #[id number], 175, cm, 02/09/23 17:29:00 EST, Height Start [...] Associate Professional Member Role: PCP Address: Address: [address] [place] [address]- Care Team Related Persons Name: MANUEL BRIDGES Address: home [address] [place] [address] Name: MANUEL BRIDGES Address: home [address] [place] [address] Name: MANUEL BRIDGES Address: home [address] [place] [address] Name: DAYNA CÁRDENAS Address: home [address] [place] [address] Name: DAYNA CÁRDENAS Address: home [address] [place] [address]
--- OUTSIDE RECORDS SUMMARY | 2023-08-13 19:09 | XMS_ITS | Continuity of Care Document ---
Author Organization [facility] Primary Car e Cheng Address [address] [place] [address]- Care Team Providers Care Slag Skimmer Name Role Phone Jermaine Sullivan Primary Care Physician Encounter [facility] Date(s): 11/09/22 - 12/09/22 [facility] Care Cheng [address] [place] [address]- Allergies, Adverse Reactions, Alerts No Known Allergies [...] tablet, 1 Refills, Maintenance, 09/01/22 9:55:00 EDT, [facility] #[id number], 175, cm, 06/12/22 14:35:00 EDT, Height Start [...] tablet, 5 Refills, Maintenance, 10/18/22 11:11:00 EDT, [facility] #[id number], 175, cm, 10/08/22 15:02:00 EDT, Height Start Date: 10/18/22 Status: Ordered Disposable Liner/Shield/Pad/Undergarmet Disposable Liner/Shield/Pad/Undergarmet, See Instructions, # 156 each, Refills 5, Tot. Refills 5, Maintenance, R32, 05/19/22 17:00:00 EDT, Supply Start Date: 05/19/22 Status: Ordered ferrous sulfate 325 mg oral enteric coated tablet 1, tablet, By Mouth, Daily, # 90 tablet, Refills 0, Maintenance, 12/04/22 10:35:00 EDT, Route to Pharmacy Electronically, [facility] #[id number], 175, cm, 11/29/22 14:11:00 EDT, Height Start Date: 12/04/22 Status: Ordered Fish Oil By Mouth, 0 Refills, Maintenance, 10/08/22 15:08:00 EDT, Partial fill upon patient request if the prescription is for a schedule II opioid drug. Start Date: 10/08/22 Status: Ordered Hatfield Belt Hatfield Belt, See Instructions, # 1 each, Refills [...] 0 Refills, Maintenance, 11/14/22 11:39:00 EDT, Film, [facility] #[id number], Partial fill upon patient request if the prescription is for a schedule II opioid drug., 1 patch Topically... Start Date: 11/14/22 Status: Ordered losartan 100 mg oral tablet 1 tablet, By Mouth, Daily, # 90 tablet, 0 Refills, Maintenance, 10/31/22 14:33:00 EDT[id number], 175, cm, 10/08/22 15:02:00 EDT, Height Start Date: 10/31/22 Status: Ordered Magnesium Citrate By Mouth, 0 Refills, Maintenance, 10/08/22 15:09:00 EDT, Partial fill upon patient request if the prescription is for a schedule II opioid drug. Start Date: 10/08/22 Status: Ordered Male Incontinence Pads Male Incontinence [...] a schedule II opioid drug. Start Date: 8/13/23 Status: Ordered Transport Wheelchair Transport Wheelchair, See [...] Care Team Personnel Name: Jermaine Sullivan Position: [facility] PCO Associate Professional Member Role: PCP Address: Address: [address] [place] [address] [place] [address]- Care Team Related Persons Name: MANUEL BRIDGES Address: home [address] [place] [address] Name: MANUEL BRIDGES Address: home [address] [place] [address] Name: MANUEL BRIDGES Address: home [address] [facility] [address] [place] [address] Name: DAYNA CÁRDENAS Address: home [address] [place] [address] Name: DAYNA CÁRDENAS Address: home [address] [place] [address]
--- OUTSIDE RECORDS SUMMARY | 2023-08-13 19:09 | XMS_ITS | Continuity of Care Document ---
Author Organization [facility] Primary Car e Cheng Address [address] [place] [address]- Care Team Providers Care Fertilizing Machine Operator Name Role Phone Jermaine Sullivan Primary Care Physician Encounter [facility] Date(s): 06/13/23 - 07/13/23 [facility] Primary Care Cheng [address] [place] [address]- Allergies, Adverse Reactions, Alerts No Known Allergies [...] tablet, 1 Refills, Maintenance, 09/01/22 9:55:00 EDT, [facility] #[id number], 175, cm, 06/12/22 14:35:00 EDT, Height Start [...] tablet, 5 Refills, Maintenance, 10/18/22 11:11:00 EDT, [facility] #[id number], 175, cm, 10/08/22 15:02:00 EDT, Height Start [...] Replace Required Details, Route to Pharmacy Electronically, [facility] #74006, 175, cm, 01/10/23 1... Start Date: 01/10/23 Status: Ordered [place] Belt [place] Belt, See Instructions, # 1 each, Refills [...] 0 Refills, Maintenance, 05/25/23 20:44:00 EDT, Film, [facility] #[id number], Partial fill upon patient request if the prescription is for a schedule II opioid drug., 1 patch Topically... Start Date: 05/25/23 Status: Ordered losartan 100 mg oral tablet 1 tablet, By Mouth, Daily, # 90 tablet, 0 Refills, Maintenance, 06/13/23 7:35:00 EDT, [facility] #[id number], 175, cm, 02/09/23 17:29:00 EST, Height Start [...] Associate Professional Member Role: PCP Address: Address: [address] [place] [address] [place] [address]- Care Team Related Persons Name: MANUEL BRIDGES Address: home [address] [place] [address] Name: MANUEL BRIDGES Address: home [address] [place] [address] Name: MANUEL BRIDGES Address: home [address] [place] [address] Name: DAYNA CÁRDENAS Address: home [address] [place] [address] Name: DAYNA CÁRDENAS Address: home [address] [place] [address]
--- OUTSIDE RECORDS SUMMARY | 2023-08-13 19:09 | XMS_ITS | Continuity of Care Document ---
Author Organization [facility] Primary Car e Cheng Address [address] [place] [address]- Care Team Providers Care Director Medical Safety Name Role Phone Jermaine Sullivan Primary Care Physician [phone] [facility] Date(s): 10/03/22 - 01/05/23 [facility] Primary Care Cheng [address] [place] [address]- Attending Physician: Jermaine Sullivan Allergies, Adverse Reactions, [...] tablet, 1 Refills, Maintenance, 09/01/22 9:55:00 EDT, [facility] #[id number], 175, cm, 06/12/22 14:35:00 EDT, Height Start [...] tablet, 5 Refills, Maintenance, 10/18/22 11:11:00 EDT, [facility] #[id number], 175, cm, 10/08/22 15:02:00 EDT, Height Start [...] 12/04/22 10:35:00 EDT, Route to Pharmacy Electronically, [facility] #[id number], 175, cm, 11/29/22 14:11:00 EDT, Height Start Date: 12/04/22 Status: Ordered Fish Oil By Mouth, 0 Refills, Maintenance, 10/08/22 15:08:00 EDT, Partial fill upon patient request if the prescription is for a schedule II opioid drug. Start Date: 10/08/22 Status: Ordered [place] Belt [place] Belt, See Instructions, # 1 each, Refills [...] 0 Refills, Maintenance, 11/14/22 11:39:00 EDT, Film, [facility] #[id number], Partial fill upon patient request if the prescription is for a schedule II opioid drug., 1 patch Topically... Start Date: 11/14/22 Status: Ordered losartan 100 mg oral tablet 1 tablet, By Mouth, Daily, # 90 tablet, 0 Refills, Maintenance, 10/31/22 14:33:00 EDT, [facility] #[id number], 175, cm, 10/08/22 15:02:00 EDT, Height Start [...] Professional Member Role: PCP Address: Address: [address] [place] [address] [address]- Care Team Related Persons Name: MANUEL BRIDGES Address: home [address] [place] [address] Name: MANUEL BRIDGES Address: home [address] [place] [address] Name: MANUEL BRIDGES Address: home [address] [place] [address] Name: DAYNA CÁRDENAS Address: [address] [place] [address] Name: DAYNA CÁRDENAS Address: home [address] [place] [address]
--- OUTSIDE RECORDS SUMMARY | 2023-08-13 19:09 | XMS_ITS | Continuity of Care Document ---
Author Organization [facility] Primary Car e Cheng Address [address] [place] [address]- Care Team Providers Care K 12 Principal Name Role Phone Jermaine Sullivan Primary Care Physician Encounter [facility] Date(s): 12/08/22 - 01/07/23 [facility] Primary Care Cheng [address] [place] [address]- Allergies, Adverse Reactions, Alerts No Known Allergies [...] tablet, 1 Refills, Maintenance, 09/01/22 9:55:00 EDT, [facility] #[id number], 175, cm, 06/12/22 14:35:00 EDT, Height Start [...] tablet, 5 Refills, Maintenance, 10/18/22 11:11:00 EDT, [facility] #63063, 175, cm, 10/08/22 15:02:00 EDT, Height Start [...] 12/04/22 10:35:00 EDT, Route to Pharmacy Electronically, [facility] #[id number], 175, cm, 11/29/22 14:11:00 EDT, Height Start Date: 12/04/22 Status: Ordered Fish Oil By Mouth, 0 Refills, Maintenance, 10/08/22 15:08:00 EDT, Partial fill upon patient request if the prescription is for a schedule II opioid drug. Start Date: 10/08/22 Status: Ordered [place] Belt Moscow Belt, See Instructions, # 1 each, Refills [...] 0 Refills, Maintenance, 11/14/22 11:39:00 EDT, Film, [facility] #[id number], Partial fill upon patient request if the prescription is for a schedule II opioid drug., 1 patch Topically... Start Date: 11/14/22 Status: Ordered losartan 100 mg oral tablet 1 tablet, By Mouth, Daily, # 90 tablet, 0 Refills, Maintenance, 10/31/22 14:33:00 EDT, [facility] #[id number], 175, cm, 10/08/22 15:02:00 EDT, Height Start [...] Associate Professional Member Role: PCP Address: Address: [address] [place] [address] [place] [address]- Care Team Related Persons Name: MANUEL BRIDGES Address: home [address] [place] [address] Name: MANUEL BRIDGES Address: home [address] [place] [address] Name: MANUEL BRIDGES Address: [address] [place] [address] Name: DAYNA CÁRDENAS Address: [address] [place] [address] Name: DAYNA CÁRDENAS Address: home [address] [place] [address]
--- OUTSIDE RECORDS SUMMARY | 2023-08-13 19:09 | XMS_ITS | Continuity of Care Document ---
Author Organization [facility] Primary Car e Cheng Address [address] [place] [address]- Care Team Providers Care Pond Supervisor Name Role Phone Jermaine Sullivan Primary Care Physician Encounter [facility] Date(s): 02/15/23 - 03/17/23 [facility] Care Cheng [address] [place] [address]- Allergies, Adverse Reactions, Alerts No Known Allergies [...] tablet, 1 Refills, Maintenance, 09/01/22 9:55:00 EDT, [facility] #[id number], 175, cm, 06/12/22 14:35:00 EDT, Height Start [...] tablet, 5 Refills, Maintenance, 10/18/22 11:11:00 EDT, [facility] #[id number], 175, cm, 10/08/22 15:02:00 EDT, Height Start [...] Mouth, Daily, # 90 tablet, Refills 0, Tot. Refills 0, Maintenance, 01/10/23 16:19:00 EST, Route to Pharmacy Electronically, [facility] #[id number], 175, cm, 01/10/23 14:58:00 EST, Height Start Date: 01/10/23 Status: Ordered Fish Oil By Mouth, 0 Refills, Maintenance, 10/08/22 15:08:00 EDT, Partial fill upon patient request if the prescription is for a schedule II opioid drug. Start Date: 10/08/22 Status: Ordered [place] Belt [place] Belt, See Instructions, # 1 each, Refills [...] 0 Refills, Maintenance, 11/14/22 11:39:00 EDT, Film, [facility] #[id number], Partial fill upon patient request if the prescription is for a schedule II opioid drug., 1 patch Topically... Start Date: 11/14/22 Status: Ordered losartan 100 mg oral tablet 1 tablet, By Mouth, Daily, # 90 tablet, 0 Refills, Maintenance, 10/31/22 14:33:00 EDT, [facility] #[id number], 175, cm, 10/08/22 15:02:00 EDT, Height Start [...] Associate Professional Member Role: PCP Address: Address: [address] [place] [address]- Care Team Related Persons Name: MANUEL BRIDGES Address: home [address] [place] [address] Name: MANUEL BRIDGES Address: home [address] [place] [address] Name: MANUEL BRIDGES Address: home [address] [place] [address] Name: DAYNA CÁRDENAS Address: [address] [place] [address] Name: DAYNA CÁRDENAS Address: home [address] [place] [address]
--- OUTSIDE RECORDS SUMMARY | 2023-08-13 19:09 | XMS_ITS | Continuity of Care Document ---
Author Organization [facility] Primary Car e Cheng Address [address] [place] [address]- Care Team Providers Care Potato Chip Frier Name Role Phone Jermaine Sullivan Primary Care Physician [phone] Encounter [facility] Date(s): 09/04/22 - 10/04/22 [facility] Care Cheng [address] [place] [address]- Allergies, Adverse Reactions, Alerts No Known Allergies [...] tablet, 1 Refills, Maintenance, 09/01/22 9:55:00 EDT, [facility] #[id number], 175, cm, 06/12/22 14:35:00 EDT, Height Start [...] tablet, 0 Refills, Maintenance, 04/10/22 10:11:00 EST, [facility] #[id number], 175, cm, 12/28/21 14:37:00 EDT, Height Start [...] 11/22/21 14:02:00 EDT, Route to Pharmacy Electronically, [facility] #[id number], Partial fill upon patient request if the [...] tablet, 0 Refills, Maintenance, 08/15/22 10:39:00 EDT, [facility] #[id number], 175, cm, 06/12/22 14:35:00 EDT, Height Start [...] Gm, 5 Refills, Maintenance, 06/12/22 15:02:00 EDT, [facility] #[id number], Partial fill upon patient request... Start Date: [...] Professional Member Role: PCP Address: Address: [address] [place] [address] [address]- Care Team Related Persons Name: MANUEL BRIDGES Address: [address] [place] [address] Name: MANUEL BRIDGES Address: home [address] [place] [address] Name: MANUEL BRIDGES Address: [address] [place] [address] Name: DAYNA CÁRDENAS Address: [address] [place] [address] Name: DAYNA CÁRDENAS Address: [address] [place] [address]
--- OUTSIDE RECORDS SUMMARY | 2023-08-13 19:09 | XMS_ITS | Continuity of Care Document ---
Author Organization [facility] Primary Car e Cheng Address [address] [place] [address]- Care Team Providers Care Game Design Instructor Name Role Phone Jermaine Sullivan Primary Care Physician Encounter [facility] Date(s): 04/30/23 - 05/30/23 [facility] Primary Care Cheng [address] [place] [address]- Allergies, Adverse Reactions, Alerts No Known Allergies [...] tablet, 1 Refills, Maintenance, 09/01/22 9:55:00 EDT, [facility] #75557, 175, cm, 06/12/22 14:35:00 EDT, Height Start [...] tablet, 5 Refills, Maintenance, 10/18/22 11:11:00 EDT, [facility][id number], 175, cm, 10/08/22 15:02:00 EDT, Height Start [...] 01/10/23 16:19:00 EST, Route to Pharmacy Electronically, [facility] #[id number], 175, cm, 01/10/23 14:58:00 EST, Height Start Date: 01/10/23 Status: Ordered Fish Oil By Mouth, 0 Refills, Maintenance, 10/08/22 15:08:00 EDT, Partial fill upon patient request if the prescription is for a schedule II opioid drug. Start Date: 10/08/22 Status: Ordered [place] Belt [place] Belt, See Instructions, # 1 each, Refills [...] 0 Refills, Maintenance, 05/25/23 20:44:00 EDT, Film, [facility] #[id number], Partial fill upon patient request if the prescription is for a schedule II opioid drug., 1 patch Topically... Start Date: 05/25/23 Status: Ordered losartan 100 mg oral tablet 1 tablet, By Mouth, Daily, # 90 tablet, 0 Refills, Maintenance, 10/31/22 14:33:00 EDT, [facility] #[id number], 175, cm, 10/08/22 15:02:00 EDT, Height Start [...] Supply Start Date: 06/03/21 Status: Ordered Salonpas Gel patch Salonpas Gel patch, See Instructions, # 30 each, Refills 0, Tot. Refills 0, Maintenance, use daily prn pain, 05/29/23 13:50:00 EDT, [facility], 175, cm, 02/09/23 17:29:00 EST, Height Start Date: 05/29/23 Status: Ordered Stair lift Stair lift, See [...] Care Team Personnel Name: Jermaine Sullivan Position: [facility] PCO Associate Professional Member Role: PCP Address: Address: [address] [place] [address]- Care Team Related Persons Name: MANUEL BRIDGES Address: [address] [place] [address] Name: MANUEL BRIDGES Address: [address] [place] [address] Name: MANUEL BRIDGES Address: home [address] [place] [address] Name: DAYNA CÁRDENAS Address: [address] [place] [address] Name: DAYNA CÁRDENAS Address: [address] [place] [address]
--- OUTSIDE RECORDS SUMMARY | 2023-08-13 19:09 | XMS_ITS | Continuity of Care Document ---
Author Organization [facility] Primary Car e Cheng Address [address] [place] [address]- Care Team Providers Care Kiln Worker Name Role Phone Jermaine Sullivan Primary Care Physician [phone] Encounter [facility] Date(s): 08/09/22 - 09/08/22 [facility] Care Cheng [address] [place] [address]- Allergies, Adverse Reactions, Alerts No Known Allergies [...] tablet, 1 Refills, Maintenance, 09/01/22 9:55:00 EDT, [facility] #[id number], 175, cm, 06/12/22 14:35:00 EDT, Height Start [...] tablet, 0 Refills, Maintenance, 04/10/22 10:11:00 EST, [facility] #[id number], 175, cm, 12/28/21 14:37:00 EDT, Height Start [...] 11/22/21 14:02:00 EDT, Route to Pharmacy Electronically, [facility] #[id number], Partial fill upon patient request if the [...] tablet, 0 Refills, Maintenance, 08/15/22 10:39:00 EDT, [facility] #30520, 175, cm, 06/12/22 14:35:00 EDT, Height Start [...] Gm, 5 Refills, Maintenance, 06/12/22 15:02:00 EDT, [facility] #06731, Partial fill upon patient request... Start Date: [...] Associate Professional Member Role: PCP Address: Address: [address] [place] [address] [place] [address]- Care Team Related Persons Name: MANUEL BRIDGES Address: home [address] [place] [address] Name: MANUEL BRIDGES Address: home [address] [place] [address] Name: MANUEL BRIDGES Address: [address] [place] [address] Name: DAYNA CÁRDENAS Address: [address] [place] [address] Name: DAYNA CÁRDENAS Address: [address] [place] [address]
--- OUTSIDE RECORDS SUMMARY | 2023-08-13 19:09 | XMS_ITS | Continuity of Care Document ---
Author Organization [facility] Primary Car e Cheng Address [address] [place] [address]- Care Team Providers Care Railway Track Plant Operator Name Role Phone Jermaine Sullivan Primary Care Physician Encounter [facility] Date(s): 05/22/23 - 06/21/23 [facility] Care Cheng [address] [place] [address]- Allergies, Adverse Reactions, Alerts No Known Allergies [...] tablet, 1 Refills, Maintenance, 09/01/22 9:55:00 EDT, [facility] #[id number], 175, cm, 06/12/22 14:35:00 EDT, Height Start [...] tablet, 5 Refills, Maintenance, 10/18/22 11:11:00 EDT, [facility] #16613, 175, cm, 10/08/22 15:02:00 EDT, Height Start [...] Replace Required Details, Route to Pharmacy Electronically, [facility] #49194, 175, cm, 01/10/23 1... Start Date: 01/10/23 Status: Ordered Bland Belt Bland Belt, See Instructions, # 1 each, Refills [...] 0 Refills, Maintenance, 05/25/23 20:44:00 EDT, Film, [facility] #[id number], Partial fill upon patient request if the prescription is for a schedule II opioid drug., 1 patch Topically... Start Date: 05/25/23 Status: Ordered losartan 100 mg oral tablet 1 tablet, By Mouth, Daily, # 90 tablet, 0 Refills, Maintenance, 06/13/23 7:35:00 EDT, [facility] #63841, 175, cm, 02/09/23 17:29:00 EST, Height Start [...] Associate Professional Member Role: PCP Address: Address: [address] [place] [address]- Care Team Related Persons Name: MANUEL BRIDGES Address: home [address] [place] [address] Name: MANUEL BRIDGES Address: [address] [place] [address] Name: MANUEL BRIDGES Address: [address] [place] [address] Name: DAYNA CÁRDENAS Address: [address] [place] [address] Name: DAYNA CÁRDENAS Address: [address] [place] [address]
--- OUTSIDE RECORDS SUMMARY | 2023-08-13 19:09 | XMS_ITS | Continuity of Care Document ---
Author Organization [facility] Primary Car e Cheng Address [address] [place] [address]- Care Team Providers Care Welding Setter Name Role Phone Jermaine Sullivan Primary Care Physician Encounter [facility] Date(s): 05/15/23 - 06/14/23 [facility] Primary Care Cheng [address] [place] [address]- Allergies, Adverse Reactions, Alerts No Known Allergies [...] tablet, 1 Refills, Maintenance, 09/01/22 9:55:00 EDT, [facility] #[id number], 175, cm, 06/12/22 14:35:00 EDT, Height Start [...] tablet, 5 Refills, Maintenance, 10/18/22 11:11:00 EDT, [facility] #[id number], 175, cm, 10/08/22 15:02:00 EDT, Height Start [...] Replace Required Details, Route to Pharmacy Electronically, [facility] #[id number], 175, cm, 01/10/23 1... Start Date: 01/10/23 Status: Ordered [place] Belt [place] Belt, See Instructions, # 1 each, Refills [...] 0 Refills, Maintenance, 05/25/23 20:44:00 EDT, Film, [facility] #[id number], Partial fill upon patient request if the prescription is for a schedule II opioid drug., 1 patch Topically... Start Date: 05/25/23 Status: Ordered losartan 100 mg oral tablet 1 tablet, By Mouth, Daily, # 90 tablet, 0 Refills, Maintenance, 06/13/23 7:35:00 EDT, [facility] #[id number], 175, cm, 02/09/23 17:29:00 EST, Height Start [...] Associate Professional Member Role: PCP Address: Address: [address] [place] [address] [place] [address]- Care Team Related Persons Name: MANUEL BRIDGES Address: home [address] [facility] [address] [place] [address] Name: MANUEL BRIDGES Address: [address] [place] [address] Name: MANUEL BRIDGES Address: [address] [place] [address] Name: DAYNA CÁRDENAS Address: [address] [place] [address] Name: DAYNA CÁRDENAS Address: [address] [place] [address]
--- OUTSIDE RECORDS SUMMARY | 2023-08-13 19:10 | XMS_ITS | Continuity of Care Document ---
Author Organization [facility] Primary Car e Cheng Address [address] [place] [address]- Care Team Providers Care Complaint Evaluation Supervisor Name Role Phone Jermaine Sullivan Primary Care Physician [phone] Encounter [facility] Date(s): 10/31/22 - 11/30/22 [facility] Care Cheng [address] [place] [address]- Allergies, Adverse Reactions, Alerts No Known Allergies [...] tablet, 1 Refills, Maintenance, 09/01/22 9:55:00 EDT, [facility] #[id number], 175, cm, 06/12/22 14:35:00 EDT, Height Start [...] tablet, 5 Refills, Maintenance, 10/18/22 11:11:00 EDT, [facility] #[id number], 175, cm, 10/08/22 15:02:00 EDT, Height Start Date: 10/18/22 Status: Ordered Disposable Liner/Shield/Pad/Undergarmet Disposable Liner/Shield/Pad/Undergarmet, See Instructions, # 156 each, Refills 5, Tot. Refills 5, Maintenance, R32, 05/19/22 17:00:00 EDT, Supply Start Date: 05/19/22 Status: Ordered Fish Oil By Mouth, 0 Refills, Maintenance, 10/08/22 15:08:00 EDT, Partial fill upon patient request if the prescription is for a schedule II opioid drug. Start Date: 10/08/22 Status: Ordered Porterville Belt Porterville Belt, See Instructions, # 1 each, Refills [...] 0 Refills, Maintenance, 11/14/22 11:39:00 EDT, Film, [facility] #[id number], Partial fill upon patient request if the prescription is for a schedule II opioid drug., 1 patch Topically... Start Date: 11/14/22 Status: Ordered losartan 100 mg oral tablet 1 tablet, By Mouth, Daily, # 90 tablet, 0 Refills, Maintenance, 10/31/22 14:33:00 EDT, [facility] #[id number], 175, cm, 10/08/22 15:02:00 EDT, Height Start [...] Associate Professional Member Role: PCP Address: Address: [address] [place] [address]- Care Team Related Persons Name: MANUEL BRIDGES Address: home [address] [place] [address] Name: MANUEL BRIDGES Address: home [address] [place] [address] Name: MANUEL BRIDGES Address: home [address] [place] [address] Name: DAYNA CÁRDENAS Address: home [address] [place] [address] Name: DAYNA CÁRDENAS Address: home [address] [place] [address]
--- OUTSIDE RECORDS SUMMARY | 2023-08-13 19:10 | XMS_ITS | Continuity of Care Document ---
Author Organization [facility] Primary Car e Cheng Address [address] [place] [address]- Care Team Providers Care Grant Administrator Name Role Phone Jermaine Sullivan Primary Care Physician Encounter [facility] Date(s): 04/19/23 - 05/19/23 [facility] Care Cheng [address] [place] [address]- Allergies, Adverse Reactions, Alerts No Known Allergies [...] tablet, 1 Refills, Maintenance, 09/01/22 9:55:00 EDT, [facility] #[id number], 175, cm, 06/12/22 14:35:00 EDT, Height Start [...] tablet, 5 Refills, Maintenance, 10/18/22 11:11:00 EDT, [facility] #[id number], 175, cm, 10/08/22 15:02:00 EDT, Height Start [...] 01/10/23 16:19:00 EST, Route to Pharmacy Electronically, [facility] #[id number], 175, cm, 01/10/23 14:58:00 EST, Height Start Date: 01/10/23 Status: Ordered Fish Oil By Mouth, 0 Refills, Maintenance, 10/08/22 15:08:00 EDT, Partial fill upon patient request if the prescription is for a schedule II opioid drug. Start Date: 10/08/22 Status: Ordered Albion Belt Albion Belt, See Instructions, # 1 each, Refills [...] 0 Refills, Maintenance, 11/14/22 11:39:00 EDT, Film, [facility] #[id number], Partial fill upon patient request if the prescription is for a schedule II opioid drug., 1 patch Topically... Start Date: 11/14/22 Status: Ordered losartan 100 mg oral tablet 1 tablet, By Mouth, Daily, # 90 tablet, 0 Refills, Maintenance, 10/31/22 14:33:00 EDT, [facility] #[id number], 175, cm, 10/08/22 15:02:00 EDT, Height Start [...] opioid drug. Start Date: 10/08/22 Status: Ordered Stair lift Stair lift, See [...] Care Team Personnel Name: Jermaine Sullivan Position: [facility] PCO Associate Professional Member Role: PCP Address: Address: [address] [place] [address] [place] [address]- Care Team Related Persons Name: MANUEL BRIDGES Address: home [address] [place] [address] Name: MANUEL BRIDGES Address: home [address] [place] [address] Name: MANUEL BRIDGES Address: home [address] [place] [address] Name: DAYNA CÁRDENAS Address: home [address] [place] [address] Name: DAYNA CÁRDENAS Address: home [address] [place] [address]
--- OUTSIDE RECORDS SUMMARY | 2023-08-13 19:10 | XMS_ITS | Continuity of Care Document ---
Author Organization [facility] [place] Address [address] [place] [address]- Care Team Providers Care Gateman Name Role Phone Jermaine Sullivan Primary Care Physician [phone] Encounter [facility] Date(s): 03/30/23 - 07/28/23 [facility] [address] [place], [place] [address] Attending Physician: Amadou Quintanilla MD Referring Physician: Jermaine Sullivan Allergies, Adverse [...] tablet, 1 Refills, Maintenance, 09/01/22 9:55:00 EDT, [facility] #[id number], 175, cm, 06/12/22 14:35:00 EDT, Height Start [...] tablet, 5 Refills, Maintenance, 10/18/22 11:11:00 EDT, [facility] #[id number], 175, cm, 10/08/22 15:02:00 EDT, Height Start [...] Replace Required Details, Route to Pharmacy Electronically, [facility] #[id number], 175, cm, 01/10/23 1... Start Date: 01/10/23 Status: Ordered Baxley Belt Baxley Belt, See Instructions, # 1 each, Refills [...] 0 Refills, Maintenance, 05/25/23 20:44:00 EDT, Film, [facility] #[id number], Partial fill upon patient request if the prescription is for a schedule II opioid drug., 1 patch Topically... Start Date: 05/25/23 Status: Ordered losartan 100 mg oral tablet 1 tablet, By Mouth, Daily, # 90 tablet, 0 Refills, Maintenance, 06/13/23 7:35:00 EDT, [facility] #[id number], 175, cm, 02/09/23 17:29:00 EST, Height Start [...] EST, Supply Start Date: 04/30/23 Status: Ordered Standard Pole Standard Pole, See Instructions, # 1 each, Refills 0, Tot. Refills 0, Maintenance, to be used for bathroom transfers dx: M48.00, M17.9, G31.83 fax # [phone], 07/25/23 15:30:00 EDT, Supply Start Date: 07/25/23 Status: Ordered Transport Wheelchair Transport Wheelchair, See [...] Associate Professional Member Role: PCP Address: Address: [address] [place] [address]- Care Team Related Persons Name: MANUEL BRIDGES Address: home [address] [place] [address] Name: MANUEL BRIDGES Address: home [address] [place] [address] Name: MANUEL BRIDGES Address: home [address] [place] [address] Name: DAYNA CÁRDENAS Address: home [address] [place] [address] Name: DAYNA CÁRDENAS Address: home [address] [place] [address]
--- OUTSIDE RECORDS SUMMARY | 2023-08-13 19:10 | XMS_ITS | Continuity of Care Document ---
Author Organization [facility] Primary Car e Cheng Address [address] [place] [address]- Care Team Providers Care Ice Guard Inspector Name Role Phone Jermaine Sullivan Primary Care Physician [phone] Encounter [facility] Date(s): 11/13/22 - 12/13/22 [facility] [address] [place] [address]- Allergies, Adverse Reactions, Alerts No Known Allergies [...] tablet, 1 Refills, Maintenance, 09/01/22 9:55:00 EDT, [facility] #[id number], 175, cm, 06/12/22 14:35:00 EDT, Height Start [...] tablet, 5 Refills, Maintenance, 10/18/22 11:11:00 EDT, [facility] #[id number], 175, cm, 10/08/22 15:02:00 EDT, Height Start Date: 10/18/22 Status: Ordered Disposable Liner/Shield/Pad/Undergarmet Disposable Liner/Shield/Pad/Undergarmet, See Instructions, # 156 each, Refills 5, Tot. Refills 5, Maintenance, R32, 05/19/22 17:00:00 EDT, Supply Start Date: 05/19/22 Status: Ordered ferrous sulfate 325 mg oral enteric coated tablet 1, tablet, By Mouth, Daily, # 90 tablet, Refills 0, Maintenance, 12/04/22 10:35:00 EDT, Route to Pharmacy Electronically, [facility] #[id number], 175, cm, 11/29/22 14:11:00 EDT, Height Start Date: 12/04/22 Status: Ordered Fish Oil By Mouth, 0 Refills, Maintenance, 10/08/22 15:08:00 EDT, Partial fill upon patient request if the prescription is for a schedule II opioid drug. Start Date: 10/08/22 Status: Ordered Fenton Belt Fenton Belt, See Instructions, # 1 each, Refills [...] 0 Refills, Maintenance, 11/14/22 11:39:00 EDT, Film, [facility] #[id number], Partial fill upon patient request if the prescription is for a schedule II opioid drug., 1 patch Topically... Start Date: 11/14/22 Status: Ordered losartan 100 mg oral tablet 1 tablet, By Mouth, Daily, # 90 tablet, 0 Refills, Maintenance, 10/31/22 14:33:00 EDT, [facility] #[id number], 175, cm, 10/08/22 15:02:00 EDT, Height Start [...] Professional Member Role: PCP Address: Address: [address] [place] [address] [place] [address]- Care Team Related Persons Name: MANUEL BRIDGES Address: home [address] [place] [address] Name: MANUEL BRIDGES Address: home [address] [place] [address] Name: MANUEL BRIDGES Address: home [address] [place] [address] Name: DAYNA CÁRDENAS Address: home [address] [place] [address] Name: DAYNA CÁRDENAS Address: home [address] [place] [address]
--- OUTSIDE RECORDS SUMMARY | 2023-08-13 19:10 | XMS_ITS | Continuity of Care Document ---
Author Organization [facility] Primary Car e Cheng Address [address] [place] [address]- Care Team Providers Care Dental Assistant Instructor Name Role Phone Jermaine Sullivan Primary Care Physician Encounter [facility] Date(s): 11/21/22 - 12/21/22 [facility] Care Cheng [address] [place] [address]- Allergies, Adverse Reactions, Alerts No Known Allergies [...] tablet, 1 Refills, Maintenance, 09/01/22 9:55:00 EDT, [facility] #[id number], 175, cm, 06/12/22 14:35:00 EDT, Height Start [...] tablet, 5 Refills, Maintenance, 10/18/22 11:11:00 EDT, [facility] #69794, 175, cm, 10/08/22 15:02:00 EDT, Height Start [...] 12/04/22 10:35:00 EDT, Route to Pharmacy Electronically, [facility] #[id number], 175, cm, 11/29/22 14:11:00 EDT, Height Start Date: 12/04/22 Status: Ordered Fish Oil By Mouth, 0 Refills, Maintenance, 10/08/22 15:08:00 EDT, Partial fill upon patient request if the prescription is for a schedule II opioid drug. Start Date: 10/08/22 Status: Ordered Cayuga Belt Cayuga Belt, See Instructions, # 1 each, Refills [...] 0 Refills, Maintenance, 11/14/22 11:39:00 EDT, Film, [facility] #[id number], Partial fill upon patient request if the prescription is for a schedule II opioid drug., 1 patch Topically... Start Date: 11/14/22 Status: Ordered losartan 100 mg oral tablet 1 tablet, By Mouth, Daily, # 90 tablet, 0 Refills, Maintenance, 10/31/22 14:33:00 EDT, [facility] #70053, 175, cm, 10/08/22 15:02:00 EDT, Height Start [...] Associate Professional Member Role: PCP Address: Address: [address] [place] [address] [place] [address]- Care Team Related Persons Name: MANUEL BRIDGES Address: home [address] [place] [address] Name: MANUEL BRIDGES Address: home [address] [place] [address] Name: MANUEL BRIDGES Address: home [address] [place] [address] Name: DAYNA CÁRDENAS Address: [address] [place] [address] Name: DAYNA CÁRDENAS Address: home [address] [place] [address]
--- OUTSIDE RECORDS SUMMARY | 2023-08-13 19:10 | XMS_ITS | Continuity of Care Document ---
Author Organization [facility] Primary Car e Cheng Address [address] [place] [address]- Care Team Providers Care Clay Machine Operator Name Role Phone Jermaine Sullivan Primary Care Physician Encounter [facility] Date(s): 04/27/23 - 05/27/23 [facility] [address] [place] [address]- Allergies, Adverse Reactions, Alerts No Known Allergies [...] tablet, 1 Refills, Maintenance, 09/01/22 9:55:00 EDT, [facility] #[id number], 175, cm, 06/12/22 14:35:00 EDT, Height Start [...] tablet, 5 Refills, Maintenance, 10/18/22 11:11:00 EDT, [facility] #82021, 175, cm, 10/08/22 15:02:00 EDT, Height Start [...] 01/10/23 16:19:00 EST, Route to Pharmacy Electronically, [facility] #[id number], 175, cm, 01/10/23 14:58:00 EST, Height Start Date: 01/10/23 Status: Ordered Fish Oil By Mouth, 0 Refills, Maintenance, 10/08/22 15:08:00 EDT, Partial fill upon patient request if the prescription is for a schedule II opioid drug. Start Date: 10/08/22 Status: Ordered Berlin Belt Berlin Belt, See Instructions, # 1 each, Refills [...] 0 Refills, Maintenance, 05/25/23 20:44:00 EDT, Film, [facility] #55067, Partial fill upon patient request if the prescription is for a schedule II opioid drug., 1 patch Topically... Start Date: 05/25/23 Status: Ordered losartan 100 mg oral tablet 1 tablet, By Mouth, Daily, # 90 tablet, 0 Refills, Maintenance, 10/31/22 14:33:00 EDT, [facility] #[id number], 175, cm, 10/08/22 15:02:00 EDT, Height Start [...] Care Team Personnel Name: Jermaine Sullivan Position: [facility] PCO Associate Professional Member Role: PCP Address: Address: [address] [place] [address] Care Team Related Persons Name: MANUEL BRIDGES Address: home [address] [facility] [address] [place] [address] Name: MANUEL BRIDGES Address: home [address] [place] [address] Name: MANUEL BRIDGES Address: home [address] [place] [address] Name: DAYNA CÁRDENAS Address: home [address] [place] [address] Name: DAYNA CÁRDENAS Address: home [address] [place] [address]
--- OUTSIDE RECORDS SUMMARY | 2023-08-13 19:10 | XMS_ITS | Continuity of Care Document ---
Author Organization [facility] Primary Car e Cheng Address [address] [place] [address]- Care Team Providers Care Internet Programmer Name Role Phone Jermaine Sullivan Primary Care Physician Encounter [facility] Date(s): 09/26/22 - 10/26/22 [facility] Primary Care [facility] [address] [place] [address]- Allergies, Adverse Reactions, Alerts No Known Allergies [...] tablet, 1 Refills, Maintenance, 09/01/22 9:55:00 EDT, [facility] #27907, 175, cm, 06/12/22 14:35:00 EDT, Height Start [...] tablet, 5 Refills, Maintenance, 10/18/22 11:11:00 EDT, [facility] #[id number], 175, cm, 10/08/22 15:02:00 EDT, Height Start [...] 11/22/21 14:02:00 EDT, Route to Pharmacy Electronically, [facility] #[id number], Partial fill upon patient request if the [...] tablet, 0 Refills, Maintenance, 08/15/22 10:39:00 EDT, [facility] #[id number], 175, cm, 06/12/22 14:35:00 EDT, Height Start [...] Gm, 5 Refills, Maintenance, 06/12/22 15:02:00 EDT, [facility] #28424, Partial fill upon patient request... Start Date: [...] Care Team Personnel Name: Jermaine Sullivan Position: [facility] PCO Associate Professional Member Role: PCP Address: Address: [address] [place] [address] Care Team Related Persons Name: MANUEL BRIDGES Address: home [address] [address] Name: MANUEL BRIDGES Address: home [address] [place] [address] Name: MANUEL BRIDGES Address: home [address] [place] [address] Name: DAYNA CÁRDENAS Address: home [address] [place] [address] Name: DAYNA CÁRDENAS Address: home [address] [place] [address]
--- OUTSIDE RECORDS SUMMARY | 2023-08-13 19:10 | XMS_ITS | Continuity of Care Document ---
Author Organization [facility] Primary Car e Cheng Address [address] [place] [address]- Care Team Providers Care Pipe Bowls Paint Trimmer Name Role Phone Jermaine Sullivan Primary Care Physician [phone] Encounter [facility] Date(s): 05/25/23 - 06/24/23 [facility] Care Cheng [address] [place] [address]- Allergies, Adverse Reactions, Alerts No Known Allergies [...] tablet, 1 Refills, Maintenance, 09/01/22 9:55:00 EDT, [facility] #[id number], 175, cm, 06/12/22 14:35:00 EDT, Height Start [...] tablet, 5 Refills, Maintenance, 10/18/22 11:11:00 EDT, [facility] #73743, 175, cm, 10/08/22 15:02:00 EDT, Height Start [...] Replace Required Details, Route to Pharmacy Electronically, [facility] #[id number], 175, cm, 01/10/23 1... Start Date: 01/10/23 Status: Ordered Mobile Belt Mobile Belt, See Instructions, # 1 each, Refills [...] 0 Refills, Maintenance, 05/25/23 20:44:00 EDT, Film, [facility] #[id number], Partial fill upon patient request if the prescription is for a schedule II opioid drug., 1 patch Topically... Start Date: 05/25/23 Status: Ordered losartan 100 mg oral tablet 1 tablet, By Mouth, Daily, # 90 tablet, 0 Refills, Maintenance, 06/13/23 7:35:00 EDT, [facility] #[id number], 175, cm, 02/09/23 17:29:00 EST, Height Start [...] Professional Member Role: PCP Address: Address: [address] [place] [address] [place] [address]- Care Team Related Persons Name: MANUEL BRIDGES Address: home [address] [place] [address] Name: MANUEL BRIDGES Address: home [address] [place] [address] Name: MANUEL BRIDGES Address: home [address] [place] [address] Name: DAYNA CÁRDENAS Address: home [address] [place] [address] Name: DAYNA CÁRDENAS Address: home [address] [place] [address]
--- OUTSIDE RECORDS SUMMARY | 2023-08-13 19:10 | XMS_ITS | Continuity of Care Document ---
Author Organization [facility] Primary Car e Cheng Address [address] [place] [address]- Care Team Providers Care Language And Literature Division Chair Name Role Phone Jermaine Sullivan Primary Care Physician Encounter [facility] Date(s): 10/03/22 - 11/02/22 [facility] Care Cheng [address] [place] [address]- Allergies, Adverse Reactions, Alerts No Known Allergies [...] tablet, 1 Refills, Maintenance, 09/01/22 9:55:00 EDT, [facility] #[id number], 175, cm, 06/12/22 14:35:00 EDT, Height Start [...] tablet, 5 Refills, Maintenance, 10/18/22 11:11:00 EDT, [facility] #33556, 175, cm, 10/08/22 15:02:00 EDT, Height Start [...] 11/22/21 14:02:00 EDT, Route to Pharmacy Electronically, [facility] #[id number], Partial fill upon patient request if the [...] tablet, 0 Refills, Maintenance, 10/31/22 14:33:00 EDT, [facility] #[id number], 175, cm, 10/08/22 15:02:00 EDT, Height Start [...] Gm, 5 Refills, Maintenance, 06/12/22 15:02:00 EDT, [facility] #[id number], Partial fill upon patient request... Start Date: [...] Care Team Personnel Name: Jermaine Sullivan Position: [facility] PCO Associate Professional Member Role: PCP Address: Address: [address] [place] [address] Care Team Related Persons Name: MANUEL BRIDGES Address: home [address] [address] Name: MANUEL BRIDGES Address: home [address] [place] [address] Name: MANUEL BRIDGES Address: [address] [place] [address] Name: DAYNA CÁRDENAS Address: [address] [place] [address] Name: DAYNA CÁRDENAS Address: [address] [place] [address]
--- OUTSIDE RECORDS SUMMARY | 2023-08-13 19:10 | XMS_ITS | Continuity of Care Document ---
Author Organization [facility] Primary Car e Cheng Address [address] [place] [address]- Care Team Providers Care Cover Seamer Name Role Phone Jermaine Sullivan Primary Care Physician Encounter [facility] Date(s): 10/25/22 - 12/08/22 [facility] Care Cheng [address] [place] [address]- Attending Physician: Siobhan Flowers MD Allergies, Adverse Reactions, Alerts No Known [...] tablet, 1 Refills, Maintenance, 09/01/22 9:55:00 EDT, [facility] #[id number], 175, cm, 06/12/22 14:35:00 EDT, Height Start [...] tablet, 5 Refills, Maintenance, 10/18/22 11:11:00 EDT, [facility] #[id number], 175, cm, 10/08/22 15:02:00 EDT, Height Start Date: 10/18/22 Status: Ordered Disposable Liner/Shield/Pad/Undergarmet Disposable Liner/Shield/Pad/Undergarmet, See Instructions, # 156 each, Refills 5, Tot. Refills 5, Maintenance, R32, 05/19/22 17:00:00 EDT, Supply Start Date: 05/19/22 Status: Ordered ferrous sulfate 325 mg oral enteric coated tablet 1, tablet, By Mouth, Daily, # 90 tablet, Refills 0, Maintenance, 12/04/22 10:35:00 EDT, Route to Pharmacy Electronically, [facility] #[id number], 175, cm, 11/29/22 14:11:00 EDT, Height Start Date: 12/04/22 Status: Ordered Fish Oil By Mouth, 0 Refills, Maintenance, 10/08/22 15:08:00 EDT, Partial fill upon patient request if the prescription is for a schedule II opioid drug. Start Date: 10/08/22 Status: Ordered Blooming Grove Belt Bloom[place] Belt, See Instructions, # 1 each, Refills [...] 0 Refills, Maintenance, 11/14/22 11:39:00 EDT, Film, [facility] #[id number], Partial fill upon patient request if the prescription is for a schedule II opioid drug., 1 patch Topically... Start Date: 11/14/22 Status: Ordered losartan 100 mg oral tablet 1 tablet, By Mouth, Daily, # 90 tablet, 0 Refills, Maintenance, 10/31/22 14:33:00 EDT, [facility] #[id number], 175, cm, 10/08/22 15:02:00 EDT, Height Start [...] Care Team Personnel Name: Jermaine Sullivan Position: [facility] PCO Associate Professional Member Role: PCP Address: Address: [address] [place] [address] [place] [address]- Care Team Related Persons Name: MANUEL BRIDGES Address: [address] [place] [address] Name: MANUEL BRIDGES Address: [address] [place] [address] Name: MANUEL BRIDGES Address: home [address] [place] [address] Name: DAYNA CÁRDENAS Address: home [address] [place] [address] Name: DAYNA CÁRDENAS Address: [address] [place] [address]
--- OUTSIDE RECORDS SUMMARY | 2023-08-13 19:10 | XMS_ITS | Continuity of Care Document ---
Author Organization [facility] Primary Car e Cheng Address [address] [place] [address]- Care Team Providers Care Psychology Professor Name Role Phone Jermaine Sullivan Primary Care Physician [phone] Encounter [facility] Date(s): 05/02/23 - 06/01/23 [facility] [address] [place] [address]- Allergies, Adverse Reactions, Alerts No Known Allergies [...] tablet, 1 Refills, Maintenance, 09/01/22 9:55:00 EDT, [facility] #[id number], 175, cm, 06/12/22 14:35:00 EDT, Height Start [...] tablet, 5 Refills, Maintenance, 10/18/22 11:11:00 EDT, [id number], 175, cm, 10/08/22 15:02:00 EDT, Height Start [...] 01/10/23 16:19:00 EST, Route to Pharmacy Electronically, [facility][id number], 175, cm, 01/10/23 14:58:00 EST, Height Start Date: 01/10/23 Status: Ordered Fish Oil By Mouth, 0 Refills, Maintenance, 10/08/22 15:08:00 EDT, Partial fill upon patient request if the prescription is for a schedule II opioid drug. Start Date: 10/08/22 Status: Ordered Wales Belt Wales Belt, See Instructions, # 1 each, Refills [...] 0 Refills, Maintenance, 05/25/23 20:44:00 EDT, Film, [facility] #[id number], Partial fill upon patient request if the prescription is for a schedule II opioid drug., 1 patch Topically... Start Date: 05/25/23 Status: Ordered losartan 100 mg oral tablet 1 tablet, By Mouth, Daily, # 90 tablet, 0 Refills, Maintenance, 10/31/22 14:33:00 EDT, [facility] #[id number], 175, cm, 10/08/22 15:02:00 EDT, Height Start [...] R42, 11/07/22 13:56:00 EDT, Supply Start Date: 9/12/23 Status: Ordered Vitamin D2 By Mouth, 0 [...] Care Team Personnel Name: Jermaine Sullivan Position: [facility] PCO Associate Professional Member Role: PCP Address: Address: [address] [place] [address]- Care Team Related Persons Name: MANUEL BRIDGES Address: [address] [place], [place] Name: MANUEL BRIDGES Address: [address] [place] [address] Name: MANUEL BRIDGES Address: home [address] [place] [address] Name: DAYNA CÁRDENAS Address: [address] [place] [address] Name: DAYNA CÁRDENAS Address: [address] [place] [address]
--- OUTSIDE RECORDS SUMMARY | 2023-08-13 19:10 | XMS_ITS | Continuity of Care Document ---
Author Organization [facility] Primary Car e Cheng Address [address] [place] [address]- Care Team Providers Care Beef Cattle Specialist Name Role Phone Jermaine Sullivan Primary Care Physician Encounter [facility] Date(s): 04/30/23 - 05/30/23 [facility] Cheng [address] [place] [address]- Allergies, Adverse Reactions, Alerts No Known Allergies [...] tablet, 1 Refills, Maintenance, 09/01/22 9:55:00 EDT, [facility] #[id number], 175, cm, 06/12/22 14:35:00 EDT, Height Start [...] tablet, 5 Refills, Maintenance, 10/18/22 11:11:00 EDT, [facility] #[id number], 175, cm, 10/08/22 15:02:00 EDT, Height Start [...] 01/10/23 16:19:00 EST, Route to Pharmacy Electronically, [facility] #[id number], 175, cm, 01/10/23 14:58:00 EST, Height Start Date: 01/10/23 Status: Ordered Fish Oil By Mouth, 0 Refills, Maintenance, 10/08/22 15:08:00 EDT, Partial fill upon patient request if the prescription is for a schedule II opioid drug. Start Date: 10/08/22 Status: Ordered [place] Belt [place] Belt, See Instructions, # 1 each, Refills [...] 0 Refills, Maintenance, 05/25/23 20:44:00 EDT, Film, [facility] #[id number], Partial fill upon patient request if the prescription is for a schedule II opioid drug., 1 patch Topically... Start Date: 05/25/23 Status: Ordered losartan 100 mg oral tablet 1 tablet, By Mouth, Daily, # 90 tablet, 0 Refills, Maintenance, 10/31/22 14:33:00 EDT, [facility] #[id number], 175, cm, 10/08/22 15:02:00 EDT, Height Start [...] Care Team Personnel Name: Jermaine Sullivan Position: [facility] PCO Associate Professional Member Role: PCP Address: Address: [address] [place] [address]- Care Team Related Persons Name: MANUEL BRIDGES Address: home [address] [place], [place] Name: MANUEL BRIDGES Address: home [address] [place] [address] Name: MANUEL BRIDGES Address: home [address] [place] [address] Name: DAYNA CÁRDENAS Address: home [address] [place] [address] Name: DAYNA CÁRDENAS Address: home [address] [place] [address]
--- OUTSIDE RECORDS SUMMARY | 2023-08-13 19:10 | XMS_ITS | Continuity of Care Document ---
Author Organization [facility] Address [address] [facility], [address] d Floor, [address] [place] [address]- Care Team Providers Care Revenue Agent Name Role Phone Jermaine Sullivan Primary Care Physician [phone] Encounter [facility] Date(s): 01/08/23 - 05/24/23 [facility] [address] [facility] [address]rd Floor, [address] [place] [address] Attending Physician: Marco Porter MD Admitting Physician: Marco Porter MD Referring Physician: Jermaine Sullivan Allergies, Adverse [...] tablet, 1 Refills, Maintenance, 09/01/22 9:55:00 EDT, [facility] #[id number], 175, cm, 06/12/22 14:35:00 EDT, Height Start [...] tablet, 5 Refills, Maintenance, 10/18/22 11:11:00 EDT, [facility] #[id number], 175, cm, 10/08/22 15:02:00 EDT, Height Start [...] 01/10/23 16:19:00 EST, Route to Pharmacy Electronically, [facility] #[id number], 175, cm, 01/10/23 14:58:00 EST, Height Start Date: 01/10/23 Status: Ordered Fish Oil By Mouth, 0 Refills, Maintenance, 10/08/22 15:08:00 EDT, Partial fill upon patient request if the prescription is for a schedule II opioid drug. Start Date: 10/08/22 Status: Ordered [place] Belt [place] Belt, See Instructions, # 1 each, Refills [...] 0 Refills, Maintenance, 11/14/22 11:39:00 EDT, Film, [facility] #[id number], Partial fill upon patient request if the prescription is for a schedule II opioid drug., 1 patch Topically... Start Date: 11/14/22 Status: Ordered losartan 100 mg oral tablet 1 tablet, By Mouth, Daily, # 90 tablet, 0 Refills, Maintenance, 10/31/22 14:33:00 EDT, [facility] #[id number], 175, cm, 10/08/22 15:02:00 EDT, Height Start [...] Care Team Personnel Name: Jermaine Sullivan Position: [facility] PCO Associate Professional Member Role: PCP Address: Address: [address] [place] [address]- Care Team Related Persons Name: MANUEL BRIDGES Address: home [address] [place] [address] Name: MANUEL BRIDGES Address: home [address] [place] [address] Name: MANUEL BRIDGES Address: home [address] [place] [address] Name: DAYNA CÁRDENAS Address: home [address] [place] [address] Name: DAYNA CÁRDENAS Address: home [address] [place] [address]
--- OUTSIDE RECORDS SUMMARY | 2023-08-13 19:10 | XMS_ITS | Continuity of Care Document ---
Author Organization [facility] Primary Car e Cheng Address [address] [place] [address]- Care Team Providers Care Can Reforming Machine Operator Name Role Phone Jermaine Sullivan Primary Care Physician [phone] Encounter [facility] Date(s): 11/17/22 - 12/17/22 [facility] Care Cheng [address] [place] [address]- Allergies, Adverse Reactions, Alerts No Known Allergies [...] tablet, 1 Refills, Maintenance, 09/01/22 9:55:00 EDT, [facility] #[id number], 175, cm, 06/12/22 14:35:00 EDT, Height Start [...] tablet, 5 Refills, Maintenance, 10/18/22 11:11:00 EDT, [facility] #[id number], 175, cm, 10/08/22 15:02:00 EDT, Height Start [...] 12/04/22 10:35:00 EDT, Route to Pharmacy Electronically, [facility] #06441, 175, cm, 11/29/22 14:11:00 EDT, Height Start Date: 12/04/22 Status: Ordered Fish Oil By Mouth, 0 Refills, Maintenance, 10/08/22 15:08:00 EDT, Partial fill upon patient request if the prescription is for a schedule II opioid drug. Start Date: 10/08/22 Status: Ordered Troup Belt Troup Belt, See Instructions, # 1 each, Refills [...] 0 Refills, Maintenance, 11/14/22 11:39:00 EDT, Film, [facility] #[id number], Partial fill upon patient request if the prescription is for a schedule II opioid drug., 1 patch Topically... Start Date: 11/14/22 Status: Ordered losartan 100 mg oral tablet 1 tablet, By Mouth, Daily, # 90 tablet, 0 Refills, Maintenance, 10/31/22 14:33:00 EDT, [facility] #[id number], 175, cm, 10/08/22 15:02:00 EDT, Height Start [...] Professional Member Role: PCP Address: Address: [address] [place] [address] [place] [address]- Care Team Related Persons Name: MANUEL BRIDGES Address: home [address] [place] [address] Name: MANUEL BRIDGES Address: home [address] [place] [address] Name: MANUEL BRIDGES Address: home [address] [place] [address] Name: DAYNA CÁRDENAS Address: home [address] [place] [address] Name: DAYNA CÁRDENAS Address: home [address] [place] [address]
--- OUTSIDE RECORDS SUMMARY | 2023-08-13 19:10 | XMS_ITS | Continuity of Care Document ---
Author Organization [facility] Primary Car e Cheng Address [address] [place] [address]- Care Team Providers Care Director Of Religious Life Name Role Phone Jermaine Sullivan Primary Care Physician [phone] Encounter [facility] Date(s): 11/17/22 - 12/17/22 [facility] Care Cheng [address] [place] [address]- Allergies, Adverse Reactions, Alerts No Known Allergies [...] tablet, 1 Refills, Maintenance, 09/01/22 9:55:00 EDT, [facility] #[id number], 175, cm, 06/12/22 14:35:00 EDT, Height Start [...] tablet, 5 Refills, Maintenance, 10/18/22 11:11:00 EDT, [facility] #06362, 175, cm, 10/08/22 15:02:00 EDT, Height Start [...] 12/04/22 10:35:00 EDT, Route to Pharmacy Electronically, [facility] #[id number], 175, cm, 11/29/22 14:11:00 EDT, Height Start Date: 12/04/22 Status: Ordered Fish Oil By Mouth, 0 Refills, Maintenance, 10/08/22 15:08:00 EDT, Partial fill upon patient request if the prescription is for a schedule II opioid drug. Start Date: 10/08/22 Status: Ordered [place] Belt [place] Belt, See Instructions, # 1 each, Refills [...] 0 Refills, Maintenance, 11/14/22 11:39:00 EDT, Film, [facility] #[id number], Partial fill upon patient request if the prescription is for a schedule II opioid drug., 1 patch Topically... Start Date: 11/14/22 Status: Ordered losartan 100 mg oral tablet 1 tablet, By Mouth, Daily, # 90 tablet, 0 Refills, Maintenance, 10/31/22 14:33:00 EDT, [facility] #[id number], 175, cm, 10/08/22 15:02:00 EDT, Height Start [...] Associate Professional Member Role: PCP Address: Address: [address] [place] [address] [place] [address]- Care Team Related Persons Name: MANUEL BRIDGES Address: home [address] [place] [address] Name: MANUEL BRIDGES Address: home [address] [place] [address] Name: MANUEL BRIDGES Address: home [address] [place] [address] Name: DAYNA CÁRDENAS Address: home [address] [place] [address] Name: DAYNA CÁRDENAS Address: [address] [place] [address]
--- OUTSIDE RECORDS SUMMARY | 2023-08-13 19:10 | XMS_ITS | Continuity of Care Document ---
Author Organization [facility] Primary Car e Cheng Address [address] [place] [address]- Care Team Providers Care Travel Pt Name Role Phone Jermaine Sullivan Primary Care Physician Encounter [facility] Date(s): 06/29/23 - 07/29/23 [facility] [place] [address] [place], [place] [address] [[email or web address]] Attending Physician: Oziel Kurtz Admitting Physician: AdmOziel hernandez Referring Physician: Admtr, Ar8 Allergies, Adverse Reactions, [...] tablet, 1 Refills, Maintenance, 09/01/22 9:55:00 EDT, [facility] #[id number], 175, cm, 06/12/22 14:35:00 EDT, Height Start [...] tablet, 5 Refills, Maintenance, 10/18/22 11:11:00 EDT, [facility] #07741, 175, cm, 10/08/22 15:02:00 EDT, Height Start [...] Replace Required Details, Route to Pharmacy Electronically, [facility] #[id number], 175, cm, 01/10/23 1... Start Date: 01/10/23 Status: Ordered [place] Belt [place] Belt, See Instructions, # 1 each, Refills [...] 0 Refills, Maintenance, 05/25/23 20:44:00 EDT, Film, [facility] #[id number], Partial fill upon patient request if the prescription is for a schedule II opioid drug., 1 patch Topically... Start Date: 05/25/23 Status: Ordered losartan 100 mg oral tablet 1 tablet, By Mouth, Daily, # 90 tablet, 0 Refills, Maintenance, 06/13/23 7:35:00 EDT, [facility] #[id number], 175, cm, 02/09/23 17:29:00 EST, Height Start [...] transfers dx: M48.00, M17.9, G31.83 fax # [phone], 07/25/23 15:30:00 EDT, Supply Start Date: 07/25/23 [...] note * Event Display: Inpatient Consult Note, Non- Authored Date: Laboratory * Event Display: Non BH Lab Results Authored Date: * Event Display: Non BH Lab Results Authored Date: * Event Display: Non BH Lab Results Authored Date: Radiology * Event Display: MRI Spine, Non- BH Authored Date: * Event Display: MRI Spine, Non- Authored Date: * Event Display: X-Ray Chest, Non- Authored Date: * Event Display: X-Ray Knee, Non- BH Authored Date: * Event Display: X-Ray Knee, Non- Authored Date: * Event Display: X-Ray Hip/Groin, [...] Non- BH Authored Date: * Event Display: Bone Density Authored Date: * Event Display: X-Ray Spine, Non- BH Authored Date: * Event Display: X-Ray Abdomen, Non- BH Authored Date: Patient Care team information Care Team Personnel Name: Jermaine Sullivan Position: S PCO Associate Professional Member Role: PCP Address: Address: [address] [place] [address]- Care Team Related Persons Name: MANUEL BRIDGES Address: home [address] [place] [address] Name: MANUEL BRIDGES Address: home [address] [place] [address] Name: MANUEL BRIDGES Address: [address] [place] [address] Name: DAYNA CÁRDENAS Address: [address] [place] [address] Name: DAYNA CÁRDENAS Address: home [address] [place] [address]
--- OUTSIDE RECORDS SUMMARY | 2023-08-13 19:10 | XMS_ITS | Continuity of Care Document ---
Author Organization [facility] Address [address] [place] [address]- Care Team Providers Care Public Health Dietitian Name Role Phone Jermaine Sullivan Primary Care Physician [phone] Encounter [facility] Date(s): 12/01/22 - 12/31/22 [facility] [address] [place] [address]- Allergies, Adverse Reactions, Alerts No Known Allergies [...] tablet, 1 Refills, Maintenance, 09/01/22 9:55:00 EDT, [facility] #[id number], 175, cm, 06/12/22 14:35:00 EDT, Height Start [...] tablet, 5 Refills, Maintenance, 10/18/22 11:11:00 EDT, [facility] #[id number], 175, cm, 10/08/22 15:02:00 EDT, Height Start [...] 12/04/22 10:35:00 EDT, Route to Pharmacy Electronically, [facility] #[id number], 175, cm, 11/29/22 14:11:00 EDT, Height Start Date: 12/04/22 Status: Ordered Fish Oil By Mouth, 0 Refills, Maintenance, 10/08/22 15:08:00 EDT, Partial fill upon patient request if the prescription is for a schedule II opioid drug. Start Date: 10/08/22 Status: Ordered [place] Belt [place] Belt, See Instructions, # 1 each, Refills [...] 0 Refills, Maintenance, 11/14/22 11:39:00 EDT, Film, [facility] #[id number], Partial fill upon patient request if the prescription is for a schedule II opioid drug., 1 patch Topically... Start Date: 11/14/22 Status: Ordered losartan 100 mg oral tablet 1 tablet, By Mouth, Daily, # 90 tablet, 0 Refills, Maintenance, 10/31/22 14:33:00 EDT, [facility] #[id number], 175, cm, 10/08/22 15:02:00 EDT, Height Start [...] Associate Professional Member Role: PCP Address: Address: [address] [place] [address] [place] [address]- Care Team Related Persons Name: MANUEL BRIDGES Address: home [address] [place] [address] Name: MANUEL BRIDGES Address: home [address] [place] [address] Name: MANUEL BRIDGES Address: [address] [place] [address] Name: DAYNA CÁRDENAS Address: [address] [place] [address] Name: DAYNA CÁRDENAS Address: [address] [place] [address]
--- OUTSIDE RECORDS SUMMARY | 2023-08-13 19:10 | XMS_ITS | Continuity of Care Document ---
Author Organization [facility] Primary Car e Cheng Address [address] [place] [address]- Care Team Providers Care Manager Of Broadcast Content Name Role Phone Jermaine Sullivan Primary Care Physician Encounter [facility] Date(s): 05/15/23 - 06/14/23 [facility] Primary [facility] Cheng [address] [place] [address]- Allergies, Adverse Reactions, Alerts No Known Allergies [...] tablet, 1 Refills, Maintenance, 09/01/22 9:55:00 EDT, [facility] #[id number], 175, cm, 06/12/22 14:35:00 EDT, Height Start [...] tablet, 5 Refills, Maintenance, 10/18/22 11:11:00 EDT, [facility] #21613, 175, cm, 10/08/22 15:02:00 EDT, Height Start [...] Replace Required Details, Route to Pharmacy Electronically, [facility] #24760, 175, cm, 01/10/23 1... Start Date: 01/10/23 Status: Ordered [place] Belt [place] Belt, See Instructions, # 1 each, Refills [...] 0 Refills, Maintenance, 05/25/23 20:44:00 EDT, Film, [facility] #[id number], Partial fill upon patient request if the prescription is for a schedule II opioid drug., 1 patch Topically... Start Date: 05/25/23 Status: Ordered losartan 100 mg oral tablet 1 tablet, By Mouth, Daily, # 90 tablet, 0 Refills, Maintenance, 06/13/23 7:35:00 EDT, [facility] #69173, 175, cm, 02/09/23 17:29:00 EST, Height Start [...] Associate Professional Member Role: PCP Address: Address: [address] [place] [address] [place] [address]- Care Team Related Persons Name: MANUEL BRIDGES Address: home [address] [facility] [address] [place] [address] Name: MANUEL BRIDGES Address: [address] [place] [address] Name: MANUEL BRIDGES Address: [address] [place] [address] Name: DAYNA CÁRDENAS Address: [address] [place] [address] Name: DAYNA CÁRDENAS Address: [address] [place] [address]
--- OUTSIDE RECORDS SUMMARY | 2023-08-13 19:10 | XMS_ITS | Continuity of Care Document ---
Author Organization [facility] Primary Car e Cheng Address [address] [place] [address]- Care Team Providers Care Garment Patternmaker Name Role Phone Jermaine Sullivan Primary Care Physician Encounter [facility] Date(s): 11/03/22 - 12/03/22 [facility] Care Cheng [address] [place] [address]- Allergies, Adverse Reactions, Alerts No Known Allergies [...] tablet, 1 Refills, Maintenance, 09/01/22 9:55:00 EDT, [facility] #93404, 175, cm, 06/12/22 14:35:00 EDT, Height Start [...] tablet, 5 Refills, Maintenance, 10/18/22 11:11:00 EDT, [facility] #35276, 175, cm, 10/08/22 15:02:00 EDT, Height Start [...] opioid drug. Start Date: 10/08/22 Status: Ordered [place] Belt [place] Belt, See Instructions, # 1 each, Refills [...] 0 Refills, Maintenance, 11/14/22 11:39:00 EDT, Film, [facility] #[id number], Partial fill upon patient request if the prescription is for a schedule II opioid drug., 1 patch Topically... Start Date: 11/14/22 Status: Ordered losartan 100 mg oral tablet 1 tablet, By Mouth, Daily, # 90 tablet, 0 Refills, Maintenance, 10/31/22 14:33:00 EDT, [facility] #88695, 175, cm, 10/08/22 15:02:00 EDT, Height Start [...] Personnel Name: Jermaine Sullivan Position: [facility] PCO Associate Professional Member Role: PCP Address: Address: [address] [place] [address]- Care Team Related Persons Name: MANUEL BRIDGES Address: home [address] [facility] [address] [place] [address] Name: MANUEL BRIDGES Address: [address] [place] [address] Name: MANUEL BRIDGES Address: [address] [place] [address] Name: DAYNA CÁRDENAS Address: [address] [place] [address] Name: DAYNA CÁRDENAS Address: [address] [place] [address]
--- OUTSIDE RECORDS SUMMARY | 2023-08-13 19:10 | XMS_ITS | Continuity of Care Document ---
Author Organization [facility] Primary Car e Cheng Address [address] [place] [address]- Care Team Providers Care Machine Maintenance Technician Name Role Phone Jermaine Sullivan Primary Care Physician Encounter [facility] Date(s): 06/05/23 - 07/05/23 [facility] Primary Care Cheng [address] [place] [address]- Allergies, Adverse Reactions, Alerts No Known Allergies [...] tablet, 1 Refills, Maintenance, 09/01/22 9:55:00 EDT, [facility] #62179, 175, cm, 06/12/22 14:35:00 EDT, Height Start [...] tablet, 5 Refills, Maintenance, 10/18/22 11:11:00 EDT, [facility] #63633, 175, cm, 10/08/22 15:02:00 EDT, Height Start [...] Replace Required Details, Route to Pharmacy Electronically, [facility] #48066, 175, cm, 01/10/23 1... Start Date: 01/10/23 Status: Ordered [place] Belt [place] Belt, See Instructions, # 1 each, Refills [...] 0 Refills, Maintenance, 05/25/23 20:44:00 EDT, Film, [facility] #80041, Partial fill upon patient request if the prescription is for a schedule II opioid drug., 1 patch Topically... Start Date: 05/25/23 Status: Ordered losartan 100 mg oral tablet 1 tablet, By Mouth, Daily, # 90 tablet, 0 Refills, Maintenance, 06/13/23 7:35:00 EDT, [facility] #85600, 175, cm, 02/09/23 17:29:00 EST, Height Start [...] Associate Professional Member Role: PCP Address: Address: [address] [place] [address] [place] [address]- Care Team Related Persons Name: MANUEL BRIDGES Address: home [address] [facility] [address] [place] [address] Name: MANUEL BRIDGES Address: [address] [place] [address] Name: MANUEL BRIDGES Address: [address] [place] [address] Name: DAYNA CÁRDENAS Address: [address] [place] [address] Name: DAYNA CÁRDENAS Address: [address] [place] [address]
--- OUTSIDE RECORDS SUMMARY | 2023-08-13 19:10 | XMS_ITS | Continuity of Care Document ---
Author Organization [facility] Primary Car e Cheng Address [address] [place] [address]- Care Team Providers Care Candy Dipper Name Role Phone Jermaine Sullivan Primary Care Physician Encounter [facility] Date(s): 09/26/22 - 10/27/22 [facility] Primary Care Cheng [address] [place] [address]- Attending Physician: Jermaine Sullivan Allergies, Adverse Reactions, [...] tablet, 1 Refills, Maintenance, 09/01/22 9:55:00 EDT, [facility] #[id number], 175, cm, 06/12/22 14:35:00 EDT, Height Start [...] tablet, 5 Refills, Maintenance, 10/18/22 11:11:00 EDT, [facility] #69761, 175, cm, 10/08/22 15:02:00 EDT, Height Start [...] 11/22/21 14:02:00 EDT, Route to Pharmacy Electronically, [facility] #[id number], Partial fill upon patient request if the [...] tablet, 0 Refills, Maintenance, 08/15/22 10:39:00 EDT, [facility] #66993, 175, cm, 06/12/22 14:35:00 EDT, Height Start [...] Gm, 5 Refills, Maintenance, 06/12/22 15:02:00 EDT, [facility] #32476, Partial fill upon patient request... Start Date: [...] Associate Professional Member Role: PCP Address: Address: [address] [place] [address]- [place] Care Team Related Persons Name: MANUEL BRIDGES Address: home [address] [place] [address] Name: MANUEL BRIDGES Address: [address] [place] [address] Name: MANUEL BRIDGES Address: [address] [place] [address] Name: DAYNA CÁRDENAS Address: [address] [place] [address] Name: DAYNA CÁRDENAS Address: home [address] [place] [address]
--- OUTSIDE RECORDS SUMMARY | 2023-08-13 19:10 | XMS_ITS | Continuity of Care Document ---
Author Organization [facility] Primary Car e Cheng Address [address] [place] [address]- Care Team Providers Care Bible Teacher Name Role Phone Jermaine Sullivan Primary Care Physician Encounter [facility] Date(s): 09/26/22 - 10/26/22 [facility] Care Cheng [address] [place] [address]- Allergies, Adverse Reactions, Alerts No Known Allergies [...] tablet, 1 Refills, Maintenance, 09/01/22 9:55:00 EDT, [facility] #09738, 175, cm, 06/12/22 14:35:00 EDT, Height Start [...] tablet, 5 Refills, Maintenance, 10/18/22 11:11:00 EDT, [facility] #[id number], 175, cm, 10/08/22 15:02:00 EDT, Height Start [...] 11/22/21 14:02:00 EDT, Route to Pharmacy Electronically, [facility] #[id number], Partial fill upon patient request if the [...] tablet, 0 Refills, Maintenance, 08/15/22 10:39:00 EDT, [facility] #75100, 175, cm, 06/12/22 14:35:00 EDT, Height Start [...] Gm, 5 Refills, Maintenance, 06/12/22 15:02:00 EDT, [facility] #95765, Partial fill upon patient request... Start Date: [...] Care Team Personnel Name: Jermaine Sullivan Position: [facility] PCO Associate Professional Member Role: PCP Address: Address: [address] [place] [address] Care Team Related Persons Name: MANUEL BRIDGES Address: home [address] [facility] [address] [place] [address] Name: MANUEL BRIDGES Address: home [address] [place] [address] Name: MANUEL BRIDGES Address: [address] [place] [address] Name: DAYNA CÁRDENAS Address: [address] [place] [address] Name: DAYNA CÁRDENAS Address: home [address] [place] [address]
--- OUTSIDE RECORDS SUMMARY | 2023-08-13 19:10 | XMS_ITS | Continuity of Care Document ---
Author Organization [facility] Primary Car e Cheng Address [address] [place] [address]- Care Team Providers Care Scale Tank Operator Name Role Phone Jermaine Sullivan Primary Care Physician Encounter [facility] Date(s): 01/17/23 - 02/16/23 [facility] Care Cheng [address] [place] [address]- Allergies, Adverse Reactions, Alerts No Known Allergies [...] tablet, 1 Refills, Maintenance, 09/01/22 9:55:00 EDT, [facility] #[id number], 175, cm, 06/12/22 14:35:00 EDT, Height Start [...] tablet, 5 Refills, Maintenance, 10/18/22 11:11:00 EDT, [facility] #[id number], 175, cm, 10/08/22 15:02:00 EDT, Height Start [...] 01/10/23 16:19:00 EST, Route to Pharmacy Electronically, [facility] #[id number], 175, cm, 01/10/23 14:58:00 EST, Height Start Date: 01/10/23 Status: Ordered Fish Oil By Mouth, 0 Refills, Maintenance, 10/08/22 15:08:00 EDT, Partial fill upon patient request if the prescription is for a schedule II opioid drug. Start Date: 10/08/22 Status: Ordered Palatine Belt Palatine Belt, See Instructions, # 1 each, Refills [...] 0 Refills, Maintenance, 11/14/22 11:39:00 EDT, Film, [facility] #[id number], Partial fill upon patient request if the prescription is for a schedule II opioid drug., 1 patch Topically... Start Date: 11/14/22 Status: Ordered losartan 100 mg oral tablet 1 tablet, By Mouth, Daily, # 90 tablet, 0 Refills, Maintenance, 10/31/22 14:33:00 EDT, [facility] #[id number], 175, cm, 10/08/22 15:02:00 EDT, Height Start [...] Associate Professional Member Role: PCP Address: Address: [address] [place] [address]- Care Team Related Persons Name: MANUEL BRIDGES Address: home [address] [place] [address] Name: MANUEL BRIDGES Address: home [address] [place] [address] Name: MANUEL BRIDGES Address: home [address] [place] [address] Name: DAYNA CÁRDEANS Address: home [address] [place] [address] Name: DAYNA CÁRDENAS Address: home [address] [place] [address]
--- OUTSIDE RECORDS SUMMARY | 2023-08-13 19:10 | XMS_ITS | Continuity of Care Document ---
Author Organization [facility] Primary Car e Cheng Address [address] [place] [address]- Care Team Providers Care Oil Developer Name Role Phone Jermaine Sullivan Primary Care Physician Encounter [facility] Date(s): 05/28/23 - 06/27/23 [facility] Primary [facility] Cheng [address] [place] [address]- Allergies, Adverse Reactions, Alerts No Known Allergies [...] tablet, 1 Refills, Maintenance, 09/01/22 9:55:00 EDT, [facility] #[id number], 175, cm, 06/12/22 14:35:00 EDT, Height Start [...] tablet, 5 Refills, Maintenance, 10/18/22 11:11:00 EDT, [facility] #28207, 175, cm, 10/08/22 15:02:00 EDT, Height Start [...] Replace Required Details, Route to Pharmacy Electronically, [facility] #[id number], 175, cm, 01/10/23 1... Start Date: 01/10/23 Status: Ordered Hornbeck Belt Hornbeck Belt, See Instructions, # 1 each, Refills [...] 0 Refills, Maintenance, 05/25/23 20:44:00 EDT, Film, [facility] #[id number], Partial fill upon patient request if the prescription is for a schedule II opioid drug., 1 patch Topically... Start Date: 05/25/23 Status: Ordered losartan 100 mg oral tablet 1 tablet, By Mouth, Daily, # 90 tablet, 0 Refills, Maintenance, 06/13/23 7:35:00 EDT, [facility] #[id number], 175, cm, 02/09/23 17:29:00 EST, Height Start [...] Associate Professional Member Role: PCP Address: Address: [address] [place] [address] [place] [address]- Care Team Related Persons Name: MANUEL BRIDGES Address: home [address] [facility] [address] [place] [address] Name: MANUEL BRIDGES Address: home [address] [place] [address] Name: MANUEL BRIDGES Address: home [address] [place] [address] Name: DAYNA CÁRDENAS Address: home [address] [place] [address] Name: DAYNA CÁRDENAS Address: home [address] [place] [address]
--- OUTSIDE RECORDS SUMMARY | 2023-08-13 19:10 | XMS_ITS | Continuity of Care Document ---
Author Organization [facility] Primary Car e Cheng Address [address] [place] [address]- Care Team Providers Care Delinquent Tax Collector Name Role Phone Jermaine Sullivan Primary Care Physician Encounter [facility] Date(s): 02/12/23 - 05/24/23 [facility] Primary Care Cheng [address] [place], [place] [address] Attending Physician: Siobhan Flowers MD Allergies, Adverse [...] tablet, 1 Refills, Maintenance, 09/01/22 9:55:00 EDT, [facility] #[id number], 175, cm, 06/12/22 14:35:00 EDT, Height Start [...] tablet, 5 Refills, Maintenance, 10/18/22 11:11:00 EDT, [facility] #[id number], 175, cm, 10/08/22 15:02:00 EDT, Height Start [...] 01/10/23 16:19:00 EST, Route to Pharmacy Electronically, [facility] #[id number], 175, cm, 01/10/23 14:58:00 EST, Height Start Date: 01/10/23 Status: Ordered Fish Oil By Mouth, 0 Refills, Maintenance, 10/08/22 15:08:00 EDT, Partial fill upon patient request if the prescription is for a schedule II opioid drug. Start Date: 10/08/22 Status: Ordered Saint Louis Belt Saint Louis Belt, See Instructions, # 1 each, Refills [...] 0 Refills, Maintenance, 11/14/22 11:39:00 EDT, Film, [facility] #[id number], Partial fill upon patient request if the prescription is for a schedule II opioid drug., 1 patch Topically... Start Date: 11/14/22 Status: Ordered losartan 100 mg oral tablet 1 tablet, By Mouth, Daily, # 90 tablet, 0 Refills, Maintenance, 10/31/22 14:33:00 EDT, [facility] #60392, 175, cm, 10/08/22 15:02:00 EDT, Height Start [...] Care Team Personnel Name: Jermaine Sullivan Position: [facility] PCO Associate Professional Member Role: PCP Address: Address: [address] [place] [address] Care Team Related Persons Name: MANUEL BRIDGES Address: home [address] [place] [address] Name: MANUEL BRIDGES Address: home [address] [place] [address] Name: MANUEL BRIDGES Address: home [address] [place] [address] Name: DAYNA CÁRDENAS Address: home [address] [place] [address] Name: DAYNA CÁRDENAS Address: home [address] [place] [address]
--- OUTSIDE RECORDS SUMMARY | 2023-08-13 19:11 | XMS_ITS | Continuity of Care Document ---
Author Organization [facility] ter Address [address] [place] [address]- Care Team Providers Care Registered Nurse Cardiac Name Role Phone Jermaine Sullivan Primary Care Physician [phone] Encounter [facility] Date(s): 08/15/22 - 09/14/[address] [address] Allergies, Adverse Reactions, Alerts No Known [...] tablet, 1 Refills, Maintenance, 09/01/22 9:55:00 EDT, [facility] #[id number], 175, cm, 06/12/22 14:35:00 EDT, Height Start [...] tablet, 0 Refills, Maintenance, 04/10/22 10:11:00 EST, [facility] #47183, 175, cm, 12/28/21 14:37:00 EDT, Height Start [...] 11/22/21 14:02:00 EDT, Route to Pharmacy Electronically, [facility] #[id number], Partial fill upon patient request if the [...] tablet, 0 Refills, Maintenance, 08/15/22 10:39:00 EDT, [facility] #66121, 175, cm, 06/12/22 14:35:00 EDT, Height Start [...] Gm, 5 Refills, Maintenance, 06/12/22 15:02:00 EDT, [facility] #[id number], Partial fill upon patient request... Start Date: [...] Associate Professional Member Role: PCP Address: Address: [address] [place] [address] [place] [address]- Care Team Related Persons Name: MANUEL BRIDGES Address: home [address] [place] [address] Name: MANUEL BRIDGES Address: home [address] [place] [address] Name: MANUEL BRIDGES Address: home [address] [place] [address] Name: DAYNA CÁRDENAS Address: home [address] [place] [address] Name: DAYNA CÁRDENAS Address: home [address] [place] [address]
--- OUTSIDE RECORDS SUMMARY | 2023-08-13 19:11 | XMS_ITS | Continuity of Care Document ---
Author Organization [facility] Primary Car e Cheng Address [address] [place] [address]- Care Team Providers Care Civil Litigation Attorney Name Role Phone Jermaine Sullivan Primary Care Physician Encounter [facility] Date(s): 08/09/22 - 09/08/22 [facility] Care Cheng [address] [place] [address]- Allergies, Adverse Reactions, Alerts No Known Allergies [...] tablet, 1 Refills, Maintenance, 09/01/22 9:55:00 EDT, [facility] #[id number], 175, cm, 06/12/22 14:35:00 EDT, Height Start [...] tablet, 0 Refills, Maintenance, 04/10/22 10:11:00 EST, [facility] #[id number], 175, cm, 12/28/21 14:37:00 EDT, Height Start [...] 11/22/21 14:02:00 EDT, Route to Pharmacy Electronically, [facility] #[id number], Partial fill upon patient request if the [...] tablet, 0 Refills, Maintenance, 08/15/22 10:39:00 EDT, [facility] #[id number], 175, cm, 06/12/22 14:35:00 EDT, Height Start [...] Gm, 5 Refills, Maintenance, 06/12/22 15:02:00 EDT, [facility] #94038, Partial fill upon patient request... Start Date: [...] Urinary incontinence Confirmed Active Vertigo Confirmed Active Vital Signs Most recent to oldest [Reference Range]: 1 Blood Pressure [90-138/55-84 mm Hg] 146/ 72mm Hg *H* (08/09/22 9:53 AM) Social History Social History Type Response Smoking Status Never (less than 100 in lifetime) entered on: 05/23/21 Sex Patient Care team information Care Team Personnel Name: Jermaine Sullivan Position: S PCO Associate Professional Member Role: PCP Address: Address: [address] [place] [address] [address]- Care Team Related Persons Name: MANUEL BRIDGES Address: [address] [place] [address] Name: MANUEL BRIDGES Address: [address] [place] [address] Name: MANUEL BRIDGES Address: home [address] [place] [address] Name: DAYNA CÁRDENAS Address: home [address] [place] [address] Name: DAYNA CÁRDENAS Address: [address] [place] [address]
--- OUTSIDE RECORDS SUMMARY | 2023-08-13 19:11 | XMS_ITS | Continuity of Care Document ---
Author Organization [facility] Primary Car e Cheng Address [address] [place] [address]- Care Team Providers Care Supervisor Crack Off Name Role Phone Jermaine Sullivan Primary Care Physician Encounter [facility] Date(s): 10/03/22 - 11/02/22 [facility] Care Cheng [address] [place] [address]- Allergies, Adverse Reactions, Alerts No Known Allergies [...] tablet, 1 Refills, Maintenance, 09/01/22 9:55:00 EDT, [facility] #[id number], 175, cm, 06/12/22 14:35:00 EDT, Height Start [...] tablet, 5 Refills, Maintenance, 10/18/22 11:11:00 EDT, [facility] #[id number], 175, cm, 10/08/22 15:02:00 EDT, Height Start [...] 11/22/21 14:02:00 EDT, Route to Pharmacy Electronically, [facility] #[id number], Partial fill upon patient request if the [...] tablet, 0 Refills, Maintenance, 10/31/22 14:33:00 EDT, [facility] #[id number], 175, cm, 10/08/22 15:02:00 EDT, Height Start [...] Gm, 5 Refills, Maintenance, 06/12/22 15:02:00 EDT, [facility] #92021, Partial fill upon patient request... Start Date: [...] Care Team Personnel Name: Jermaine Sullivan Position: [facility] PCO Associate Professional Member Role: PCP Address: Address: [address] [place] [address] [place] [address] Care Team Related Persons Name: MANUEL BRIDGES Address: home [address] [place] [address] Name: MANUEL BRIDGES Address: home [address] [place] [address] Name: MANUEL BRIDGES Address: home [address] [facility] [address] [place] [address] Name: DAYNA CÁRDENAS Address: home [address] [place] [address] Name: DAYNA CÁRDENAS Address: home [address] [place] [address]
--- OUTSIDE RECORDS SUMMARY | 2023-08-13 19:11 | XMS_ITS | Continuity of Care Document ---
Author Organization [facility] Address [address] [facility], [address] d Floor, [address] [place] [address]- Care Team Providers Care Rifle Case Repairer Name Role Phone Jermaine Sullivan Primary Care Physician [place] [facility] Date(s[facility] 04/24/23 - 05/24/23 [facility] [address] [facility] 3rd Floor, [address] [place] [address]- Attending Physician: Oziel Kurtz Admitting Physician: Oziel [...] tablet, 1 Refills, Maintenance, 09/01/22 9:55:00 EDT, [facility] #[id number], 175, cm, 06/12/22 14:35:00 EDT, Height Start [...] tablet, 5 Refills, Maintenance, 10/18/22 11:11:00 EDT, [facility] #77459, 175, cm, 10/08/22 15:02:00 EDT, Height Start [...] 01/10/23 16:19:00 EST, Route to Pharmacy Electronically, [facility] #[id number], 175, cm, 01/10/23 14:58:00 EST, Height Start Date: 01/10/23 Status: Ordered Fish Oil By Mouth, 0 Refills, Maintenance, 10/08/22 15:08:00 EDT, Partial fill upon patient request if the prescription is for a schedule II opioid drug. Start Date: 10/08/22 Status: Ordered Forreston Belt Forreston Belt, See Instructions, # 1 each, Refills [...] 0 Refills, Maintenance, 11/14/22 11:39:00 EDT, Film, [facility] #[id number], Partial fill upon patient request if the prescription is for a schedule II opioid drug., 1 patch Topically... Start Date: 11/14/22 Status: Ordered losartan 100 mg oral tablet 1 tablet, By Mouth, Daily, # 90 tablet, 0 Refills, Maintenance, 10/31/22 14:33:00 EDT, [facility] #70356, 175, cm, 10/08/22 15:02:00 EDT, Height Start [...] Care Team Personnel Name: Jermaine Sullivan Position: [facility] PCO Associate Professional Member Role: PCP Address: Address: [address] [place] [address]- Care Team Related Persons Name: MANUEL BRIDGES Address: home [address] [place] [address] Name: MANUEL BRIDGES Address: home [address] [facility] [address] [place] [address] Name: MANUEL BRIDGES Address: home [address] [place] [address] Name: DAYNA CÁRDENAS Address: home [address] [place] [address] Name: DAYNA CÁRDENAS Address: home [address] [place] [address]
--- OUTSIDE RECORDS SUMMARY | 2023-08-13 19:11 | XMS_ITS | Continuity of Care Document ---
Author Organization [facility] Address [address] [place] [address]- Care Team Providers Care Market Sales Manager Name Role Phone Jermaine Sullivan Primary Care Physician [phone] Encounter [facility] Date(s): 10/08/22 - 11/07/22 [facility] [address] [place] [address]- Attending Physician: Oziel Kurtz Admitting Physician: Oziel [...] tablet, 1 Refills, Maintenance, 09/01/22 9:55:00 EDT, [facility] #[id number], 175, cm, 06/12/22 14:35:00 EDT, Height Start [...] tablet, 5 Refills, Maintenance, 10/18/22 11:11:00 EDT, [facility] #86803, 175, cm, 10/08/22 15:02:00 EDT, Height Start [...] 11/22/21 14:02:00 EDT, Route to Pharmacy Electronically, [facility] #[id number], Partial fill upon patient request if the prescription is for a schedule II o... Start Date: 11/22/21 Status: Ordered Fish Oil By Mouth, 0 Refills, Maintenance, 10/08/22 15:08:00 EDT, Partial fill upon patient request if the prescription is for a schedule II opioid drug. Start Date: 10/08/22 Status: Ordered Paducah Belt Paducah Belt, See Instructions, # 1 each, Refills [...] tablet, 0 Refills, Maintenance, 10/31/22 14:33:00 EDT, [facility] #[id number], 175, cm, 10/08/22 15:02:00 EDT, Height Start [...] Gm, 5 Refills, Maintenance, 06/12/22 15:02:00 EDT, [facility] #[id number], Partial fill upon patient request... Start Date: [...] 100 in lifetime) entered on: 05/23/21 Sex Laboratory * Event Display: Non Lab Results Authored Date: * Event Display: Non Lab Results Authored Date: Patient Care team information Care Team Personnel Name: Jermaine Sullivan Position: [facility] PCO Associate Professional Member Role: PCP Address: Address: [address] [place] [address] [place] [address]- [place] Care Team Related Persons Name: SAMSONGEORGIAMANUEL Address: home [address] [place] [address] Name: MANUEL BRDIGES Address: home [address] [place] [address] Name: MANUEL BRIDGES Address: [address] [place] [address] Name: DAYNA CÁRDENAS Address: [address] [place] [address] Name: DAYNA CÁRDENAS Address: [address] [place] [address]
--- OUTSIDE RECORDS SUMMARY | 2023-08-13 19:11 | XMS_ITS | Continuity of Care Document ---
Author Organization [facility] Primary Car e Cheng Address [address] [place] [address]- Care Team Providers Care Machine Stonecutter Name Role Phone Jermaine Sullivan Primary Care Physician [phone] Encounter [facility] Date(s): 11/17/22 - 12/17/22 [facility] Primary Care Cheng [address] [place] [address]- Allergies, Adverse Reactions, Alerts No Known Allergies [...] tablet, 1 Refills, Maintenance, 09/01/22 9:55:00 EDT, [facility] #[id number], 175, cm, 06/12/22 14:35:00 EDT, Height Start [...] tablet, 5 Refills, Maintenance, 10/18/22 11:11:00 EDT, [facility] #[id number], 175, cm, 10/08/22 15:02:00 EDT, Height Start [...] 12/04/22 10:35:00 EDT, Route to Pharmacy Electronically, [facility] #[id number], 175, cm, 11/29/22 14:11:00 EDT, Height Start Date: 12/04/22 Status: Ordered Fish Oil By Mouth, 0 Refills, Maintenance, 10/08/22 15:08:00 EDT, Partial fill upon patient request if the prescription is for a schedule II opioid drug. Start Date: 10/08/22 Status: Ordered Mcdaniel Belt Mcdaniel Belt, See Instructions, # 1 each, Refills [...] 0 Refills, Maintenance, 11/14/22 11:39:00 EDT, Film, [facility] #[id number], Partial fill upon patient request if the prescription is for a schedule II opioid drug., 1 patch Topically... Start Date: 11/14/22 Status: Ordered losartan 100 mg oral tablet 1 tablet, By Mouth, Daily, # 90 tablet, 0 Refills, Maintenance, 10/31/22 14:33:00 EDT, [facility] #[id number], 175, cm, 10/08/22 15:02:00 EDT, Height Start [...] Professional Member Role: PCP Address: Address: [address] [place] [address] [place] [address]- Care Team Related Persons Name: MANUEL BRIDGES Address: home [address] [place] [address] Name: MANUEL BRIDGES Address: home [address] [place] [address] Name: MANUEL BRIDGES Address: home [address] [place] [address] Name: DAYNA CÁRDENAS Address: [address] [place] [address] Name: DAYNA CÁRDENAS Address: [address] [place] [address]
--- OUTSIDE RECORDS SUMMARY | 2023-08-13 19:11 | XMS_ITS | Continuity of Care Document ---
Author Organization [facility] Primary Car e Cheng Address [address] [place] [address]- Care Team Providers Care Special Education Aide Name Role Phone Jermaine Sullivan Primary Care Physician Encounter [facility] Date(s): 09/28/22 - 10/28/22 [facility] Care Cheng [address] [place] [address]- Allergies, Adverse Reactions, Alerts No Known Allergies [...] tablet, 1 Refills, Maintenance, 09/01/22 9:55:00 EDT, [facility] #[id number], 175, cm, 06/12/22 14:35:00 EDT, Height Start [...] tablet, 5 Refills, Maintenance, 10/18/22 11:11:00 EDT, [facility] #[id number], 175, cm, 10/08/22 15:02:00 EDT, Height Start [...] 11/22/21 14:02:00 EDT, Route to Pharmacy Electronically, [facility] #[id number], Partial fill upon patient request if the [...] tablet, 0 Refills, Maintenance, 08/15/22 10:39:00 EDT, [facility] #[id number], 175, cm, 06/12/22 14:35:00 EDT, Height Start [...] Gm, 5 Refills, Maintenance, 06/12/22 15:02:00 EDT, [facility] #32117, Partial fill upon patient request... Start Date: [...] Care Team Personnel Name: Jermaine Sullivan Position: [facility] PCO Associate Professional Member Role: PCP Address: Address: [address] [place] [address] Care Team Related Persons Name: MANUEL BRIDGES Address: home [address] [address] Name: MANUEL BRIDGES Address: home [address] [place] [address] Name: MANUEL BRIDGES Address: home [address] [place] [address] Name: DAYNA CÁRDENAS Address: home [address] [place] [address] Name: DAYNA CÁRDENAS Address: home [address] [place] [address]
--- OUTSIDE RECORDS SUMMARY | 2023-08-13 19:11 | XMS_ITS | Continuity of Care Document ---
Author Organization [facility] Primary Car e Cheng Address [address] [place] [address]- Care Team Providers Care Wire Fence Erector Name Role Phone Jermaine Sullivan Primary Care Physician [phone] Encounter [facility] Date(s): 10/17/22 - 11/16/22 [facility] Care Cheng [address] [place] [address]- Allergies, Adverse Reactions, Alerts No Known Allergies [...] tablet, 1 Refills, Maintenance, 09/01/22 9:55:00 EDT, [facility] #[id number], 175, cm, 06/12/22 14:35:00 EDT, Height Start [...] tablet, 5 Refills, Maintenance, 10/18/22 11:11:00 EDT, [facility] #[id number], 175, cm, 10/08/22 15:02:00 EDT, Height Start [...] 11/22/21 14:02:00 EDT, Route to Pharmacy Electronically, [facility] #[id number], Partial fill upon patient request if the prescription is for a schedule II o... Start Date: 11/22/21 Status: Ordered Fish Oil By Mouth, 0 Refills, Maintenance, 10/08/22 15:08:00 EDT, Partial fill upon patient request if the prescription is for a schedule II opioid drug. Start Date: 10/08/22 Status: Ordered Glendale Belt Glendale Belt, See Instructions, # 1 each, Refills [...] opioid drug. Start Date: 12/27/21 Status: Ordered Large Overnight Pull Ups Large Overnight Pull Ups, See Instructions, # 30 each, Refills 11, Tot. Refills 11, Maintenance, use on at bedtime Dx: R32, 11/14/22 11:17:00 EDT, Supply Start Date: 11/14/22 Status: Ordered lidocaine 1.8% topical film 1 patch, Topically, Daily, leave on up to 12 hours, # 30 each, 0 Refills, Maintenance, 11/14/22 11:39:00 EDT, Film, [facility] #[id number], Partial fill upon patient request if the prescription is for a schedule II opioid drug., 1 patch Topically... Start Date: 11/14/22 Status: Ordered losartan 100 mg oral tablet 1 tablet, By Mouth, Daily, # 90 tablet, 0 Refills, Maintenance, 10/31/22 14:33:00 EDT, [facility] #[id number], 175, cm, 10/08/22 15:02:00 EDT, Height Start [...] Gm, 5 Refills, Maintenance, 06/12/22 15:02:00 EDT, [facility] #31429, Partial fill upon patient request... Start Date: [...] Professional Member Role: PCP Address: Address: [address] [place] [address] [address]- Care Team Related Persons Name: MANUEL BRIDGES Address: home [address] [place] [address] Name: MANUEL BRIDGES Address: [address] [place] [address] Name: MANUEL BRIDGES Address: home [address] [place] [address] Name: DAYNA CÁRDENAS Address: [address] [place] [address] Name: DAYNA CÁRDENAS Address: [address] [place] [address]
--- OUTSIDE RECORDS SUMMARY | 2023-08-13 19:11 | XMS_ITS | Continuity of Care Document ---
Author Organization [facility] Primary Car e Cheng Address [address] [place] [address]- Care Team Providers Care Assembly Machine Tool Setter Name Role Phone Jermaine Sullivan Primary Care Physician Encounter [facility] Date(s): 08/17/22 - 09/16/22 [facility] Care Cheng [address] [place] [address]- Allergies, Adverse Reactions, Alerts No Known Allergies [...] tablet, 1 Refills, Maintenance, 09/01/22 9:55:00 EDT, [facility] #[id number], 175, cm, 06/12/22 14:35:00 EDT, Height Start [...] tablet, 0 Refills, Maintenance, 04/10/22 10:11:00 EST, [facility] #[id number], 175, cm, 12/28/21 14:37:00 EDT, Height Start [...] 11/22/21 14:02:00 EDT, Route to Pharmacy Electronically, [facility] #[id number], Partial fill upon patient request if the [...] tablet, 0 Refills, Maintenance, 08/15/22 10:39:00 EDT, [facility] #06419, 175, cm, 06/12/22 14:35:00 EDT, Height Start [...] Gm, 5 Refills, Maintenance, 06/12/22 15:02:00 EDT, [facility] #05266, Partial fill upon patient request... Start Date: [...] Care Team Personnel Name: Jermaine Sullivan Position: [facility] PCO Associate Professional Member Role: PCP Address: Address: [address] [place] [address] [place] [address]- Care Team Related Persons Name: MANUEL BRIDGES Address: home [address] [place] [address] Name: MANUEL BRIDGES Address: home [address] [place] [address] Name: MANUEL BRIDGES Address: [address] [place] [address] Name: DAYNA CÁRDENAS Address: [address] [place] [address] Name: DAYNA CÁRDENAS Address: home [address] [place] [address]
--- OUTSIDE RECORDS SUMMARY | 2023-08-13 19:11 | XMS_ITS | Continuity of Care Document ---
Author Organization [facility] Address [address] [place] [address]- Care Team Providers Care Lab Aide Name Role Phone Jermaine Sullivan Primary Care Physician Encounter [facility] Date(s): 04/13/23 - 07/29/23 [facility] [address] [place], [place] [address] Attending Physician: Jermaine Sullivan Allergies, Adverse Reactions, [...] tablet, 1 Refills, Maintenance, 09/01/22 9:55:00 EDT, [facility] #[id number], 175, cm, 06/12/22 14:35:00 EDT, Height Start [...] tablet, 5 Refills, Maintenance, 10/18/22 11:11:00 EDT, [facility] #[id number], 175, cm, 10/08/22 15:02:00 EDT, Height Start [...] Replace Required Details, Route to Pharmacy Electronically, [facility] #[id number], 175, cm, 01/10/23 1... Start Date: 01/10/23 Status: Ordered Gro[place] Belt Gro[place] Belt, See Instructions, # 1 each, Refills [...] 0 Refills, Maintenance, 05/25/23 20:44:00 EDT, Film, [facility] #[id number], Partial fill upon patient request if the prescription is for a schedule II opioid drug., 1 patch Topically... Start Date: 05/25/23 Status: Ordered losartan 100 mg oral tablet 1 tablet, By Mouth, Daily, # 90 tablet, 0 Refills, Maintenance, 06/13/23 7:35:00 EDT, [facility] #[id number], 175, cm, 02/09/23 17:29:00 EST, Height Start [...] transfers dx: M48.00, M17.9, G31.83 fax # [phone], 07/25/23 15:30:00 EDT, Supply Start Date: 07/25/23 [...] Care Team Personnel Name: Jermaine Sullivan Position: [facility] PCO Associate Professional Member Role: PCP Address: Address: [address] [place] [address]- Care Team Related Persons Name: MANUEL BRIDGES Address: home [address] [place] [address] Name: MANUEL BRIDGES Address: home [address] [facility] [address] [place] [id number] Name: MANUEL BRIDGES Address: home [address] [place] [address] Name: DAYNA CÁRDENAS Address: [address] [place] [address] Name: DAYNA CÁRDENAS Address: [address] [place] [address]
--- OUTSIDE RECORDS SUMMARY | 2023-08-13 19:11 | XMS_ITS | Continuity of Care Document ---
Author Organization [facility] Primary [facility] Address [address] [place] [address]- Care Team Providers Care Internal Audit Senior Manager Name Role Phone Jermaine Sullivan Primary Care Physician Encounter [facility] Date(s): 10/04/22 - 11/03/22 [facility] [address] [place] [address]- Allergies, Adverse Reactions, Alerts No Known Allergies [...] tablet, 1 Refills, Maintenance, 09/01/22 9:55:00 EDT, [facility] #[id number], 175, cm, 06/12/22 14:35:00 EDT, Height Start [...] tablet, 5 Refills, Maintenance, 10/18/22 11:11:00 EDT, [facility] #[id number], 175, cm, 10/08/22 15:02:00 EDT, Height Start [...] 11/22/21 14:02:00 EDT, Route to Pharmacy Electronically, [facility] #[id number], Partial fill upon patient request if the [...] tablet, 0 Refills, Maintenance, 10/31/22 14:33:00 EDT, [facility] #[id number], 175, cm, 10/08/22 15:02:00 EDT, Height Start [...] Gm, 5 Refills, Maintenance, 06/12/22 15:02:00 EDT, [facility] #[id number], Partial fill upon patient request... Start Date: [...] Team Personnel Name: Jermaine Sullivan Position: [facility] PCO Associate Professional Member Role: PCP Address: Address: [address] [place] [address] Care Team Related Persons Name: MANUEL BRIDGES Address: home [address] [address] Name: MANUEL BRIDGES Address: home [address] [place] [address] Name: MANUEL BRIDGES Address: [address] [place] [address] Name: DAYNA CÁRDENAS Address: [address] [place] [address] Name: DAYNA CÁRDENAS Address: [address] [place] [address]
--- OUTSIDE RECORDS SUMMARY | 2023-08-13 19:11 | XMS_ITS | Continuity of Care Document ---
Author Organization [facility] Primary [facility] Address [address] [place] [address]- Care Team Providers Care Photo Journalist Name Role Phone Jermaine Sullivan Primary Care Physician Encounter [facility] Date(s): 10/03/22 - 11/02/22 [facility] Cheng [address] [place] [address]- Allergies, Adverse Reactions, Alerts No Known Allergies [...] tablet, 1 Refills, Maintenance, 09/01/22 9:55:00 EDT, [facility] #[id number], 175, cm, 06/12/22 14:35:00 EDT, Height Start [...] tablet, 5 Refills, Maintenance, 10/18/22 11:11:00 EDT, [facility] #[id number], 175, cm, 10/08/22 15:02:00 EDT, Height Start [...] 11/22/21 14:02:00 EDT, Route to Pharmacy Electronically, [facility] #[id number], Partial fill upon patient request if the [...] tablet, 0 Refills, Maintenance, 10/31/22 14:33:00 EDT, [facility] #[id number], 175, cm, 10/08/22 15:02:00 EDT, Height Start [...] Gm, 5 Refills, Maintenance, 06/12/22 15:02:00 EDT, [facility] #[id number], Partial fill upon patient request... Start Date: [...] Associate Professional Member Role: PCP Address: Address: [address] [place] [address] [place] [place] [address] Care Team Related Persons Name: MANUEL BRIDGES Address: home [address] [place] [address] Name: MANUEL BRIDGES Address: [address] [place] [address] Name: MANUEL BRIDGES Address: home [address] [facility] [address] [place] [address] Name: DAYNA CÁRDENAS Address: [address] [place] [address] Name: DAYNA CÁRDENAS Address: [address] [place] [address]
--- OUTSIDE RECORDS SUMMARY | 2023-08-13 19:11 | XMS_ITS | Continuity of Care Document ---
Author Organization [facility] Primary Car [facility] Address [address] [place] [address]- Care Team Providers Care Video Engineer Name Role Phone Jermaine Sullivan Primary Care Physician Encounter [facility] Date(s): 09/19/22 - 10/19/22 [facility] Care [facility] [address] [place] [address]- Allergies, Adverse Reactions, Alerts No Known Allergies [...] tablet, 1 Refills, Maintenance, 09/01/22 9:55:00 EDT, [facility] #[id number], 175, cm, 06/12/22 14:35:00 EDT, Height Start [...] tablet, 5 Refills, Maintenance, 10/18/22 11:11:00 EDT, [facility] #[id number], 175, cm, 10/08/22 15:02:00 EDT, Height Start [...] 11/22/21 14:02:00 EDT, Route to Pharmacy Electronically, [facility] #[id number], Partial fill upon patient request if the [...] tablet, 0 Refills, Maintenance, 08/15/22 10:39:00 EDT, [facility] #[id number], 175, cm, 06/12/22 14:35:00 EDT, Height Start [...] Gm, 5 Refills, Maintenance, 06/12/22 15:02:00 EDT, [facility] #[id number], Partial fill upon patient request... Start Date: [...] Professional Member Role: PCP Address: Address: [address] [place] [address]- Care Team Related Persons Name: MANUEL BRIDGES Address: home [address] [place] [address] Name: MANUEL BRIDGES Address: home [address] [facility] [address] [place] [address] Name: MANUEL BRIDGES Address: [address] [place] [address] Name: DAYNA CÁRDENAS Address: home [address] [place] [address] Name: DAYNA CÁRDENAS Address: home [address] [place] [address]
[2023-08-13 21:58] VITALS: BP 163/95; PULSE 70; RESP 16; TEMP 36.8; O2SAT 96
== END 2023-08-14 02:05 | disposition home or self-care (01) ==
PROVIDERS: Emergency Provider Student in an Organized Health Care Education/Training Program; PCP Student in an Organized Health Care Education/Training Program
DX: S06.0X0A Concussion without loss of consciousness, initial encounter (principal); R11.0 Nausea; G31.83 Neurocognitive disorder with Lewy bodies; F02.80 Dementia in other diseases classified elsewhere, unspecified severity, without behavioral disturbance, psychotic disturbance, mood disturbance, and anxiety; M54.2 Cervicalgia; R51.9 Headache, unspecified; W18.30XA Fall on same level, unspecified, initial encounter; Y93.9 Activity, unspecified; Y92.009 Unspecified place in unspecified non-institutional (private) residence as the place of occurrence of the external cause; Y99.8 Other external cause status; Z79.899 Other long term (current) drug therapy
CPT/HCPCS: 70450; 72125; 99284

== ENCOUNTER → 2023-09-19 13:17 | Outpatient (BNVA) | payer OTHER, SELFPAY | PROVIDERS: PCP Student in an Organized Health Care Education/Training Program; Visit Provider Internal Medicine ==

== ENCOUNTER 2023-09-24 14:27 | Outpatient (AMB) | payer OTHER, SELFPAY ==
[2023-09-24 14:56] VITALS: BP 110/78; PULSE 59; O2SAT 95
--- NOTE | 2023-09-24 14:56 | MHC.OFFVIS ---
Vital Signs 09/24/23 14:56 Height 50 ft BP 110/78 Blood Pressure Location Lt brachial Position Sitting Pulse 59 Pulse Source Pulse Oximeter Pulse Oximetry (%) 95 Oxygen Delivery Method Room Air Intake Visit Reasons: Shortness of breath Intake Note: pt is here for follow up and feels some heavy in chest, using incentive spirometer 1-2 x a week, still using cpap at night and during the daytime naps, and allergy symptoms nose running and sneezing using afrin and allergy pill. Packaging Specialist Required: No Allergies Seasonal Allergies Allergy (Mild, Verified 09/24/23 15:24) sneezing, watery eyes Medication List - Last Reconciled 09/24/23 by Magali Frey MD albuterol sulfate 90 mcg/actuation 2 inhalations inhalation Q4-6H PRN amantadine HCl 100 mg PO BID amlodipine 10 mg PO BEDTIME ascorbic acid (vitamin C) 500 mg PO DAILY cetirizine 10 mg PO DAILY cholecalciferol (vitamin D3) 25 mcg PO DAILY cyanocobalamin (vitamin B-12) 1,000 mcg PO DAILY diclofenac sodium 1% (Voltaren Arthritis Pain) 4 grams topical QID PRN ferrous sulfate 324 mg PO BEDTIME losartan 50 mg PO DAILY Do you need a note to return to daycare/school/sports/work: No HPI HPI Shortness of breath: Details: 78 years old gentleman originally from [facility], 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 He has advanced parkinsonism, with impaired locomotion, and dysarthria. He does have some choking spells, even on soft thickened diet, but has been able to cough up. Thus he has some coughing bouts after eating. And feels somewhat congested. Shortness of breath is less than before, as he has been using the incentive spirometry device. The visiting nurse has recommended that he should have a nebulizer at home . [facility] Medical History (Updated 09/24/23 @ 15:33 by Magali Frey MD) At risk for aspiration JAYASHREE on CPAP Mild bibasilar atelectasis [place] (dyspnea on exertion) Dementia Physical deconditioning Frequent falls Seasonal allergies Hyperlipidemia Hypertension GI bleed Social History Alcohol intake: current Alcohol intake frequency: does not drink Patient Tobacco Use Status: Never used Tobacco Advance Directives Date on File: 11/16/22 service: No Review of Systems Const Details: Most of the information is provided by his daughter. And the information is basically same as stated up in the history of present illness. All systems reviewed & are unremarkable except as noted in HPI and below Physical Exam Vital Signs: Last Vital Signs Pulse 59 09/24/23 14:56 BP 110/78 09/24/23 14:56 Pulse Ox 95 09/24/23 14:56 Oxygen Delivery Method Room Air 09/24/23 14:56 Const General: comfortable, no acute distress, alert and awake (But slow in conversation) Orientation/consciousness: patient oriented x3 HEENT Head: Yes normal to inspection General nose exam: No nasal polyps present and No nasal discharge present Face and sinus: Yes sinuses nontender Mouth: oropharynx normal Throat: Yes posterior oropharynx normal Eyes General: appearance normal, both eyes and all related structures Neck Neck: Yes normal visual inspection, Yes no lymphadenopathy, Yes trachea midline and Yes no JVD Thyroid: Thyroid normal Chest Chest palpation & inspection: normal inspection of the chest, normal palpation of entire chest wall and no tenderness Resp Other: Percussion note is resonant. Breath sounds are equal. On both sides Breath sounds are slightly diminished over the lower lobe areas. However no adventitious sounds are heard. Cardio Palpation: normal PMI Rate: regular rate Rhythm: regular rhythm Heart sounds: no gallops and no murmurs GI Palpation (GI): Soft to palpation, Tenderness to palpation present (GI), No hepatosplenomegaly present and Palpable mass present Auscultation: normal bowel sounds Back/Spine/Pelvis Thoracic/Lumbar Spine: thoracic and lumbar spine normal to inspection Skin General skin exam: no rashes or lesions noted Neuro General: patient oriented x3, No gait normal (He is in the wheelchair not able to stand or walk due to his poor balance) and no focal motor deficits Cranial nerves: Yes CN's II-XII intact bilaterally and Yes Other cranial nerve findings present (There is no focal motor or sensory deficit however he has general weakness ) Extrem General: Yes normal to inspection, Yes no clubbing, cyanosis or edema and Yes no calf tenderness Psych Speech and movement: Normal speech and movement present Assessment & Plan Assessment & Plan (1) Parkinsonism: Comment: He has rather advanced parkinsonism, Along with impaired locomotion, he also has dysarthria , and mild dysphagia. He is at risk of pulmonary aspirations, but is able to cough up the food particle after eating. Code(s): G20 - Parkinson's disease Category: Medical Plan: We talked about the risk of aspirations and, precautions to avoid the aspiration. As he has tendency of becoming somewhat congested after eating, I think use of nebulizer with saline solution would be helpful. So a nebulizer is prescribed and I will also prescribe saline solution to be used in the nebulizer. (2) Mild bibasilar atelectasis: Comment: He has difficulty in expanding his lungs completely, resulting in bibasilar atelectasis. Use of incentive spirometry has been helping. Code(s): J98.11 - Atelectasis Category: Medical Plan: Advised to do breathing exercises with the incentive spirometry device at least 3 times a day (3) JAYASHREE on CPAP: Comment: He is the grossly obese, has history of obstructive sleep apnea, being treated with CPAP Code(s): G47.33 - Obstructive sleep apnea (adult) (pediatric) Category: Medical Plan: According to the daughter, he is very compliant and uses the CPAP every night. Advised to continue using it, regularly. (4) At risk for aspiration: Comment: As he has some degree of dysarthria and dysphagia, He remains at higher risk for pulmonary aspirations. The family is definitely watching him after eating. Code(s): Z91.89 - Other specified personal risk factors, not elsewhere classified Category: Medical Plan: Aspiration precautions explained. Use of nebulizer will be helpful to clear the airways , if he develops any respiratory distress. Medications: New sodium chloride 3% 4 mL inhalation Q6H PRN 240 mL 4RF secretions 30 days G20 - Parkinson's disease, J98.11 - Atelectasis, Z91.89 - Other specified personal risk factors, not elsewhere classified Coding Level of Care Code Est Pt Level 3 (37526) Diagnoses Parkinsonism G20 Mild bibasilar atelectasis J98.11 JAYASHREE on CPAP G47.33 At risk for aspiration Z91.89
== END 2023-09-24 15:23 | disposition home or self-care (01) ==
PROVIDERS: PCP Student in an Organized Health Care Education/Training Program; Visit Provider Internal Medicine
DX: J98.11 Atelectasis (principal); G47.33 Obstructive sleep apnea (adult) (pediatric)
CPT/HCPCS: 99213

== ENCOUNTER → 2023-09-24 14:27 | Outpatient (BNVA) | payer OTHER, SELFPAY | PROVIDERS: PCP Student in an Organized Health Care Education/Training Program; Visit Provider Internal Medicine | DX: G20.A1 Parkinson's disease without dyskinesia, without mention of fluctuations (principal); J98.11 Atelectasis; G47.33 Obstructive sleep apnea (adult) (pediatric); Z91.89 Other specified personal risk factors, not elsewhere classified | CPT/HCPCS: 99212 ==